=== PATIENT | male | born 1950 | race Caucasian/White ===

== ENCOUNTER → 2016-09-20 | Outpatient (CLI) | payer BC ==
[2016-09-20 12:10] LABS: ALT 30 U/L (21-72); AST 30 U/L (17-59); Alkaline Phosphatase 41 U/L (38-126); Anion Gap 12 mmol/L; Blood Urea Nitrogen 26 mg/dL (9-20); Calcium 9.6 mg/dL (8.4-10.2); Carbon Dioxide 29 mmol/L (22-30); Chloride 103 mmol/L (98-107); Glucose 124 mg/dL (74-99); Non-African American GFR(MDRD) >60 (>60 ml/min/1.73 sqM); Potassium 4.4 mmol/L (3.5-5.1); Sodium 144 mmol/L (137-145); Total Protein 7.1 g/dL (6.3-8.2)
[2016-09-20 12:59] LABS: Vitamin B12 367 pg/mL (239-931)
== END | disposition home or self-care (01) ==
LOC: LABWHC1 11:30
PROVIDERS: ATTEND Internal Medicine Endocrinology, Diabetes & Metabolism
DX: E11.65 Type 2 diabetes mellitus with hyperglycemia (principal)
CPT/HCPCS: 36415; 80053; 82533; 82607; 84403; 84439; 84443

== ENCOUNTER → 2016-10-11 | Outpatient (CLI) | payer BC ==
[2016-10-11 12:56] LABS: CH 31.5; HCT 37.1 % (39.0-53.0); HDW 2.91; HGB 12.6 gm/dL (13.0-17.5); MCH 30.6 pg (25.0-35.0); MCHC 33.9 g/dL (31.0-37.0); MCV 90.3 fL (80.0-100.0); Mean Platelet Volume 6.7; RBC 4.11 m/uL (4.30-5.90); RDW 13.2 % (11.5-15.5); WBC 6.9 k/uL (3.8-10.6)
[2016-10-11 13:46] LABS: Prostate Specific Antigen 0.99 ng/mL (0.00-4.00)
== END | disposition home or self-care (01) ==
LOC: LABWHC1 12:19
PROVIDERS: ATTEND Internal Medicine Endocrinology, Diabetes & Metabolism
DX: E29.1 Testicular hypofunction (principal)
CPT/HCPCS: 36415; 83001; 83002; 84153; 84403; 85027

== ENCOUNTER → 2016-11-03 | Outpatient (CLI) | payer BC, OTHER | END | disposition home or self-care (01) | LOC: LABWHC1 11:33 | PROVIDERS: ATTEND Internal Medicine Endocrinology, Diabetes & Metabolism | DX: E29.1 Testicular hypofunction (principal) | CPT/HCPCS: 36415; 84403 ==

== ENCOUNTER → 2016-11-08 | Outpatient (CLI) | payer BC, OTHER ==
--- NOTE | 2016-11-08 20:26 | US ---
EXAMINATION TYPE: US kidneys/renal and bladder DATE OF EXAM: 11/08/2016 4:57 PM COMPARISON: 07/29/2015 CLINICAL HISTORY: RT flank pain R10.9. Renal stones removed from bilateral kidney in July 2016; d iabetic EXAM MEASUREMENTS: Right Kidney: 10.0 x 6.4 x 5.1 cm Left Kidney: 11.1 x 5.3 x 5.1 cm Post Void Residual Volume: patient was unable to void TECHNOLOGIST IMPRESSION: wnl Right Kidney: No hydronephrosis or masses seen Left Kidney: mid medial cortical cyst = 2.2 x 3.2 x 2.0cm; mid pole hyperechoic focus with posterior shadowing = 0.3 x 0.3 x 0.3; hyperechoic wedge shaped junctional defect mid cortex; sonographic"sweat sign" is noted adjacent to left kidney which suggests renal failure. Bladder: Limited by incomplete distention. Bilateral Jets seen: not seen after 3 minute observation IMPRESSION: 1. Simple appearing left renal cyst is stable. 2. Nonobstructing 3 mm left renal calculus.
== END | disposition home or self-care (01) ==
LOC: RADUSWWP 16:26
PROVIDERS: ATTEND Internal Medicine
DX: N28.1 Cyst of kidney, acquired (principal); N20.0 Calculus of kidney
CPT/HCPCS: 76770

== ENCOUNTER → 2016-11-16 | Outpatient (CLI) | payer BC, OTHER ==
--- NOTE | 2016-11-17 09:10 | MR ---
EXAMINATION TYPE: MR shoulder RT wo con DATE OF EXAM: 11/16/2016 8:31 PM COMPARISON: NONE HISTORY: Rt shoulder, arm and side pain TECHNIQUE: Multiplanar, multisequence imaging of the right shoulder is performed without contrast. FINDINGS: Rotator Cuff: There is a partial full-thickness tear at the anterior insertion of the rotator cuff, t he rotator cuff shows increased signal compatible with tendinosis near its insertion more posteriorly , the posterior insertion also shows suggestion of partial full-thickness tear at its margin. Fluid s ignal in the subacromial subdeltoid bursa. Acromioclavicular Joint: Hypertrophic change causes mass effect on the musculotendinous junction of s upraspinatus Glenohumeral Joint: Intact Labrum: Superior labrum shows some abnormal signal and possible irregularity, truncation, there may b e some degenerative internal signal, there may be a small tear posteriorly at the superior aspect. Biceps Tendon: Shows normal position in the bicipital groove. Some fluid signal is present along the biceps tendon, some thickening suggesting some tendinosis proximally Bone marrow signal: Maintained Other: Distal acromion shows possible small spur, correlate for possible impingement. IMPRESSION: Partial full-thickness tear as described of the rotator cuff. Correlate for impingement. Additional f indings above.
== END | disposition home or self-care (01) ==
LOC: RADMRIMAIN 19:43
PROVIDERS: ATTEND Orthopaedic Surgery
DX: M75.111 Incomplete rotator cuff tear or rupture of right shoulder, not specified as traumatic (principal)

== ENCOUNTER → 2017-04-20 | Outpatient (CLI) | payer OTHER, MEDICARE ==
--- NOTE | 2017-04-20 10:05 | MR ---
EXAMINATION TYPE: MR cervical spine wo con DATE OF EXAM: 04/20/2017 COMPARISON: NONE HISTORY: Neck pain TECHNIQUE: Multiplanar, multisequence images of the cervical spine were acquired. C2-C3: No evidence for degenerative disc disease. No disc bulge/herniation or protrusion. No Canal stenosis. Foramina are patent bilaterally. C3-C4: Small central protrusion is present with minimal anterior thecal sac compression. No spinal ca nal stenosis or neural foraminal stenosis is present. C4-C5: There is left paracentral focal bulging with mild anterior thecal sac compression. This is in close approximation with spinal cord. No spinal canal stenosis stenosis is present. There is moderate left foraminal narrowing. C5-C6: There is loss of disc height through this level. No spinal canal stenosis or neural foraminal stenosis is present. C6-C7: There is a large central broad-based disc herniation with extension beyond the endplates. This has moderate anterior thecal sac compression. This comes in close approximation with spinal cord. Co rd deformity is not identified. No spinal canal narrowing is present at the inferior C6 level with an AP diameter is 0.9 cm. Disc space narrowing is present. Bilateral moderate foraminal narrowing is pr esent. C7-T1: Minimal disc bulge has anterior thecal sac flattening. No AP spinal canal stenosis or neural f oraminal stenosis present. Cervical segments are intact. There is normal alignment. Cervical spinal cord is of normal signal. Craniovertebral junction relationships are within normal limits. IMPRESSION: 1. Large disc herniation C6-7 contributes to mild canal narrowing. 2. Loss of disc height C5-6. 3. Foraminal narrowing C6-7 bilaterally and on the right C4-5.
== END | disposition home or self-care (01) ==
LOC: RADMRIMAIN 07:05
PROVIDERS: ATTEND Orthopaedic Surgery
DX: Z47.89 Encounter for other orthopedic aftercare (principal); M48.02 Spinal stenosis, cervical region; M99.71 Connective tissue and disc stenosis of intervertebral foramina of cervical region; M50.121 Cervical disc disorder at C4-C5 level with radiculopathy; E11.9 Type 2 diabetes mellitus without complications; Z98.890 Other specified postprocedural states
CPT/HCPCS: 72141

== ENCOUNTER → 2017-09-28 | Outpatient (CLI) | payer MEDICARE ==
--- NOTE | 2017-09-28 10:24 | BD ---
EXAMINATION TYPE: MG DEXA axial skeleton. DATE OF EXAM: 09/28/2017 COMPARISON: NONE CLINICAL HISTORY: Calcification and ossification of muscle. Screening for osteoporosis. Height: Weight: FRAX RISK QUESTIONS: Alcohol (3 or more units per day): no Family History (Parent hip fracture): yes /mother Glucocorticoids (More than 3mos): no (Ex: prednisone, prednisolone, methylprednisolone, dexamethasone, and hydrocortisone). History of Fracture in Adulthood: no Secondary Osteoporosis: 1. Type 1 Diabetes: no 2. Hyperthyroidism: no 3. Menopause before 45: na 4. Malnutrition: no 5. Chronic liver disease: no Rheumatoid Arthritis: no Current Tobacco Use: no RISK FACTORS HISTORY OF: Surgery to Spine/Hip(right/left)/Wrist (right/left): no Family History of Osteoporosis: no Active: yes Diet low in dairy products/other sources of calcium: yes Lost more than 2 inches in height since high school: yes Frequent falls: no Poor Health: no Hyperparathyroidism: no Adrenal Insufficiency: no MEDICATIONS: metformin, Januvia, lexapro, lopressor, lovastatin, vit c Additional History: EXAM MEASUREMENTS: Bone mineral densitometry was performed using the [employer] System. Bone mineral density as measured about the Lumbar spine is: ----- L1-L4(G/cm2): 1.192 T Score Values are as follows: ----- L2: 0.3 ----- L3: 0.4 ----- L4: 0.6 ----- L1-L4: 0.1 Bone mineral density has: baseline Bone mineral density about the R hip (g/cm2): 0.926 Bone mineral density about the L hip (g/cm2): 0.980 T Score values are as follows: -----R Neck: -0.8 -----L Neck: -0.4 -----R Total: 0.1 -----L Total: 0.3 Bone mineral density has: baseline IMPRESSION: Normal (Values between +1 and -1 indicate normal bone mass). Consider repeating this study in 5 year s or sooner if there is some new clinical indication. NOTE: T-SCORE=SD OF THE YOUNG ADULT MEAN.
== END | disposition home or self-care (01) ==
LOC: RADBDWWP 09:21
PROVIDERS: ATTEND Internal Medicine
DX: M61.9 Calcification and ossification of muscle, unspecified (principal)
CPT/HCPCS: 77080

== ENCOUNTER 2018-05-26 09:45 | Emergency (ER) | payer MEDICARE, OTHER ==
[2018-05-26 09:51] VITALS: RESP 18
[2018-05-26] MEDS ORDERED: ACETAMINOPHEN TAB 500 MG TAB PO STA (10:06)
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
--- NOTE | 2018-05-26 12:11 | XR ---
EXAMINATION TYPE: XR pelvis AP view , ONE VIEW DATE OF EXAM ORDERED: 05/26/2018 HISTORY: Pain. COMPARISON: Previous study dated 10/29/2009. FINDINGS: Osseous structures about the pelvis are normal. No fracture, dislocation or other acute os seous lesion is seen. IMPRESSION: NO ACUTE OSSEOUS LESION.
--- NOTE | 2018-05-26 12:12 | XR ---
EXAMINATION TYPE: XR chest 2V DATE OF EXAM: 05/26/2018 HISTORY: Pain. REFERENCE: Previous study dated 07/29/2015. FINDINGS: The lungs are clear. Pleural spaces are clear. The heart is not enlarged. IMPRESSION: NO ACUTE INTRATHORACIC ABNORMALITY.
--- NOTE | 2018-05-26 12:13 | XR ---
EXAMINATION TYPE: XR shoulder complete LT , 3 VIEWS DATE OF EXAM ORDERED: 05/26/2018 HISTORY: Pain. COMPARISON: None. FINDINGS: No fracture, dislocation or other acute osseous lesion is seen. There are hypertrophic mariya nges present in the left AC joint. IMPRESSION: NO ACUTE OSSEOUS LESION.
[2018-05-26 13:15] VITALS: BP 150/72; PULSE 60; TEMP 98.2
== END 2018-05-26 12:45 | disposition home or self-care (01) ==
LOC: EC 09:45
DX: S00.01XA Abrasion of scalp, initial encounter (principal); M62.830 Muscle spasm of back; R07.89 Other chest pain; M25.512 Pain in left shoulder; E78.5 Hyperlipidemia, unspecified; I10 Essential (primary) hypertension; E11.9 Type 2 diabetes mellitus without complications; F32.9 Major depressive disorder, single episode, unspecified; Z79.84 Long term (current) use of oral hypoglycemic drugs; Z79.899 Other long term (current) drug therapy; Z95.9 Presence of cardiac and vascular implant and graft, unspecified; V49.9XXA Car occupant (driver) (passenger) injured in unspecified traffic accident, initial encounter; Y92.410 Unspecified street and highway as the place of occurrence of the external cause
CPT/HCPCS: 70450; 71046; 72125; 72170; 99285

== ENCOUNTER 2018-09-19 06:14 | Emergency (ER) | payer MEDICARE ==
[2018-09-19 06:22] VITALS: RESP 18
--- NOTE | 2018-09-19 07:32 | ED ---
General Adult HPI - General Chief complaint: Extremity Injury, Lower Stated complaint: Rt Foot Pain Time Seen by Provider: 09/19/18 07:00 Source: patient, RN notes reviewed Mode of arrival: ambulatory Limitations: no limitations - History of Present Illness Initial comments: This is a 68-year-old male presents emergency Department with a rapid heart tender first MTP joint on the right foot. Patient states she's had gout in the past. Patient states this feels exactly like the gout. Patient denies any fever patient denies any redness or streaking up the leg. Patient denies any other problems at this time. Patient states she woke up this morning was so tender he could not barely touch it or walk on it. Patient is coming in for pain relief. - Related Data Home Medications Medication Instructions Recorded Confirmed metFORMIN HCL [Glucophage] 1,000 mg PO BID 04/24/15 09/19/18 sitaGLIPtin [Januvia] 100 mg PO DAILY 04/24/15 09/19/18 Ascorbic Acid [Vitamin C] 500 mg PO DAILY 07/29/15 09/19/18 Cholecalciferol [Vitamin D3] 2,000 unit PO DAILY 07/29/15 09/19/18 Lisinopril [Zestril] 10 mg PO DAILY 08/12/16 09/19/18 Metoprolol Tartrate [Lopressor] 25 mg PO QAM 08/12/16 09/19/18 Escitalopram Oxalate [Lexapro] 10 mg PO HS 09/19/18 09/19/18 Escitalopram Oxalate [Lexapro] 20 mg PO DAILY 09/19/18 09/19/18 Ibuprofen [Motrin Ib] 600 mg PO Q6H PRN 09/19/18 09/19/18 Multivitamins, Thera [Multivitamin 2 tab PO DAILY 09/19/18 09/19/18 (formulary)] Previous Rx's Medication Instructions Recorded Hydrocodone/Acetaminophen [[place] 1 each PO Q4HR PRN #14 tab 09/19/18 5-325] Indomethacin [Indocin] 50 mg PO Q8H #15 capsule 09/19/18 Allergies Allergy/AdvReac Type Severity Reaction Status Date / Time No Known Allergies Allergy Verified 09/19/18 06:50 Review of Systems ROS Statement: Those systems with pertinent positive or pertinent negative responses have been documented in the HPI. ROS Other: All systems not noted in ROS Statement are negative. Past Medical History Past Medical History: Asthma, Diabetes Mellitus, Hyperlipidemia, Hypertension, Skin Disorder Additional Past Medical History / Comment(s): hx heart murmer, kidney stones, umbilical hernia, History of Any Multi-Drug Resistant Organisms: None Reported Past Surgical History: Heart Catheterization, Orthopedic Surgery, Tonsillectomy Additional Past Surgical History / Comment(s): rt knee surgery, mole removed from rt upper chest, Past Anesthesia/Blood Transfusion Reactions: No Reported Reaction Past Psychological History: Depression Smoking Status: Never smoker Past Alcohol Use History: None Reported Past Drug Use History: None Reported - Past Family History Sister(s) Family Medical History: Deep Vein Thrombosis (DVT) General Exam - General Exam Comments Initial Comments: GENERAL Patient is well-developed and well-nourished. Patient is in mild distress. EYES Patient's pupils are equal and round. Extraocular motion is intact SKIN Unremarkable NEURO The patient is alert and oriented 3 PYSCH Patient has normal interpersonal interactions. MUSCULOSKELETAL Right toe is red at the first MTP joint. There is no streaking there is no redness of the foot. The area that is red and is extremely tender to touch. Limitations: no limitations Course Vital Signs 09/19/18 06:18 Temperature 97.8 F Pulse Rate 83 Respiratory 18 Rate Blood Pressure 151/85 O2 Sat by Pulse 98 Oximetry Disposition Clinical Impression: Gout Disposition: HOME SELF-CARE Condition: Good Instructions (If sedation given, give patient instructions): Gout (ED) Prescriptions: Hydrocodone/Acetaminophen [[place] 5-325] 1 each PO Q4HR PRN #14 tab PRN Reason: Pain Indomethacin [Indocin] 50 mg PO Q8H #15 capsule Is patient prescribed a controlled substance at d/c from ED?: Yes When asked, does pt state using other controlled substances?: No If prescribed controlled substance>3 days was MAPS reviewed?: Prescribed <3 Days If opioid is for acute pain is fill amount 7 days or less?: Yes If Rx opioid, was Start Talking consent form obtained?: Yes Referrals: Johnathon Monteiro MD [Primary Care Provider] - 1-2 days Time of Disposition: 07:28
[2018-09-19 07:57] VITALS: BP 117/76; PULSE 70; TEMP 98.3
== END 2018-09-19 07:53 | disposition home or self-care (01) ==
LOC: EC 06:14
DX: M10.9 Gout, unspecified (principal); E11.9 Type 2 diabetes mellitus without complications; I10 Essential (primary) hypertension; F32.9 Major depressive disorder, single episode, unspecified; Z95.818 Presence of other cardiac implants and grafts; Z79.84 Long term (current) use of oral hypoglycemic drugs; Z79.899 Other long term (current) drug therapy
CPT/HCPCS: 99283

== ENCOUNTER → 2018-10-11 | Outpatient (CLI) | payer MEDICARE ==
--- NOTE | 2018-10-11 15:33 | XR ---
Abdomen HISTORY: Calculus of kidney Frontal view of the abdomen on 2 images correlated prior exam 08/24/2016 There is calcification over the lower pole the left kidney measuring approximately 6 to 7 mm in great est dimension. Lung bases are clear. There is no evident pneumoperitoneum or bowel obstruction. Calci fications in the pelvis felt likely to be vascular. IMPRESSION: Nephrolithiasis left kidney.
== END ==
LOC: RADXRMAIN 15:02
PROVIDERS: ATTEND Urology
DX: N20.0 Calculus of kidney (principal)
CPT/HCPCS: 74018

== ENCOUNTER → 2018-10-19 | Outpatient (CLI) | payer MEDICARE ==
--- NOTE | 2018-10-19 10:15 | XR ---
EXAMINATION TYPE: XR KUB DATE OF EXAM: 10/19/2018 COMPARISON: 10/11/2018 HISTORY: Renal calculus TECHNIQUE: One view abdominal series FINDINGS: The osseous structures are intact. The bowel gas pattern is nonspecific. Right kidney: No definite calculi Left kidney: There are 2 definite calcifications. Mid pole 3 mm calcification and Stable 7 mm lower p ole left renal calculus. Tiny 1 to 2 mm additional lower pole calculus suspected. Pelvis: Within the pelvis there are stable appearing calcifications likely vascular. Hypertrophic mariya nge of the hips noted. Hypertrophic and degenerative change of the spine. IMPRESSION: 1. Stable left-sided nephrolithiasis.
== END ==
LOC: RADXRMAIN 09:39
PROVIDERS: ATTEND Urology
DX: N20.0 Calculus of kidney (principal)
CPT/HCPCS: 74018

== ENCOUNTER → 2019-05-06 | Outpatient (CLI) | payer MEDICARE ==
--- NOTE | 2019-05-06 13:07 | XR ---
EXAMINATION TYPE: XR KUB DATE OF EXAM: 05/06/2019 COMPARISON: NONE HISTORY: Pain TECHNIQUE: One view abdominal series FINDINGS: The osseous structures are intact. The bowel gas pattern is nonspecific. Calcifications are seen ove rlying the left kidney the largest measuring 7 mm. Additional calcifications in the pelvis are stable . Hypertrophic change of the vertebral column and hips noted. IMPRESSION: 1. There are approximately 3 calcifications overlying the mid and lower pole the left kidney largest measuring 7 mm. 2. Pelvic calcifications are stable from the prior exam and therefore likely vascular
== END | disposition home or self-care (01) ==
LOC: RADXRMAIN 12:18
PROVIDERS: ATTEND Urology
DX: N28.89 Other specified disorders of kidney and ureter (principal)
CPT/HCPCS: 74018

== ENCOUNTER 2019-05-30 06:15 | Day surgery (SDC) | payer MEDICARE ==
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
[2019-05-29 09:39] VITALS: BMI 27.9
[~2019-05-30 06:15] MED LIST: GENTAMICIN 140 MG in SODIUM CHLORIDE 0.9% 100 ML IVPB ONE; HYDROmorphone 0.5 MG/0.5 ML SYRINGE IVP PRN; LACTATED RINGERS 1,000 ML IV SCH; LIDOCAINE 1% 20 ML VIAL (10MG/ML) FOR IV START INTRADERMA PRN; ONDANSETRON 4 MG/2 ML VIAL IVP ONE
[2019-05-30] MEDS ORDERED: LACTATED RINGERS 1,000 ML IV ONE ×2 (06:44→08:21)
[2019-05-30 06:54] LABS: Glucose,Whole Blood 151 mg/dL (75-99)
[2019-05-30] MEDS ORDERED: ONDANSETRON 4 MG/2 ML VIAL IVP ONE (06:58)
[2019-05-30] MEDS ORDERED: MIDAZOLAM 2 MG/2 ML VIAL ONE (07:25)
[2019-05-30] MEDS ORDERED: fentaNYL (PF) 50 MCG/ML 2 ML AMP ONE (07:25)
[2019-05-30] MEDS ORDERED: ePHEDrine SULFATE/0.9% NACL/PF 50 MG/5 ML SYRINGE IV ONE (07:25)
[2019-05-30] MEDS ORDERED: PROPOFOL 10 MG/ML 20 ML VIAL IV ONE (07:25)
[2019-05-30] MEDS ORDERED: PHENYLEPHRINE-0.9% NACL SYG 1 MG/10 ML SYRINGE ONE (07:25)
[2019-05-30] MEDS ORDERED: SUCCINYLCHOLINE CHLORIDE 100 MG/5 ML SYR IV ONE (07:25)
[2019-05-30] MEDS ORDERED: LIDOCAINE 1% INJ 10MG/ML (20 ML MDV) ONE (07:25)
[2019-05-30] MEDS ORDERED: IOPAMIDOL-370 50ML BTL MISCELLANE ONE ×2 (09:06)
--- NOTE | 2019-05-30 09:47 | XR ---
EXAMINATION TYPE: XR abdomen 1V DATE OF EXAM: 05/30/2019 COMPARISON: 05/16/2019 HISTORY: Preop TECHNIQUE: One view abdominal series FINDINGS: Left kidney: There are approximately 6 calcifications overlying the left renal outline the largest me asuring 7 mm. Right kidney: No definite calcifications. Right-sided double-J ureteral stent noted. Pelvis: Nonspecific bilateral pelvic calculi are stable from the prior exam. Mild hypertrophic changes of vertebral column. Arthropathy of the hip joints. Bowel gas pattern nonsp ecific. IMPRESSION: 1. Stable left-sided nephrolithiasis. 2. Right-sided double-J ureteral stent.
[2019-05-30 09:53] VITALS: RESP 16; TEMP 97.4
[2019-05-30 10:55] VITALS: BP 143/65; PULSE 80
--- NOTE | 2019-05-30 11:31 | FL ---
EXAMINATION TYPE: FL urography retrograde DATE OF EXAM: 05/30/2019 COMPARISON: NONE HISTORY: Fluoroscopy TECHNIQUE: Fluoroscopy. FINDINGS: 1.03 minutes of fluoroscopy provided. IMPRESSION: As Above.
[2019-05-30 11:38] LABS: Glucose,Whole Blood 187 mg/dL (75-99)
--- NOTE | 2019-05-30 18:54 | P.OP ---
Date of Procedure: 05/30/19 Preoperative Diagnosis: ureteral calculus Postoperative Diagnosis: same Procedure(s) Performed: cystoscopy right sided ureteroscopy holmium laser lithotripsy stone basketing and stent exchange, left retrograde pyelogram Implants: 4.8-Greek by 26 cm stent Indications for Procedure: 69-year-old male that presented with a right-sided ureteral calculi status post stent placement he presents today for right-sided ureteroscopy. I have explained the operation/procedure to the patient, including the risks, benefits, side effects, alternative therapies (including not receiving the proposed treatment or service), the likelihood of the patient achieving his/her goals, and potential recuperation problems for the procedure/sedation/analgesia, as well as any blood products, if indicated. I also explained to the patient the risks, benefits and side effects of the alternatives, as well as the risks related to not receiving the proposed procedure, care, treatment, or services Operative Findings: multipe calculus in the right distal ureter Description of Procedure: the patient was brought to the operating room and general anesthesia was in duced. He was prepped and draped in sterile fashion and placed in dorsal lithotomy position. Cystoscope fitted with a 22 sheath was inserted per urethra and advanced into the bladder the stent was grasped with a stent grasper and removed intact. Next the cystoscope was reinserted per urethra into the bladder on the right ureteral orifice was visualized. We attempted to place a wire into the ureteral orifice but the stone was impacted at the UVJ. At this time a rigid ureteroscope was inserted and advanced into the bladder stone was fragmented using holmium laser lithotripsy. And stone basketing was performed. Of note there were multiple calculi more than 5 calculus in total along the distal ureter all the stones were broken up using the holmium laser and basketing using the zero tip stone basket. After the stones were cleared the ureteroscope was advanced into the proximal ureter no additional stones were visualized the ureteroscope was withdrawn and a Glidewire was advanced through the ureteroscope and into the renal pelvis. Next a 12-14 Greek access sheath was advanced over the Glidewire into the renal pelvis. Flexible ureteroscopy was inserted per sheath and renoscopy was performed which showed no calculus in the kidney. RPG was also performed which showed no filling defects. Pullback ureteroscopy confirmed no injury to the ureter and no residual stones. Next a cystoscope fitted with a 22 sheath was inserted per urethra the right ureteral orifice was visualized and a 0.035 Glidewire was advanced to the renal pelvis. A 4.8-Greek by 26 cm stent was advanced over the wire into the renal pelvis, curl was confirmed fluoroscopically proximally and using the cystoscope distally attention was then carried to the left side, the left ureteral orifice was intubated with a 5-Greek open-ended catheter and retrograde pyelogram was performed which showed no hydronephrosis or any evidence of stone along the ureter. There were 2 radiopaque stones in the left kidney. The bladder was emptied at the end of the case and the cystoscope withdrawn withdrawn the patient was awakened from anesthesia and taken to PACU in stable condition
== END 2019-05-30 11:41 | disposition home or self-care (01) ==
LOC: OR 06:15
PROVIDERS: ATTEND Urology
DX: N20.1 Calculus of ureter (principal); I10 Essential (primary) hypertension; E78.5 Hyperlipidemia, unspecified; E11.9 Type 2 diabetes mellitus without complications; J45.909 Unspecified asthma, uncomplicated; F32.9 Major depressive disorder, single episode, unspecified; Z87.442 Personal history of urinary calculi; Z84.89 Family history of other specified conditions; Z79.84 Long term (current) use of oral hypoglycemic drugs; Z79.899 Other long term (current) drug therapy
CPT/HCPCS: 52320; 52332; 82365; 74420; 74018; C2625; C1769; C1894; C1758; J2250; J0690; J2405; J2001; J3010; J1580; J2370; J0330; J2704; Q9967

== ENCOUNTER → 2019-07-08 | Outpatient (CLI) | payer MEDICARE ==
--- NOTE | 2019-07-08 12:22 | XR ---
KUB HISTORY: Renal calculus Frontal KUB submitted on 2 images And correlation to prior exam 05/06/2019 05/30/2019 There are probable vascular calcifications noted within the pelvis. The calcifications seen over the left kidney are not seen with certainty on today's exam, there is overlying bowel gas. Mid pole calcu fifi may be present, there is possible fragmentation of the lower pole the left kidney calculus. IMPRESSION: Suspect interval lithotripsy. Probable left-sided nephrolithiasis. Limitations as describ ed.
== END | disposition home or self-care (01) ==
LOC: RADXRMAIN 10:39
PROVIDERS: ATTEND Urology
DX: N20.0 Calculus of kidney (principal)
CPT/HCPCS: 74018

== ENCOUNTER 2020-04-06 13:10 | Emergency (ER) | payer MEDICARE ==
[2020-04-06 13:17] VITALS: TEMP 98.1
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
[2020-04-06] MEDS ORDERED: TETANUS-DIPHTHERIA TOX (PF) 0.5 ML VIAL IM ONE (14:03)
[2020-04-06] MEDS ORDERED: DIPH,PERTUS(ACELL)TETVAC-LF 0.5 ML VIAL IM ONE (14:45)
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
[2020-04-06] MEDS ORDERED: fentaNYL (PF) 50 MCG/ML 2 ML AMP IVP STA (15:08)
[2020-04-06] MEDS ORDERED: fentaNYL (PF) 50 MCG/ML 2 ML AMP IM STA (15:16)
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
[2020-04-06] MEDS ORDERED: BACITRACIN OINT 1 EACH PACKET TOPICAL ONE (16:15)
[2020-04-06 16:30] VITALS: BP 107/66; PULSE 70; RESP 18
== END 2020-04-06 16:25 | disposition home or self-care (01) ==
LOC: EC 13:10
DX: S50.812A Abrasion of left forearm, initial encounter (principal); S00.31XA Abrasion of nose, initial encounter; S50.811A Abrasion of right forearm, initial encounter; S80.212A Abrasion, left knee, initial encounter; S80.211A Abrasion, right knee, initial encounter; S60.418A Abrasion of other finger, initial encounter; R11.0 Nausea; E11.9 Type 2 diabetes mellitus without complications; I10 Essential (primary) hypertension; F32.9 Major depressive disorder, single episode, unspecified; Z23 Encounter for immunization; Z79.899 Other long term (current) drug therapy; Z79.84 Long term (current) use of oral hypoglycemic drugs; Y93.55 Activity, bike riding; V27.4XXA Motorcycle driver injured in collision with fixed or stationary object in traffic accident, initial encounter; Y92.488 Other paved roadways as the place of occurrence of the external cause
CPT/HCPCS: 90471; 96372; 99284; 73562; 73090; 72170; 73030; 73060; 72125; 70486; 70450; 71250; 90715; J3010

== ENCOUNTER → 2020-05-26 | Outpatient (CLI) | payer MEDICARE ==
--- NOTE | 2020-05-26 12:51 | XR ---
KUB history: N 20.0 Frontal KUB submitted and correlated prior KUB 07/08/2019, ultrasound 05/21/2020 There is no evident bowel obstruction or pneumoperitoneum. Vague calcification present over the lower pole left kidney measures only 2 to 3 mm. Overlying bowel gas may obscure underlying detail. Vascula r calcifications are present within the pelvis. Difficult to exclude distal ureteral calculus. IMPRESSION: Indeterminate pelvic calcifications, there may be distal ureteral calculus on the right, left-sided nephrolithiasis
== END | disposition home or self-care (01) ==
LOC: RADXRMAIN 11:42
PROVIDERS: ATTEND Urology
DX: N20.0 Calculus of kidney (principal)
CPT/HCPCS: 74018

== ENCOUNTER → 2020-06-09 | Outpatient (CLI) | payer MEDICARE ==
[2020-06-09 11:56] LABS: Calcium 9.4 mg/dL (8.4-10.2); Potassium 4.7 mmol/L (3.5-5.1)
[2020-06-09 12:04] LABS: Appearance,Urine Clear (Clear); Bilirubin,Urine Negative (Negative); Blood,Urine Negative (Negative); Color,Urine Yellow; Glucose,Urine (UA) Negative (Negative); Ketones,Urine Negative (Negative); Leukocyte Esterase,Urine Negative (Negative); Nitrite,Urine Negative (Negative); Protein,Urine Trace (Negative); Specific Gravity,Urine 1.022 (1.001-1.035); Urobilinogen,Urine <2.0 mg/dL (<2.0)
[2020-06-09 12:33] LABS: Basophils # (A) 0.1 k/uL (0-0.2); Basophils % (A) 1 %; Eosinophils # (A) 0.4 k/uL (0-0.7); Eosinophils % (A) 5 %; HGB 12.6 gm/dL (13.0-17.5); Lymphocytes # (A) 1.8 k/uL (1.0-4.8); Lymphocytes % (A) 24 %; MCH 32.1 pg (25.0-35.0); MCV 94.3 fL (80.0-100.0); Mean Platelet Volume 6.8; Monocytes # (A) 0.4 k/uL (0-1.0); Monocytes % (A) 6 %; Neutrophils # (A) 4.7 k/uL (1.3-7.7); Neutrophils % (A) 63 %; Platelet Count 189 k/uL (150-450); RBC 3.92 m/uL (4.30-5.90); RDW 12.9 % (11.5-15.5); WBC 7.5 k/uL (3.8-10.6)
== END | disposition home or self-care (01) ==
LOC: LABPAT 10:21
PROVIDERS: ATTEND Urology
DX: Z01.818 Encounter for other preprocedural examination (principal); E11.9 Type 2 diabetes mellitus without complications; N20.1 Calculus of ureter; R31.29 Other microscopic hematuria
CPT/HCPCS: 36415; 80048; 81003; 85025; 87086

== ENCOUNTER 2020-06-15 09:48 | Day surgery (SDC) | payer MEDICARE ==
[2020-06-12 11:10] VITALS: BMI 27.0
[~2020-06-15 09:48] MED LIST changes: +DEXAMETHASONE SOD PHOSPHATE 10 MG/ML 1 ML VIAL IV ONE; -GENTAMICIN 140 MG in SODIUM CHLORIDE 0.9% 100 ML IVPB ONE; -LIDOCAINE 1% 20 ML VIAL (10MG/ML) FOR IV START INTRADERMA PRN
--- NOTE | 2020-06-15 09:59 | P.HPIHPCON ---
History of Present Illness H&P Date: 06/15/20 Chief Complaint: right flank pain Mr Powell is a 70 yo male with hx of recurrent Uric acid stones. He is been having recurrent flank pain, he is been passing small stone fragments. He underwent RBUS that showed a 9 mm right sided renal stone. I discussed the option of doing right sided ureteroscopy with holmium laser lithotripsy with him. Discussed risk of bleeding and infection and injury to the ureter. He understood all the risks and agreed to proceed. Consent for Procedure: I have explained the operation/procedure to the patient, including the risks, benefits, side effects, alternative therapies (including not receiving the proposed treatment or service), the likelihood of the patient achieving his/her goals, and potential recuperation problems for the procedure/sedation/analgesia, as well as any blood products, if indicated. I also explained to the patient the risks, benefits and side effects of the alternatives, as well as the risks related to not receiving the proposed procedure, care, treatment, or services. Past Medical History Past Medical History: Asthma, Diabetes Mellitus, Hyperlipidemia, Hypertension Additional Past Medical History / Comment(s): hx heart murmer, kidney stones, umbilical hernia, states does not use inhaler for asthma History of Any Multi-Drug Resistant Organisms: None Reported Past Surgical History: Orthopedic Surgery Additional Past Surgical History / Comment(s): rt knee surgery, mole removed from rt upper chest, rt shoulder-rotator cuff, lithotripsy, cystoscopy Past Anesthesia/Blood Transfusion Reactions: No Reported Reaction Smoking Status: Never smoker - Past Family History Sister(s) Family Medical History: Deep Vein Thrombosis (DVT) Medications and Allergies Home Medications Medication Instructions Recorded Confirmed Type metFORMIN HCL [Glucophage] 1,000 mg PO BID 04/24/15 06/12/20 History lisinopriL [Zestril] 10 mg PO QAM 08/12/16 06/12/20 History Escitalopram Oxalate [Lexapro] 10 mg PO HS 09/19/18 06/12/20 History Escitalopram Oxalate [Lexapro] 20 mg PO QAM 09/19/18 06/12/20 History Multivitamins, Thera [Multivitamin 2 tab PO DAILY 09/19/18 06/12/20 History (formulary)] glipiZIDE [Glucotrol] 5 mg PO BID 05/29/19 06/12/20 History glipiZIDE [Glucotrol] 5 mg PO BID 05/29/19 06/12/20 History Gabapentin [Neurontin] 400 mg PO TID PRN 06/12/20 06/12/20 History Lovastatin [Mevacor] 40 mg PO HS 06/12/20 06/12/20 History Semaglutide [Ozempic] 0.5 mg INJ FR 06/12/20 06/12/20 History glipiZIDE [Glucotrol] 5 mg PO BID 06/12/20 06/12/20 History Allergies Allergy/AdvReac Type Severity Reaction Status Date / Time No Known Allergies Allergy Verified 06/12/20 11:02 Surgical - Exam - General well developed, well nourished - Eyes PERRL, normal ocular movement - Respiratory normal expansion, normal respiratory effort - Abdomen Abdomen: soft, non tender Assessment and Plan Assessment: 70 yo hx of right flank pain and 9 mm right sided renal stone -OR for right sided ureteroscopy with holmium laser lithotripsy
--- NOTE | 2020-06-15 10:17 | XR ---
KUB HISTORY: Kidney stone Frontal KUB submitted on 2 images and correlated to prior exam 05/26/2020 Multiple calcifications are seen within the pelvis similar to prior exam. Punctate calcifications see n overlying the left kidney. Exam is stable. IMPRESSION: Stable exam.
[2020-06-15] MEDS ORDERED: LIDOCAINE 1% (10MG/ML) FOR IV START INTRADERMA ONE (11:18)
[2020-06-15 11:22] LABS: Glucose,Whole Blood 128 mg/dL (75-99)
[2020-06-15] MEDS ORDERED: MIDAZOLAM 2 MG/2 ML VIAL IV ONE (12:58)
[2020-06-15] MEDS ORDERED: LIDOCAINE 1% INJ 10MG/ML (20 ML MDV) ONE (13:48)
[2020-06-15] MEDS ORDERED: PROPOFOL 10 MG/ML 20 ML VIAL IV ONE (13:48)
[2020-06-15] MEDS ORDERED: SUCCINYLCHOLINE CHLORIDE 100 MG/5 ML SYR IV ONE (13:48)
[2020-06-15] MEDS ORDERED: fentaNYL (PF) 50 MCG/ML 2 ML AMP ONE (13:48)
[2020-06-15] MEDS ORDERED: IOPAMIDOL-370 50ML BTL MISCELLANE ONE ×2 (14:15)
[2020-06-15] MEDS ORDERED: LACTATED RINGERS 1,000 ML IV ONE (14:15)
--- NOTE | 2020-06-15 14:52 | P.OP ---
Date of Procedure: 06/15/20 Preoperative Diagnosis: Right renal calculi Postoperative Diagnosis: Same Procedure(s) Performed: Cystoscopy, right ureteroscopy, holmium laser lithotripsy, retrograde pyelogram Implants: None Anesthesia: RONALDOA Surgeon: Vincent Arevalo Estimated Blood Loss (ml): 1 Pathology: none sent Condition: stable Disposition: PACU Indications for Procedure: Mr Powell is a 70 yo male with hx of recurrent Uric acid stones. He is been having recurrent flank pain, he is been passing small stone fragments. He underwent RBUS that showed a 9 mm right sided renal stone. I discussed the option of doing right sided ureteroscopy with holmium laser lithotripsy with him. Discussed risk of bleeding and infection and injury to the ureter. He understood all the risks and agreed to proceed. Operative Findings: multiple 1-2 mm calcification throughout the kidney, that were dusted using the holmium laser. No obstructive stones, mild hydronephrosis on Reterograde pyelogram, ureter is patent no signs of obstruction. Hydronephrosis most likely from recently passed stone, rather than obstruction Description of Procedure: Patient was brought to the operating room, general anesthesia was induced. He was prepped and draped so fashion a placement dorsal lithotomy position. Cystoscopy fitted with 21 sheath was inserted per urethra, cystoscopy was performed showed no abnormality within the bladder. At this time the right ureteral orifice was intubated with a 5-Urdu open-ended catheter, retrograde Polygram was performed showed no filling defect along the course a ureter mild swelling of the collecting system was noticed. At this time a sensor wire was advanced through the catheter, and the catheter was removed the wire in place. Next the flexible ureteroscope was advanced over the wire and renoscopy was p erformed which showed no free stones but multiple parenchymal stones. All measured between 1-2 mm in size. Using the holmium laser the stones were dusted, repeat renoscopy showed no sizable fragments or any free stones, retrograde pyelogram was performed to ensure that all calyces were evaluated. Pullback ureteroscopy was performed showed no injury to the ureter and no ureteral stone, of note the ureter was patent and there was no evidence of stricture. At this time the cystoscope was reinserted and the bladder was emptied. The patient was awakened from anesthesia and taken recovery in stable condition
[2020-06-15 15:16] VITALS: TEMP 97.5
[2020-06-15 15:23] VITALS: RESP 16
--- NOTE | 2020-06-15 15:28 | FL ---
Fluoroscopy HISTORY: Stent placement 43 seconds fluoroscopy time supplied to the referring clinician. 3 intraoperative C-arm images docum ent the procedure. See dictated report from urology.
[2020-06-15 15:30] LABS: Glucose,Whole Blood 172 mg/dL (75-99)
[2020-06-15 16:00] VITALS: BP 127/73; PULSE 78
== END 2020-06-15 16:20 | disposition home or self-care (01) ==
LOC: OR 09:48
PROVIDERS: ATTEND Urology
DX: N13.2 Hydronephrosis with renal and ureteral calculous obstruction (principal); E11.9 Type 2 diabetes mellitus without complications; J45.909 Unspecified asthma, uncomplicated; E78.5 Hyperlipidemia, unspecified; I10 Essential (primary) hypertension; K42.9 Umbilical hernia without obstruction or gangrene; F32.9 Major depressive disorder, single episode, unspecified; Z87.442 Personal history of urinary calculi; Z98.890 Other specified postprocedural states; Z87.2 Personal history of diseases of the skin and subcutaneous tissue; Z87.39 Personal history of other diseases of the musculoskeletal system and connective tissue; Z79.84 Long term (current) use of oral hypoglycemic drugs; Z79.899 Other long term (current) drug therapy; Z82.49 Family history of ischemic heart disease and other diseases of the circulatory system
CPT/HCPCS: 52353; 74420; 74018; C1758; C1769 ×2; J2250; J1100; J0690; J2405; J2001; J3010; J0330; J2704; Q9967

== ENCOUNTER 2021-06-01 12:09 | Emergency (ER) | payer MEDICARE ==
[2021-06-01 12:37] VITALS: PULSE 72; RESP 18
[2021-06-01] MEDS ORDERED: SODIUM CHLORIDE 0.9% 1,000 ML IV STA (13:58)
[2021-06-01] MEDS ORDERED: KETOROLAC 15 MG/ML 1 ML VIAL IVP STA (13:58)
--- NOTE | 2021-06-01 14:52 | ED ---
General Adult HPI - General Chief complaint: Urogenital Stated complaint: nausea, vomiting, abd pain Time Seen by Provider: 06/01/21 13:43 Source: patient, RN notes reviewed, old records reviewed Mode of arrival: ambulatory Limitations: no limitations - History of Present Illness Initial comments: Patient is a 71-year-old male presenting to emergency Department with complaints of left-sided flank pain that started suddenly today. He does have a long history of kidney stones, currently sees Dr. Arevalo for them. He actually had an appointment with him today at 4 PM however called her office stating that he had to come into the ER because of how bad his pain was. He states his pain currently did come down slightly, is currently a 6/10. Earlier was a 10/10. He describes the pain as left flank with radiation into the left side of his abdomen. He has been passing a lot of little stones over the past year, he is familiar with the pain but this was a lot more intense than usual. He does have some mild nausea. He denies any chest pain or shortness of breath, no fevers or chills. He did notice some mild hematuria today. Patient has no further complaints. His vitals are stable upon arrival. - Related Data Home Medications Medication Instructions Recorded Confirmed lisinopriL [Zestril] 10 mg PO QAM 08/12/16 06/15/20 Escitalopram Oxalate [Lexapro] 20 mg PO QAM 09/19/18 06/12/20 Multivitamins, Thera [Multivitamin 2 tab PO DAILY 09/19/18 06/12/20 (formulary)] Gabapentin [Neurontin] 400 mg PO TID PRN 06/12/20 06/12/20 Lovastatin [Mevacor] 40 mg PO HS 06/12/20 06/12/20 Previous Rx's Medication Instructions Recorded Ketorolac [Toradol] 10 mg PO Q8HR #15 tab 06/01/21 Ondansetron Odt [Zofran Odt] 4 mg PO Q8HR PRN #10 tab 06/01/21 Tamsulosin [Flomax] 0.4 mg PO DAILY #7 cap 06/01/21 Allergies Allergy/AdvReac Type Severity Reaction Status Date / Time No Known Allergies Allergy Verified 06/01/21 17:06 Review of Systems ROS Statement: Those systems with pertinent positive or pertinent negative responses have been documented in the HPI. ROS Other: All systems not noted in ROS Statement are negative. Past Medical History Past Medical History: Asthma, Diabetes Mellitus, Hyperlipidemia, Hypertension, Skin Disorder Additional Past Medical History / Comment(s): hx heart murmer, kidney stones, umbilical hernia, History of Any Multi-Drug Resistant Organisms: None Reported Past Surgical History: Orthopedic Surgery Additional Past Surgical History / Comment(s): rt knee surgery, mole removed from rt upper chest, rt shoulder-rotator cuff Past Anesthesia/Blood Transfusion Reactions: No Reported Reaction Past Psychological History: Depression Smoking Status: Never smoker Past Alcohol Use History: None Reported - Past Family History Sister(s) Family Medical History: Deep Vein Thrombosis (DVT) General Exam - General Exam Comments Initial Comments: GENERAL: Patient is well-developed and well-nourished. Patient is nontoxic and in no acu te distress. HEAD: Atraumatic, normocephalic. EYES: Pupils equal round and reactive to light, extraocular movements intact, sclera anicteric, conjunctiva are normal. Eyelids were unremarkable. ENT: TMs normal, nares patent, oropharynx clear without exudates. Moist mucous mem branes. NECK: Normal range of motion, supple without lymphadenopathy or JVD. LUNGS: Unlabored respirations. Breath sounds clear to auscultation bilaterally and equal. No wheezes rales or rhonchi. HEART: Regular rate and rhythm without murmurs, rubs or gallops. ABDOMEN: Soft, nontender, normoactive bowel sounds. No guarding, no rebound. No masses appreciated. Patient has some mild left flank pain. : Deferred MUSCULOSKELETAL: Normal extremities with adequate strength and normal range of motion, no pitting or edema. No clubbing or cyanosis. NEUROLOGICAL: Patient is alert and oriented x 3. Normal speech, normal gait. PSYCH: Normal mood, normal affect. SKIN: Warm, Dry, normal turgor, no rashes or lesions noted. Limitations: no limitations Course Vital Signs 06/01/21 12:33 Temperature 98.3 F Pulse Rate 72 Respiratory 18 Rate Blood Pressure 151/78 O2 Sat by Pulse 97 Oximetry Medical Decision Making - Medical Decision Making Patient is a 71-year-old male here with left flank pain started suddenly today. He has long history of kidney stones, sees Dr. Arevalo. Had an appt. today at 4p m, but came here. Secondary to severe pain. He denies some mild hematuria today. His vitals are stable, afebrile. Labs showing a very slight white count 11.6, creatinine is 2.04, BUN is 34, this is not far off from his baseline. Urinalysis shows a large amount of blood, rare bacteria. CT shows an obstructing 0.6 cm distal left UVJ junction stone, there are some adjacent stones as well. Moderate left hydronephrosis, moderate left hydroureter, perinephric stranding. Discussed case with Dr. Larkin who is okay with patient going home and f/u with Irina. She was given fluids, Toradol he's been resting currently. Currently he is pain-free. He is agreeable to this plan of care and patient stable for discharge. Return parameters were discussed with him and he verbalized understanding. Case discussed with Dr. Pisano. - Lab Data Result diagrams: 06/01/21 14:41 06/01/21 14:41 Lab Results 06/01/21 06/01/21 06/01/21 Range/Units 14:41 14:41 14:41 WBC 11.6 H (3.8-10.6) k/uL RBC 3.84 L (4.30-5.90) m/uL Hgb 12.2 L (13.0-17.5) gm/dL Hct 36.1 L (39.0-53.0) % MCV 94.1 (80.0-100.0) fL MCH 31.8 (25.0-35.0) pg MCHC 33.8 (31.0-37.0) g/dL RDW 12.7 (11.5-15.5) % Plt Count 208 (150-450) k/uL MPV 7.3 Neutrophils % 81 % Lymphocytes % 11 % Monocytes % 5 % Eosinophils % 1 % Basophils % 0 % Neutrophils # 9.4 H (1.3-7.7) k/uL Lymphocytes # 1.3 (1.0-4.8) k/uL Monocytes # 0.6 (0-1.0) k/uL Eosinophils # 0.2 (0-0.7) k/uL Basophils # 0.0 (0-0.2) k/uL Sodium 139 (137-145) mmol/L Potassium 4.4 (3.5-5.1) mmol/L Chloride 105 (98-107) mmol/L Carbon Dioxide 24 (22-30) mmol/L Anion Gap 10 mmol/L BUN 34 H (9-20) mg/dL Creatinine 2.04 H (0.66-1.25) mg/dL Est GFR (CKD-EPI)AfAm 37 (>60 ml/min/1.73 sqM) Est GFR (CKD-EPI)NonAf 32 (>60 ml/min/1.73 sqM) Glucose 160 H (74-99) mg/dL Calcium 10.0 (8.4-10.2) mg/dL Total Bilirubin 0.8 (0.2-1.3) mg/dL AST 30 (17-59) U/L ALT 17 (4-49) U/L Alkaline Phosphatase 42 (38-126) U/L Total Protein 7.0 (6.3-8.2) g/dL Albumin 4.6 (3.5-5.0) g/dL Urine Color Yellow Urine Appearance Turbid (Clear) Urine pH 5.0 (5.0-8.0) Ur Specific [place] 1.021 (1.001-1.035) Urine Protein 1+ H (Negative) Urine Glucose (UA) Trace H (Negative) Urine Ketones Negative (Negative) Urine Blood Large H (Negative) Urine Nitrite Negative (Negative) Urine Bilirubin Negative (Negative) Urine Urobilinogen <2.0 (<2.0) mg/dL Ur Leukocyte Esterase Negative (Negative) Urine RBC >182 H (0-5) /hpf Urine WBC 13 H (0-5) /hpf Urine Bacteria Rare H (None) /hpf Urine Mucus Rare H (None) /hpf Urine Yeast (Budding) Few H (None) /hpf Disposition Clinical Impression: Kidney stone on left side Disposition: HOME SELF-CARE Condition: Stable Instructions (If sedation given, give patient instructions): Kidney Stones (ED) Additional Instructions: Please return to the Emergency Department if symptoms worsen or any other concerns. Use medications as needed for pain and nausea. Please follow-up with urology. Prescriptions: Tamsulosin [Flomax] 0.4 mg PO DAILY #7 cap Ketorolac [Toradol] 10 mg PO Q8HR #15 tab Ondansetron Odt [Zofran Odt] 4 mg PO Q8HR PRN #10 tab PRN Reason: Nausea Is patient prescribed a controlled substance at d/c from ED?: No Referrals: Kasia Rico MD [Primary Care Provider] - 1-2 days Vincent Arevalo MD [Family Provider] - 1-2 days Time of Disposition: 16:57
[2021-06-01 15:17] LABS: Basophils % (A) 0 %; Eosinophils # (A) 0.2 k/uL (0-0.7); Eosinophils % (A) 1 %; HCT 36.1 % (39.0-53.0); HGB 12.2 gm/dL (13.0-17.5); Lymphocytes # (A) 1.3 k/uL (1.0-4.8); Lymphocytes % (A) 11 %; MCH 31.8 pg (25.0-35.0); MCHC 33.8 g/dL (31.0-37.0); MCV 94.1 fL (80.0-100.0); Mean Platelet Volume 7.3; Monocytes # (A) 0.6 k/uL (0-1.0); Monocytes % (A) 5 %; Neutrophils # (A) 9.4 k/uL (1.3-7.7); Neutrophils % (A) 81 %; Platelet Count 208 k/uL (150-450); RBC 3.84 m/uL (4.30-5.90); RDW 12.7 % (11.5-15.5); WBC 11.6 k/uL (3.8-10.6)
[2021-06-01 15:19] LABS: Albumin 4.6 g/dL (3.5-5.0); Potassium 4.4 mmol/L (3.5-5.1); Total Bilirubin 0.8 mg/dL (0.2-1.3)
--- NOTE | 2021-06-01 15:24 | CT ---
EXAMINATION TYPE: CT abdomen pelvis wo con DATE OF EXAM: 06/01/2021 COMPARISON: 04/24/2015 INDICATION: Lt flank pain DLP: 727.7 mGycm, Automated exposure control for dose reduction was used. CONTRAST: 0 mL of Isovue 300. Study performed without Oral Contrast TECHNIQUE: Axial images were obtained from above the diaphragm to the pubic rami in the axial plane a t 5 mm thick sections. Reconstructed images are reviewed on the computer in the coronal plane. FINDINGS: Limited CT sections are obtained the lung bases. The lung bases are clear. CT ABDOMEN: Liver: Normal Spleen: Normal Pancreas: Normal Adrenal glands: The adrenal glands are normal. Gallbladder: Normal Kidneys: No masses are evident. There is a 0.6 cm calcification in the left ureterovesical junction. Just superior to this there appear to be 2 additional punctate calcifications may be additional tiny stones present. Moderate left hydroureter is present. Some mild periureteral inflammatory changes ar e present. Perinephric stranding is present. There are multiple calcifications within the left kidney . Within the anterior lateral left kidney there is a 0.4 cm mid renal stone. A 0.3 similar calcificat ions in the posterior left mid kidney. Punctate calcifications are in the superior pole. Moderate lef t hydronephrosis is present. Perinephric stranding is present. There is a 3.3 cm cyst measuring 12 [place] units anterior mid left kidney. Nonobstructing punctate renal stones are present within the right kidney the largest renal stone is at the mid to inferior pole measuring 0.5 cm without obstruct ion. No hydroureter is present on the right. Aorta: Vascular calcification is within the aorta. Inferior vena cava: Normal. CT PELVIS: Loops of bowel within the abdomen and pelvis are normal. There are scattered diverticuli within the s igmoid colon. There are loops of bowel which are incompletely distended or lack oral contrast limi ting their evaluation. Appendix: Normal as visualized. Urinary bladder: Normal. Genitourinary structures: Prostate is slightly prominent Osseous structures: No suspicious lytic or sclerotic lesions. IMPRESSIONS: 1. Obstructing 0.6 cm distal left ureterovesical junction stone there may be 2 [address] melissa. 2. Moderate left hydronephrosis and moderate left hydroureter. Perinephric stranding is noted. 3. Multiple bilateral nonobstructing renal stones. 4. Diverticulosis without diverticulitis.
[2021-06-01 16:35] LABS: Appearance,Urine Turbid (Clear); Bacteria,Urine Rare /hpf; Bilirubin,Urine Negative (Negative); Blood,Urine Large (Negative); Budding Yeast,Urine Few /hpf; Color,Urine Yellow; Glucose,Urine (UA) Trace (Negative); Ketones,Urine Negative (Negative); Leukocyte Esterase,Urine Negative (Negative); Mucus,Urine Rare /hpf; Nitrite,Urine Negative (Negative); Protein,Urine 1+ (Negative); RBC,Urine >182 /hpf (0-5); Specific Gravity,Urine 1.021 (1.001-1.035); Urobilinogen,Urine <2.0 mg/dL (<2.0); WBC,Urine 13 /hpf (0-5)
[2021-06-01 17:42] VITALS: BP 130/73; TEMP 97.9
== END 2021-06-01 17:17 | disposition home or self-care (01) ==
LOC: EC 12:09
DX: N20.0 Calculus of kidney (principal); I10 Essential (primary) hypertension; E11.9 Type 2 diabetes mellitus without complications; J45.909 Unspecified asthma, uncomplicated; E78.5 Hyperlipidemia, unspecified; F32.9 Major depressive disorder, single episode, unspecified; Z79.899 Other long term (current) drug therapy
CPT/HCPCS: 99284; 96374; 96361; 36415; 80053; 85025; 81001; 87086; 74176; J1885

== ENCOUNTER 2021-06-08 06:52 | Inpatient (IN) | payer MEDICARE ==
[2021-06-08] MEDS ORDERED: SODIUM CHLORIDE 0.9% 1,000 ML IV STA (07:27)
[2021-06-08] MEDS ORDERED: ONDANSETRON 4 MG/2 ML VIAL IVP STA ×2 (07:27→09:21)
[2021-06-08 07:43] LABS: Glucose,Whole Blood 121 mg/dL (75-99)
--- NOTE | 2021-06-08 08:21 | ED ---
General Adult HPI - General Chief complaint: Nausea/Vomiting/Diarrhea Stated complaint: Vomiting, kidney stone Time Seen by Provider: 06/08/21 07:05 Source: patient, RN notes reviewed, old records reviewed Mode of arrival: ambulatory Limitations: no limitations - History of Present Illness Initial comments: 71-year-old male presenting with generalized weakness fatigue, nausea vomiting. The majority of his symptoms have been present for several months. He has not been doing well since a diagnosis of coronavirus in the spring. He has been dealing with kidney stones following with urology. He states he's had increased nausea vomiting and has not urinated in the past 24 hours. - Related Data Home Medications Medication Instructions Recorded Confirmed lisinopriL [Zestril] 10 mg PO QAM 08/12/16 06/08/21 Escitalopram Oxalate [Lexapro] 30 mg PO DAILY 09/19/18 06/08/21 Multivitamins, Thera [Multivitamin 1 tab PO DAILY 09/19/18 06/08/21 (formulary)] Gabapentin [Neurontin] 400 mg PO TID 06/12/20 06/08/21 Lovastatin [Mevacor] 40 mg PO DAILY 06/12/20 06/08/21 metFORMIN HCL ER [Glucophage XR] 1,000 mg PO BID 06/01/21 06/08/21 Semaglutide [Ozempic] 0.5 mg SQ Q7D 06/08/21 06/08/21 Previous Rx's Medication Instructions Recorded Ketorolac [Toradol] 10 mg PO Q8HR #15 tab 06/01/21 Ondansetron Odt [Zofran Odt] 4 mg PO Q8HR PRN #10 tab 06/01/21 Tamsulosin [Flomax] 0.4 mg PO DAILY #7 cap 06/01/21 Allergies Allergy/AdvReac Type Severity Reaction Status Date / Time No Known Allergies Allergy Verified 06/08/21 08:29 Review of Systems ROS Statement: Those systems with pertinent positive or pertinent negative responses have been documented in the HPI. ROS Other: All systems not noted in ROS Statement are negative. Past Medical History Past Medical History: Asthma, Diabetes Mellitus, Hyperlipidemia, Hypertension, Skin Disorder Additional Past Medical History / Comment(s): hx heart murmer, kidney stones, umbilical hernia, History of Any Multi-Drug Resistant Organisms: None Reported Past Surgical History: Orthopedic Surgery Additional Past Surgical History / Comment(s): rt knee surgery, mole removed from rt upper chest, rt shoulder-rotator cuff Past Anesthesia/Blood Transfusion Reactions: No Reported Reaction Past Psychological History: Depression Smoking Status: Never smoker Past Alcohol Use History: None Reported Past Drug Use History: None Reported - Past Family History Sister(s) Family Medical History: Deep Vein Thrombosis (DVT) General Exam Limitations: no limitations General appearance: alert, in no apparent distress Head exam: Present: atraumatic, normocephalic Eye exam: Present: normal appearance, PERRL ENT exam: Present: mucous membranes dry Respiratory exam: Present: respiratory distress (Patient is tachypneic). Absent: wheezes, rales, rhonchi Cardiovascular Exam: Present: regular rate, normal rhythm GI/Abdominal exam: Present: soft. Absent: distended, tenderness, guarding Extremities exam: Present: normal inspection, normal capillary refill. Absent: pedal edema, calf tenderness Neurological exam: Present: alert, oriented X3, CN II-XII intact Psychiatric exam: Present: normal affect, normal mood Skin exam: Present: warm, dry, intact. Absent: cyanosis, diaphoretic Course Vital Signs 06/08/21 06/08/21 06/08/21 06:58 09:43 10:32 Temperature 97 F L Pulse Rate 79 92 87 Respiratory 20 18 22 Rate Blood Pressure 114/54 147/68 O2 Sat by Pulse 99 98 Oximetry - Reevaluation(s) Reevaluation #1: 06/08/21 10:[address] Nice, Dr. Arevalo, and Dr. Mayberry Patient will be kept nothing by mouth for possible renal stents. I discussed case with nephrology recommends a total of 4 Amps of sodium bicarb IV push followed by 150 mL an hour of 150 mEq of sodium bicarb infusion. EKG Findings - EKG Comments: EKG Findings:: EKG: Normal sinus rhythm with sinus arrhythmia, prolonged QT, rate of 95, WI interval 160, QRS duration 84, QTC 482, no ST segment elevation Medical Decision Making - Medical Decision Making 71-year-old male presenting with nausea vomiting, decreased urine output. Profound dehydration. IV hydration is initiated, laboratory testing reveals significant abnormalities. Patient found to be in acute renal failure, lactic acid is extremely high. He has a potassium of 6.7. Profound lab abnormalities. I discussed case with the admitting physician, the building components designer, the intensive care physician and the urologist. Patient will be kept nothing by mouth for possible renal stents. Danielle catheter will be inserted. He will receive continuous IV hydration with sodium bicarb infusion for his acidosis. Repeat electrolytes and lactic acid are pending. - Lab Data Result diagrams: 06/08/21 08:34 06/08/21 08:34 Lab Results 06/08/21 06/08/21 06/08/21 Range/Units 07:40 08:34 08:34 WBC 15.8 H (3.8-10.6) k/uL RBC 3.56 L (4.30-5.90) m/uL Hgb 11.5 L (13.0-17.5) gm/dL Hct 37.2 L (39.0-53.0) % MCV 104.4 H D (80.0-100.0) fL MCH 32.4 (25.0-35.0) pg MCHC 31.0 (31.0-37.0) g/dL RDW 12.1 (11.5-15.5) % Plt Count 219 (150-450) k/uL MPV 8.4 Neutrophils % 89 % Lymphocytes % 7 % Monocytes % 4 % Eosinophils % 0 % Basophils % 0 % Neutrophils # 14.1 H (1.3-7.7) k/uL Lymphocytes # 1.0 (1.0-4.8) k/uL Monocytes # 0.6 (0-1.0) k/uL Eosinophils # 0.0 (0-0.7) k/uL Basophils # 0.1 (0-0.2) k/uL Hypochromasia Slight Macrocytosis Slight PT 10.5 (9.0-12.0) sec INR 1.0 (<1.2) APTT 23.2 (22.0-30.0) sec Sodium (137-145) mmol/L Potassium (3.5-5.1) mmol/L Chloride (98-107) mmol/L Carbon Dioxide (22-30) mmol/L Anion Gap mmol/L BUN (9-20) mg/dL Creatinine (0.66-1.25) mg/dL Est GFR (CKD-EPI)AfAm (>60 ml/min/1.73 sqM) Est GFR (CKD-EPI)NonAf (>60 ml/min/1.73 sqM) Glucose (74-99) mg/dL POC Glucose (mg/dL) 121 H (75-99) mg/dL POC Glu [employer] Supervisor ID [place] Plasma Lactic Acid [place] (0.7-2.0) mmol/L Calcium (8.4-10.2) mg/dL Total Bilirubin (0.2-1.3) mg/dL AST (17-59) U/L ALT (4-49) U/L Alkaline Phosphatase (38-126) U/L Troponin I (0.000-0.034) ng/mL Total Protein (6.3-8.2) g/dL Albumin (3.5-5.0) g/dL Amylase (30-110) U/L Lipase (23-300) U/L 06/08/21 06/08/21 06/08/21 Range/Units 08:34 08:34 08:34 WBC (3.8-10.6) k/uL RBC (4.30-5.90) m/uL Hgb (13.0-17.5) gm/dL Hct (39.0-53.0) % MCV (80.0-100.0) fL MCH (25.0-35.0) pg MCHC (31.0-37.0) g/dL RDW (11.5-15.5) % Plt Count (150-450) k/uL MPV Neutrophils % % Lymphocytes % % Monocytes % % Eosinophils % % Basophils % % Neutrophils # (1.3-7.7) k/uL Lymphocytes # (1.0-4.8) k/uL Monocytes # (0-1.0) k/uL Eosinophils # (0-0.7) k/uL Basophils # (0-0.2) k/uL Hypochromasia Macrocytosis PT (9.0-12.0) sec INR (<1.2) APTT (22.0-30.0) sec Sodium 144 (137-145) mmol/L Potassium 6.7 H* (3.5-5.1) mmol/L Chloride 100 (98-107) mmol/L Carbon Dioxide 6 L* (22-30) mmol/L Anion Gap 38 mmol/L BUN 73 H (9-20) mg/dL Creatinine 11.61 H* (0.66-1.25) mg/dL Est GFR (CKD-EPI)AfAm 5 (>60 ml/min/1.73 sqM) Est GFR (CKD-EPI)NonAf 4 (>60 ml/min/1.73 sqM) Glucose 103 H (74-99) mg/dL POC Glucose (mg/dL) (75-99) mg/dL POC Glu [employer] Supervisor ID Plasma Lactic Acid [place] 14.6 H* (0.7-2.0) mmol/L Calcium 9.4 (8.4-10.2) mg/dL Total Bilirubin 0.5 (0.2-1.3) mg/dL AST 39 (17-59) U/L ALT 25 (4-49) U/L Alkaline Phosphatase 35 L (38-126) U/L Troponin I 0.013 (0.000-0.034) ng/mL Total Protein 6.6 (6.3-8.2) g/dL Albumin 4.4 (3.5-5.0) g/dL Amylase 142 H (30-110) U/L Lipase 281 (23-300) U/L Critical Care Time Critical Care Time: Yes Total Critical Care Time: 35 Disposition Clinical Impression: Dehydration, Lactic acidosis, Acute renal failure Disposition: ADMITTED IP TO THIS [facility] Condition: Serious Is patient prescribed a controlled substance at d/c from ED?: No Referrals: Kasia Rico MD [Primary Care Provider] - 1-2 days Decision to Admit Reason: Admit from EC Decision Date: 06/08/21 Decision Time: 10:54
[2021-06-08 09:15] LABS: Albumin 4.4 g/dL (3.5-5.0); Calcium 9.4 mg/dL (8.4-10.2); Total Bilirubin 0.5 mg/dL (0.2-1.3); Total Protein 6.6 g/dL (6.3-8.2)
[2021-06-08] MEDS ORDERED: HYDROmorphone 0.5 MG/0.5 ML SYRINGE IVP STA (09:20)
--- NOTE | 2021-06-08 09:23 | CT ---
EXAMINATION TYPE: CT abdomen pelvis wo con DATE OF EXAM: 06/08/2021 HISTORY: Kidney stones/anuric CT DLP: 776.6 mGycm. Automated Exposure Control for Dose Reduction was Utilized. TECHNIQUE: CT scan of the abdomen and pelvis is performed without oral or IV contrast. COMPARISON: CT abdomen and pelvis one week ago FINDINGS: Within the limitations of a non-contrast study, the following observations are made. LUNG BASES: Calcification at level of aortic valve redemonstrated. LIVER/GB: Visualized liver heterogeneous hypodense relative to spleen consistent with mild diffuse fa tty infiltration. PANCREAS: No significant abnormality is seen. SPLEEN: No significant abnormality is seen. ADRENALS: No significant abnormality is seen. KIDNEYS: Stable 2 mm nonobstructing calculus right kidney upper pole level coronal image 59. Interval passage of lower pole right renal calculi into the bladder with mild right-sided hydronephrosis. New mild fat stranding surrounding the right kidney Approximately 5-6 small scattered calculi throughout the left kidney redemonstrated. There are now 2- 3 adjacent calculi in distal left ureter causing persistent moderate left-sided hydronephrosis measur ing up to 6 mm in size. There is new dependent 5 mm calculus in urinary bladder axial image 146. BOWEL: Scattered colonic diverticula. No suspicious small or large bowel dilatation. Suboptimal evalu ation without enteric contrast. GENITAL ORGANS: No gross abnormality seen. LYMPH NODES: No greater than 1cm abdominal or pelvic lymph nodes are appreciated. OSSEOUS STRUCTURES: Transitional-type vertebra at lumbosacral junction redemonstrated. OTHER: No significant additional abnormality is seen. IMPRESSION: New mild right-sided hydronephrosis and right perinephric fat stranding with interval pas shemar of small lower pole right renal calculi into the bladder. Persistent moderate left-sided hydrone phrosis due to obstructing distal ureter calculi.
[2021-06-08 09:24] LABS: Basophils # (A) 0.1 k/uL (0-0.2); Basophils % (A) 0 %; Eosinophils % (A) 0 %; HCT 37.2 % (39.0-53.0); HGB 11.5 gm/dL (13.0-17.5); Hypochromasia Slight; Lymphocytes % (A) 7 %; MCH 32.4 pg (25.0-35.0); Macrocytosis Slight; Mean Platelet Volume 8.4; Monocytes # (A) 0.6 k/uL (0-1.0); Monocytes % (A) 4 %; Neutrophils # (A) 14.1 k/uL (1.3-7.7); Neutrophils % (A) 89 %; Platelet Count 219 k/uL (150-450); RBC 3.56 m/uL (4.30-5.90); RDW 12.1 % (11.5-15.5); WBC 15.8 k/uL (3.8-10.6)
[2021-06-08] MEDS ORDERED: SODIUM CHLORIDE 0.9% 1,000 ML IV ONE ×2 (09:28→13:30)
[2021-06-08 09:29] LABS: Partial Thromboplastin Time 23.2 sec (22.0-30.0); Potassium 6.7 mmol/L (3.5-5.1); Prothrombin Time 10.5 sec (9.0-12.0)
[2021-06-08 09:41] LABS: MCV 104.4 fL (80.0-100.0)
[2021-06-08] MEDS ORDERED: SODIUM CHLORIDE 0.9% 1,000 ML IV SCH (09:45)
[2021-06-08] MEDS ORDERED: DEXTROSE 50% SYRINGE 50 ML IVP ONE (10:03)
[2021-06-08] MEDS ORDERED: INSULIN REGULAR 100 UNIT/ML VIAL (IV) IV ONE ×2 (10:03→21:45)
[2021-06-08] MEDS ORDERED: SODIUM BICARB 8.4% 50 ML SYR (1 MEQ/ML) IV ONE (10:03)
[2021-06-08] MEDS ORDERED: ALBUTEROL NEB (CONC) 2.5 MG/0.5 ML INHALATION ONE (10:03)
[2021-06-08] MEDS ORDERED: CALCIUM GLUCONATE 1 GM in SODIUM CHLORIDE 0.9% 100 ML IVPB ONE (10:30)
[2021-06-08] MEDS ORDERED: HYDROmorphone 1 MG/ML 1 ML SYRINGE IVP PRN (10:34)
[2021-06-08] MEDS ORDERED: HYDROmorphone 0.5 MG/0.5 ML SYRINGE IVP PRN (10:45)
[2021-06-08] MEDS ORDERED: NALOXONE 0.4 MG/ML 1 ML VIAL IV PRN (10:45)
[2021-06-08] MEDS ORDERED: cefTRIAXone IN SWFI 1,000 MG/10 ML SYRINGE IVP STA (10:45)
[2021-06-08] MEDS ORDERED: ACETAMINOPHEN TAB 325 MG TAB PO PRN (10:45)
[2021-06-08] MEDS ORDERED: SODIUM BICARB 8.4% 50 ML SYR (1 MEQ/ML) IV STA ×2 (10:51→19:47)
[2021-06-08 12:11] LABS: Blood Urea Nitrogen 72 mg/dL (9-20); Calcium 8.9 mg/dL (8.4-10.2); Potassium 5.1 mmol/L (3.5-5.1); Sodium 150 mmol/L (137-145)
[2021-06-08 12:17] LABS: African American GFR (CKD) 5 (>60 ml/min/1.73 sqM); Chloride 101 mmol/L (98-107); Glucose 197 mg/dL (74-99); Non-African American GFR(CKD) 4 (>60 ml/min/1.73 sqM)
--- NOTE | 2021-06-08 12:38 | P.GSCN ---
History of Present Illness Consult date: 06/08/21 Reason for Consult: Bilateral hydronephrosis History of present illness: This is a 71-year-old male with history of recurrent kidney stones. He's admitted to the hospital with renal failure, for the past 2-3 days been having worsening fatigue, nausea and vomiting, and bilateral flank pain. On presentation he underwent a CT abdomen and pelvis that showed evidence of bilateral hydronephrosis, with evidence of a left-sided distal ureteral calculi, but no stones were seen along the right side of the ureter. On presentation his creatinine was 11.6. His lactate is 14.6. He's been afebrile, denies any dysuria or gross hematuria. He's been anuric, and has not been able to provide him urine sample Review of Systems - Constitutional Reports fatigue, Reports weakness, Denies chills, Denies fever - EENT Ears, nose, mouth and throat: Denies dysphagia - Cardiovascular Denies chest pain, Denies shortness of breath - Respiratory Reports dyspnea - Gastrointestinal Reports nausea, Reports vomiting - Genitourinary Reports flank pain - Integumentary Denies rash, Denies unusual bruising - Neurological Denies headaches, Denies syncope Past Medical History Past Medical History: Asthma, Diabetes Mellitus, Hyperlipidemia, Hypertension, Skin Disorder Additional Past Medical History / Comment(s): hx heart murmer, kidney stones, u mbilical hernia, History of Any Multi-Drug Resistant Organisms: None Reported Past Surgical History: Orthopedic Surgery Additional Past Surgical History / Comment(s): rt knee surgery, mole removed from rt upper chest, rt shoulder-rotator cuff Past Anesthesia/Blood Transfusion Reactions: No Reported Reaction Past Psychological History: Depression Smoking Status: Never smoker Past Alcohol Use History: None Reported Past Drug Use History: None Reported - Past Family History Sister(s) Family Medical History: Deep Vein Thrombosis (DVT) Medications and Allergies Home Medications Medication Instructions Recorded Confirmed Type lisinopriL [Zestril] 10 mg PO QAM 08/12/16 06/08/21 History Escitalopram Oxalate [Lexapro] 30 mg PO DAILY 09/19/18 06/08/21 History Multivitamins, Thera [Multivitamin 1 tab PO DAILY 09/19/18 06/08/21 History (formulary)] Gabapentin [Neurontin] 400 mg PO TID 06/12/20 06/08/21 History Lovastatin [Mevacor] 40 mg PO DAILY 06/12/20 06/08/21 History Ketorolac [Toradol] 10 mg PO Q8HR #15 tab 06/01/21 06/08/21 Rx Ondansetron Odt [Zofran Odt] 4 mg PO Q8HR PRN #10 tab 06/01/21 06/08/21 Rx Tamsulosin [Flomax] 0.4 mg PO DAILY #7 cap 06/01/21 06/08/21 Rx metFORMIN HCL ER [Glucophage XR] 1,000 mg PO BID 06/01/21 06/08/21 History Semaglutide [Ozempic] 0.5 mg SQ Q7D 06/08/21 06/08/21 History Allergies Allergy/AdvReac Type Severity Reaction Status Date / Time No Known Allergies Allergy Verified 06/08/21 08:29 Surgical - Exam Vital Signs Temp Pulse Resp BP Pulse Ox 97 F L 79 20 114/54 99 06/08/21 06:58 06/08/21 06:58 06/08/21 06:58 06/08/21 06:58 06/08/21 06:58 - General severe distress, moderate pain - Eyes PERRL, normal ocular movement - ENT normal nares, normal mucosa - Respiratory Labored breathing - Abdomen Abdomen: soft, non tender - Psychiatric oriented to time, oriented to person, oriented to place Results - Labs 06/08/21 08:34 06/08/21 11:45 Abnormal Lab Results - Last 24 Hours (Table) 06/08/21 06/08/21 06/08/21 Range/Units 07:40 08:34 08:34 WBC 15.8 H (3.8-10.6) k/uL RBC 3.56 L (4.30-5.90) m/uL Hgb 11.5 L (13.0-17.5) gm/dL Hct 37.2 L (39.0-53.0) % MCV 104.4 H D (80.0-100.0) fL Neutrophils # 14.1 H (1.3-7.7) k/uL Sodium (137-145) mmol/L Potassium 6.7 H* (3.5-5.1) mmol/L Carbon Dioxide 6 L* (22-30) mmol/L BUN 73 H (9-20) mg/dL Creatinine 11.61 H* (0.66-1.25) mg/dL Glucose 103 H (74-99) mg/dL POC Glucose (mg/dL) 121 H (75-99) mg/dL Plasma Lactic Acid Collin (0.7-2.0) mmol/L Alkaline Phosphatase 35 L (38-126) U/L Amylase 142 H (30-110) U/L 06/08/21 06/08/21 Range/Units 08:34 11:45 WBC (3.8-10.6) k/uL RBC (4.30-5.90) m/uL Hgb (13.0-17.5) gm/dL Hct (39.0-53.0) % MCV (80.0-100.0) fL Neutrophils # (1.3-7.7) k/uL Sodium 150 H (137-145) mmol/L Potassium (3.5-5.1) mmol/L Carbon Dioxide (22-30) mmol/L BUN 72 H (9-20) mg/dL Creatinine (0.66-1.25) mg/dL Glucose (74-99) mg/dL POC Glucose (mg/dL) (75-99) mg/dL Plasma Lactic Acid Collin 14.6 H* (0.7-2.0) mmol/L Alkaline Phosphatase (38-126) U/L Amylase (30-110) U/L Diabetes panel 06/08/21 06/08/21 Range/Units 08:34 11:45 Sodium 144 150 H (137-145) mmol/L Potassium 6.7 H* 5.1 (3.5-5.1) mmol/L Chloride 100 (98-107) mmol/L Carbon Dioxide 6 L* (22-30) mmol/L BUN 73 H 72 H (9-20) mg/dL Creatinine 11.61 H* (0.66-1.25) mg/dL Glucose 103 H (74-99) mg/dL Calcium 9.4 8.9 (8.4-10.2) mg/dL AST 39 (17-59) U/L ALT 25 (4-49) U/L Alkaline Phosphatase 35 L (38-126) U/L Total Protein 6.6 (6.3-8.2) g/dL Albumin 4.4 (3.5-5.0) g/dL Calcium panel 06/08/21 06/08/21 Range/Units 08:34 11:45 Calcium 9.4 8.9 (8.4-10.2) mg/dL Albumin 4.4 (3.5-5.0) g/dL Pituitary panel 06/08/21 06/08/21 Range/Units 08:34 11:45 Sodium 144 150 H (137-145) mmol/L Potassium 6.7 H* 5.1 (3.5-5.1) mmol/L Chloride 100 (98-107) mmol/L Carbon Dioxide 6 L* (22-30) mmol/L BUN 73 H 72 H (9-20) mg/dL Creatinine 11.61 H* (0.66-1.25) mg/dL Glucose 103 H (74-99) mg/dL Calcium 9.4 8.9 (8.4-10.2) mg/dL Adrenal panel 06/08/21 06/08/21 Range/Units 08:34 11:45 Sodium 144 150 H (137-145) mmol/L Potassium 6.7 H* 5.1 (3.5-5.1) mmol/L Chloride 100 (98-107) mmol/L Carbon Dioxide 6 L* (22-30) mmol/L BUN 73 H 72 H (9-20) mg/dL Creatinine 11.61 H* (0.66-1.25) mg/dL Glucose 103 H (74-99) mg/dL Calcium 9.4 8.9 (8.4-10.2) mg/dL Total Bilirubin 0.5 (0.2-1.3) mg/dL AST 39 (17-59) U/L ALT 25 (4-49) U/L Alkaline Phosphatase 35 L (38-126) U/L Total Protein 6.6 (6.3-8.2) g/dL Albumin 4.4 (3.5-5.0) g/dL - Imaging CT scan - abdomen: image reviewed (6 mm left-sided ureteral stone, an additional stone within the bladder. Right-sided hydronephrosis, no ureteral stones appreciated) Assessment and Plan Assessment: 71-year-old male admitted to the hospital with renal failure, creatinine on presentation is 11.6. He is hemodynamically stable, his lactate is 14.6 Discussed given his renal failure , the presence of bilateral hydronephrosis and obstructive left-sided ureteral stone a recommend proceeding with bilateral ureteral stent placement. Discussed this will relieve his renal obstruction from his kidney stone, discussed the right-sided hydronephrosis is consistent with a recently passed stone, but given his renal failure recommend proceeding with stent placement on that side. Discussed the risk and benefit of surgery with him and his in detail -OR for bilateral stent placement
[2021-06-08 12:39] LABS: Carbon Dioxide <5 mmol/L (22-30)
--- NOTE | 2021-06-08 13:19 | XR ---
EXAMINATION TYPE: XR chest 2V DATE OF EXAM: 06/08/2021 COMPARISON: NONE TECHNIQUE: PA and lateral views submitted. HISTORY: Weakness FINDINGS: The lungs are clear and there is no pneumothorax, pleural effusion, or focal pneumonia. Heart size is normal. There is interstitial pattern with atherosclerotic change aorta. Diffuse osteopenia and ar thropathy of the shoulders. No pleural effusion or pneumothorax. Hypertrophic and degenerative change of the spine. IMPRESSION: 1. Correlate for interstitial pneumonitis or mild venous congestion..
[2021-06-08] MEDS ORDERED: ePHEDrine SULFATE/0.9% NACL/PF 50 MG/5 ML SYRINGE IV ONE (13:21)
[2021-06-08] MEDS ORDERED: KETAMINE 10 MG/ML 20 ML VIAL ONE (13:21)
[2021-06-08] MEDS ORDERED: SUCCINYLCHOLINE CHLORIDE 100 MG/5 ML SYR IV ONE (13:21)
[2021-06-08] MEDS ORDERED: LIDOCAINE 1% INJ 10MG/ML (20 ML MDV) ONE (13:21)
[2021-06-08] MEDS ORDERED: PHENYLEPHRINE-0.9% NACL SYG 1,000 MCG/10 ML SYRINGE ONE (13:21)
[2021-06-08] MEDS ORDERED: ETOMIDATE 2 MG/ML 10 ML VIAL ONE (13:21)
[2021-06-08] MEDS ORDERED: ceFAZolin 1,000 MG VIAL IVPB ONE (13:45)
--- NOTE | 2021-06-08 14:05 | P.OP ---
Date of Procedure: 06/08/21 Preoperative Diagnosis: bilateral hydronephrosis Postoperative Diagnosis: Same Procedure(s) Performed: Cystoscopy and bilateral ureteral stent placement Implants: 4.8-Romansh by 26 cm stent bilaterally Anesthesia: DIANA Surgeon: Vincent Arevalo Urine output (ml): 1 Pathology: none sent Condition: stable Disposition: PACU Indications for Procedure: 11-year-old male admitted to the hospital with renal failure, creatinine on presentation is 11.6. He is hemodynamically stable, his lactate is 14.6 Discussed given his renal failure , the presence of bilateral hydronephrosis and obstructive left-sided ureteral stone a recommend proceeding with bilateral ur eteral stent placement. Discussed this will relieve his renal obstruction from his kidney stone, discussed the right-sided hydronephrosis is consistent with a recently passed stone, but given his renal failure recommend proceeding with stent placement on that side. Discussed the risk and benefit of surgery with him and his in detail Description of Procedure: Patient was brought to the operating room, general anesthesia was induced. He was prepped and draped so fashion a placement dorsal lithotomy position. Cystoscopy fitted 21-Romansh sheath was inserted per urethra, attention was then carried to the right ureteral orifice which was intubated sensor wire. Next a ureteral stent was passed over the wire, the proximal curl was visualized on fluoroscopy and the distal curl was visualized and cystoscope. Attention was then carried to the left ureteral orifice, the stone was partially seen in the UVJ. Excellent was able to pass a wire past the stone. Ureter catheter was passed over the wire, cloudy urine was obtained and sent for culture. Next the catheter was removed the wire in place. Next a ureteral stent was passed over the wire, the proximal curl was visualized on fluoroscopy and the distal curl was visualized using the cystoscope. The bladder was emptied and the case. A 16-Romansh Danielle was placed with return of clear urine. Patient was taken to recovery in stable condition
--- NOTE | 2021-06-08 14:13 | P.HPIM ---
History of Present Illness H&P Date: 06/08/21 Chief Complaint: bilateral back/flank pain 71-year-old man with medical history of diabetes, hypertension, hyperlipidemia, multiple recurrent kidney stones present for several days flank pain/back pain. Patient says a few weeks ago he started to experience colicky flank/back pain. The pain got more more severe. He did present to the emergency room for further evaluation of this and was sent home with pain medication after receiving some IV fluids. However, he did not improve at home and was barely able to sit still due to pain, which prompted his return to the emergency room. Until that he has not had any significant by mouth intake since the initiation of the pain, due to also having associated nausea, vomiting with any by mouth intake. Patient goes on to report generalized weakness, pain, shortness of breath. He denies: Fevers, chills, chest pain, palpitations, syncope, presyncope, abdominal pain, diarrhea, constipation, dyschezia, numbness/weakness. In the emergency room patient was afebrile, 114/54, heart rate 79, 99% on room air. Lab work demonstrated leukocytosis to 15.8, hemoglobin of 11.5, platelets of 219. Chemistries are concerning for acute renal failure with hyperkalemia, potassium of 6.7, bicarb of 6, creatinine of 11.6. CT of the abdomen/pelvis and showed bilateral hydronephrosis with likely passed stone on the right side with obstructing stone on the left side. Review of Systems All Systems reviewed and pertinent positives and negatives noted in HPI, all other symptoms are negative Past Medical History Past Medical History: Asthma, Diabetes Mellitus, Hyperlipidemia, Hypertension, Skin Disorder Additional Past Medical History / Comment(s): hx heart murmer, kidney stones, umbilical hernia, History of Any Multi-Drug Resistant Organisms: None Reported Past Surgical History: Orthopedic Surgery Additional Past Surgical History / Comment(s): rt knee surgery, mole removed from rt upper chest, rt shoulder-rotator cuff Past Anesthesia/Blood Transfusion Reactions: No Reported Reaction Past Psychological History: Depression Smoking Status: Never smoker Past Alcohol Use History: None Reported Past Drug Use History: None Reported - Past Family History Sister(s) Family Medical History: Deep Vein Thrombosis (DVT) Medications and Allergies Home Medications Medication Instructions Recorded Confirmed Type lisinopriL [Zestril] 10 mg PO QAM 08/12/16 06/08/21 History Escitalopram Oxalate [Lexapro] 30 mg PO DAILY 09/19/18 06/08/21 History Multivitamins, Thera [Multivitamin 1 tab PO DAILY 09/19/18 06/08/21 History (formulary)] Gabapentin [Neurontin] 400 mg PO TID 06/12/20 06/08/21 History Lovastatin [Mevacor] 40 mg PO DAILY 06/12/20 06/08/21 History Ketorolac [Toradol] 10 mg PO Q8HR #15 tab 06/01/21 06/08/21 Rx Ondansetron Odt [Zofran Odt] 4 mg PO Q8HR PRN #10 tab 06/01/21 06/08/21 Rx Tamsulosin [Flomax] 0.4 mg PO DAILY #7 cap 06/01/21 06/08/21 Rx metFORMIN HCL ER [Glucophage XR] 1,000 mg PO BID 06/01/21 06/08/21 History Semaglutide [Ozempic] 0.5 mg SQ Q7D 06/08/21 06/08/21 History Allergies Allergy/AdvReac Type Severity Reaction Status Date / Time No Known Allergies Allergy Verified 06/08/21 08:29 Physical Exam Osteopathic Statement: *. No significant issues noted on an osteopathic structural exam other than those noted in the History and Physical/Consult. Vitals: Vital Signs Temp Pulse Resp BP Pulse Ox 06/08/21 12:57 74 18 94/40 06/08/21 11:30 91 24 93/34 97 06/08/21 10:44 84 22 06/08/21 10:32 87 22 06/08/21 09:43 92 18 147/68 98 06/08/21 06:58 97 F L 79 20 114/54 99 Intake and Output 06/07/21 06/08/21 06/08/21 22:59 06:59 14:59 Intake Total 300 Output Total 3 Balance 297 Intake: IV 300 Output: Estimated Blood Loss 3 Other: Weight 92.986 kg Gen: awake, alert HEENT: normocephalic, atraumatic, good hearing acuity, moist mucous membranes Resp: good air exchange, breathing comfortably with no accessory muscle use CVS: good distal perfusion x 4, GI: soft, NTTP, ND : no SPT, bilateral CVAT, carey catheter is present MSK: no pitting edema, no clubbing Neuro: non-focal, moving all extremities Psych: cooperative, euthymic mood Results CBC & Chem 7: 06/08/21 08:34 06/08/21 11:45 Labs: Abnormal Lab Results - Last 24 Hours (Table) 06/08/21 06/08/21 06/08/21 Range/Units 07:40 08:34 08:34 WBC 15.8 H (3.8-10.6) k/uL RBC 3.56 L (4.30-5.90) m/uL Hgb 11.5 L (13.0-17.5) gm/dL Hct 37.2 L (39.0-53.0) % MCV 104.4 H D (80.0-100.0) fL Neutrophils # 14.1 H (1.3-7.7) k/uL Sodium (137-145) mmol/L Potassium 6.7 H* (3.5-5.1) mmol/L Carbon Dioxide 6 L* (22-30) mmol/L BUN 73 H (9-20) mg/dL Creatinine 11.61 H* (0.66-1.25) mg/dL Glucose 103 H (74-99) mg/dL POC Glucose (mg/dL) 121 H (75-99) mg/dL Plasma Lactic Acid Collin (0.7-2.0) mmol/L Alkaline Phosphatase 35 L (38-126) U/L Amylase 142 H (30-110) U/L 06/08/21 06/08/21 06/08/21 Range/Units 08:34 11:45 11:45 WBC (3.8-10.6) k/uL RBC (4.30-5.90) m/uL Hgb (13.0-17.5) gm/dL Hct (39.0-53.0) % MCV (80.0-100.0) fL Neutrophils # (1.3-7.7) k/uL Sodium 150 H (137-145) mmol/L Potassium (3.5-5.1) mmol/L Carbon Dioxide <5 L* (22-30) mmol/L BUN 72 H (9-20) mg/dL Creatinine 11.21 H* (0.66-1.25) mg/dL Glucose 197 H (74-99) mg/dL POC Glucose (mg/dL) (75-99) mg/dL Plasma Lactic Acid Collin 14.6 H* >24.0 H* (0.7-2.0) mmol/L Alkaline Phosphatase (38-126) U/L Amylase (30-110) U/L Thrombosis Risk Factor Assmnt - Choose All That Apply Each Factor Represents 1 point: Age 41-60 years Each Risk Factor Represents 2 Points: Age 61-74 years Thrombosis Risk Factor Assessment Total Risk Factor Score: 3 Thrombosis Risk Factor Assessment Level: Moderate Risk Assessment and Plan Assessment: Bilateral hydronephrosis Obstructive nephrolithiasis Post renal Acute kidney injury -Admit inpatient, ICU with Pulm consult -Nephrology consult -Urology consult stat for nephroureteral stent -Pain control: Dilaudid when necessary with MANAGER OF MEDICAL -Stool softener -Nausea control -IV fluids Diabetes Hypertension Hyperlipidemia -Home medications reviewed and reconciled Patient is full code DVT prophylaxis with heparin 3 times a day
--- NOTE | 2021-06-08 14:28 | FL ---
EXAMINATION TYPE: FL guidance operating room DATE OF EXAM: 06/08/2021 HISTORY: Fluoroscopy time Less than 60 seconds of fluoroscopy provided. IMPRESSION: 1. Fluoroscopy time.
[2021-06-08] MEDS ORDERED: propofoL 100 ML IV ONE (14:39)
[2021-06-08 14:42] LABS: Glucose,Whole Blood 209 mg/dL (75-99)
[2021-06-08 15:22] LABS: Appearance,Urine Cloudy (Clear); Bacteria,Urine Rare /hpf; Bilirubin,Urine Negative (Negative); Blood,Urine Moderate (Negative); Budding Yeast,Urine Few /hpf; Color,Urine Yellow; Glucose,Urine (UA) Trace (Negative); Ketones,Urine 1+ (Negative); Leukocyte Esterase,Urine Large (Negative); Mucus,Urine Rare /hpf; Nitrite,Urine Negative (Negative); PH, Urine 5.5 (5.0-8.0); Protein,Urine 2+ (Negative); RBC,Urine >182 /hpf (0-5); Specific Gravity,Urine 1.012 (1.001-1.035); Squamous Epithelial Cell,Urine <1 /hpf (0-4); Urobilinogen,Urine <2.0 mg/dL (<2.0); WBC,Urine 95 /hpf (0-5)
[2021-06-08] MEDS: DEXTROSE 5% IN WATER 1,000 ML with SODIUM BICARB (1 MEQ/ML) 150 ML IV SCH ×2 (15:30→21:39)
[2021-06-08] MEDS ORDERED: SODIUM CHLORIDE 0.9% 3,000 ML IV ONE (16:16)
[2021-06-08] MEDS: NOREPINEPHRINE 4 MG in SODIUM CHLORIDE 0.9% 250 ML IV SCH ×2 (16:45→21:30)
[2021-06-08 18:51] LABS: Glucose,Whole Blood 261 mg/dL (75-99)
[2021-06-08] MEDS ORDERED: NOREPINEPHRIN 4 MG-0.9% NS PMX 4 MG/250 ML ML IV ONE (19:03)
[2021-06-08 19:11] LABS: African American GFR (CKD) 5 (>60 ml/min/1.73 sqM); Blood Urea Nitrogen 72 mg/dL (9-20); Calcium 7.9 mg/dL (8.4-10.2); Chloride 102 mmol/L (98-107); Glucose 249 mg/dL (74-99); Magnesium 2.1 mg/dL (1.6-2.3); Non-African American GFR(CKD) 4 (>60 ml/min/1.73 sqM); Potassium 5.9 mmol/L (3.5-5.1); Sodium 146 mmol/L (137-145)
[2021-06-08 19:21] LABS: Carbon Dioxide <5 mmol/L (22-30); Phosphorus 13.2 mg/dL (2.5-4.5)
[2021-06-08] MEDS ORDERED: INSULIN REGULAR 100 UNIT/ML VIAL (IM/SQ) SQ ONE (19:45)
[2021-06-08] MEDS ORDERED: DEXTROSE 50% SYRINGE 50 ML IVP STA (19:45)
[2021-06-08] MEDS: INSULIN ASPART (NovoLOG) 100 UNIT/ML VIAL SQ SCH (23:01)
[2021-06-08 23:10] LABS: Glucose,Whole Blood 374 mg/dL (75-99)
[2021-06-09 01:12] LABS: Albumin 3.7 g/dL (3.5-5.0); Calcium 7.6 mg/dL (8.4-10.2); Magnesium 1.8 mg/dL (1.6-2.3); Total Bilirubin 0.5 mg/dL (0.2-1.3); Total Protein 5.4 g/dL (6.3-8.2)
[2021-06-09 01:29] LABS: HCT 36.9 % (39.0-53.0); Hypochromasia Marked; MCH 32.7 pg (25.0-35.0); MCHC 29.8 g/dL (31.0-37.0); Macrocytosis Marked; Mean Platelet Volume 9.1; Platelet Count 283 k/uL (150-450); RBC 3.36 m/uL (4.30-5.90); RDW 12.9 % (11.5-15.5); WBC 30.5 k/uL (3.8-10.6)
[2021-06-09 01:40] LABS: MCV 109.7 fL (80.0-100.0)
[2021-06-09] MEDS: NOREPINEPHRINE 4 MG in SODIUM CHLORIDE 0.9% 250 ML IV SCH ×2 (02:13→02:55)
[2021-06-09 02:20] LABS: Phosphorus 11.8 mg/dL (2.5-4.5); Potassium 6.2 mmol/L (3.5-5.1)
[2021-06-09 02:37] LABS: Band Neutrophils % 21 %; Eosinophils # (M) 0.31 k/uL (0-0.7); Lymphocytes # (M) 3.66 k/uL (1.0-4.8); Metamyelocytes # (M) 0.61 k/uL (0); Metamyelocytes % 2 %; Monocytes # (M) 0.92 k/uL (0-1.0); Neutrophils % (M) 62 %; Nucleated Red Blood Cells 0 /100 WBC (0-0); Total Cells Counted 200
[2021-06-09 02:39] LABS: Anisocytosis (M) Present; Poikilocytosis (M) Present
[2021-06-09] MEDS ORDERED: SODIUM BICARB 8.4% 50 ML SYR (1 MEQ/ML) IV ONE ×2 (02:40→06:34)
[2021-06-09] MEDS ORDERED: INSULIN REGULAR 100 UNIT/ML VIAL (IV) IV ONE (02:40)
[2021-06-09] MEDS ORDERED: DEXTROSE 50% SYRINGE 50 ML IVP ONE (02:40)
[2021-06-09] MEDS: DEXTROSE 5% IN WATER 1,000 ML with SODIUM BICARB (1 MEQ/ML) 150 ML IV SCH ×3 (03:06→21:15)
[2021-06-09 04:54] LABS: Basophils # (A) 0.1 k/uL (0-0.2); Basophils % (A) 0 %; Eosinophils % (A) 0 %; HCT 30.4 % (39.0-53.0); HGB 9.7 gm/dL (13.0-17.5); Hypochromasia Slight; Lymphocytes # (A) 1.2 k/uL (1.0-4.8); Lymphocytes % (A) 6 %; MCH 32.9 pg (25.0-35.0); MCHC 31.9 g/dL (31.0-37.0); Macrocytosis Slight; Mean Platelet Volume 8.2; Monocytes # (A) 1.4 k/uL (0-1.0); Monocytes % (A) 7 %; Neutrophils # (A) 16.7 k/uL (1.3-7.7); Neutrophils % (A) 85 %; Platelet Count 215 k/uL (150-450); RBC 2.94 m/uL (4.30-5.90); RDW 12.4 % (11.5-15.5); WBC 19.6 k/uL (3.8-10.6)
[2021-06-09 05:11] LABS: Calcium 7.1 mg/dL (8.4-10.2); Magnesium 1.6 mg/dL (1.6-2.3); Phosphorus 8.4 mg/dL (2.5-4.5); Potassium 5.4 mmol/L (3.5-5.1)
[2021-06-09 06:11] LABS: MCV 103.4 fL (80.0-100.0)
[2021-06-09 06:34] LABS: Glucose,Whole Blood 382 mg/dL (75-99)
[2021-06-09] MEDS: INSULIN ASPART (NovoLOG) 100 UNIT/ML VIAL SQ SCH ×3 (06:37→17:20)
[2021-06-09] MEDS: MAGNESIUM SULFATE-D5W PMX 1 GM in DEXTROSE/WATER 1 100ML.BAG IVPB SCH ×2 (06:43→10:40)
[2021-06-09] MEDS: NOREPINEPHRINE 8 MG in SODIUM CHLORIDE 0.9% 250 ML IV SCH ×2 (07:01→20:41)
--- NOTE | 2021-06-09 09:39 | P.NPCON ---
History of Present Illness - Reason for Consult acute renal failure, hyperkalemia - History of Present Illness Reason for consultation: Acute kidney injury and hyperkalemia History of present illness: Patient is a 71-year-old male seen in consultation for acute kidney injury and hyperkalemia. Patient presented to the hospital with generalized weakness as well as nausea and vomiting. Patient is currently resting in bed and is somewhat lethargic. He was extubated yesterday. Patient was noted to have bilateral hydronephrosis due to kidney stones and has been following with urology prior to this admission. He underwent bilateral ureteral stent placements on 06/08/2021. He is also received 6 L of normal saline bolus and is now maintained on bicarbonate running at 1 50 mL an hour. Patient was noted to be severely acidotic which is now starting to improve. Potassium was also high at 6.7 and has been medically treated multiple times. It was 5.4 this morning. Urine output is starting to improve and was 60 mL and 75 mL in the last 2 hours. Blood pressure was also low in the systolic 80s to 90s and is better now. He is on low-dose Levophed. He was also on lisinopril outpatient which is currently held. Additionally I also see Toradol and his home medication list. Patient does have history of diabetes and was on metformin as part of his treatment. Vital signs are stable. General: The patient appeared well nourished and normally developed. HEENT: Head exam is unremarkable. LUNGS: Breath sounds decreased. HEART: Rate and Rhythm are regular. ABDOMEN: Soft, no distention. EXTREMITITES: No edema. Past Medical History Past Medical History: Asthma, Diabetes Mellitus, Hyperlipidemia, Hypertension, Skin Disorder Additional Past Medical History / Comment(s): hx heart murmer, kidney stones, umbilical hernia, History of Any Multi-Drug Resistant Organisms: None Reported Past Surgical History: Orthopedic Surgery Additional Past Surgical History / Comment(s): rt knee surgery, mole removed from rt upper chest, rt shoulder-rotator cuff, kidney stones blasted multiple times Past Anesthesia/Blood Transfusion Reactions: No Reported Reaction Past Psychological History: Depression Smoking Status: Never smoker Past Alcohol Use History: None Reported Past Drug Use History: None Reported - Past Family History Sister(s) Family Medical History: Deep Vein Thrombosis (DVT) Medications and Allergies Home Medications Medication Instructions Recorded Confirmed Type lisinopriL [Zestril] 10 mg PO QAM 08/12/16 06/08/21 History Escitalopram Oxalate [Lexapro] 30 mg PO DAILY 09/19/18 06/08/21 History Multivitamins, Thera [Multivitamin 1 tab PO DAILY 09/19/18 06/08/21 History (formulary)] Gabapentin [Neurontin] 400 mg PO TID 06/12/20 06/08/21 History Lovastatin [Mevacor] 40 mg PO DAILY 06/12/20 06/08/21 History Ketorolac [Toradol] 10 mg PO Q8HR #15 tab 06/01/21 06/08/21 Rx Ondansetron Odt [Zofran Odt] 4 mg PO Q8HR PRN #10 tab 06/01/21 06/08/21 Rx Tamsulosin [Flomax] 0.4 mg PO DAILY #7 cap 06/01/21 06/08/21 Rx metFORMIN HCL ER [Glucophage XR] 1,000 mg PO BID 06/01/21 06/08/21 History Semaglutide [Ozempic] 0.5 mg SQ Q7D 06/08/21 06/08/21 History Allergies Allergy/AdvReac Type Severity Reaction Status Date / Time No Known Allergies Allergy Verified 06/08/21 08:29 Physical Exam Vitals: Vital Signs Temp Pulse Resp BP Pulse Ox 06/09/21 07:00 96 16 132/64 92 L 06/09/21 06:45 98 17 125/53 94 L 06/09/21 06:30 99 20 130/56 94 L 06/09/21 06:15 101 H 19 97/54 95 06/09/21 06:00 99 38 H 134/57 94 L 06/09/21 05:45 99 22 126/62 94 L 06/09/21 05:30 99 17 110/95 95 06/09/21 05:15 99 21 117/52 95 06/09/21 05:00 98 34 H 109/56 94 L 06/09/21 04:45 98 19 117/55 95 06/09/21 04:30 98 18 90/46 94 L 06/09/21 04:15 96 26 H 114/57 95 06/09/21 04:00 97.9 F 99 28 H 128/58 96 06/09/21 03:45 101 H 20 128/60 95 06/09/21 03:30 101 H 18 118/54 95 06/09/21 03:15 106 H 23 92/56 96 06/09/21 03:00 96 19 112/45 95 06/09/21 02:45 96 18 109/42 96 06/09/21 02:30 96 18 91/38 96 06/09/21 02:15 98 22 107/45 94 L 06/09/21 02:00 98 24 99/39 95 06/09/21 01:45 100 24 114/47 96 06/09/21 01:30 98 19 85/35 95 06/09/21 01:15 101 H 20 93/45 95 06/09/21 01:00 99 20 107/44 96 06/09/21 00:45 97 19 105/47 97 06/09/21 00:30 98 18 106/44 95 06/09/21 00:15 99 19 104/44 95 06/09/21 00:00 97.8 F 99 18 104/44 94 L 06/08/21 23:45 102 H 31 H 94 L 06/08/21 23:30 100 20 107/55 94 L 06/08/21 23:15 101 H 23 95 06/08/21 23:00 99 20 115/62 95 06/08/21 22:45 98 21 110/49 94 L 06/08/21 22:30 17 94 L 06/08/21 22:15 97 19 93 L 06/08/21 22:00 96 20 113/54 93 L 06/08/21 21:45 96 20 99/43 94 L 06/08/21 21:30 92 20 118/43 94 L 06/08/21 21:15 98 19 115/50 94 L 06/08/21 21:00 97.7 F 98 21 112/46 93 L 06/08/21 20:45 98 17 115/51 92 L 06/08/21 20:30 96 18 119/52 92 L 06/08/21 20:15 104 H 19 136/57 94 L 06/08/21 20:00 90 20 138/58 94 L 06/08/21 19:45 90 18 131/56 93 L 06/08/21 19:30 87 18 67/35 94 L 06/08/21 19:15 72 18 76/34 94 L 06/08/21 19:00 73 19 112/38 95 06/08/21 18:45 80 20 92/43 95 06/08/21 18:30 93.8 F L 77 21 86/41 94 L 06/08/21 18:15 72 22 79/41 95 06/08/21 18:00 72 22 69/33 95 06/08/21 17:45 65 22 73/35 94 L 06/08/21 17:30 68 20 63/35 95 06/08/21 17:15 65 20 72/38 96 06/08/21 17:00 66 21 75/37 96 06/08/21 16:45 67 21 82/35 99 06/08/21 16:30 69 23 84/37 99 06/08/21 16:15 69 22 89/42 99 06/08/21 16:00 71 20 86/41 98 06/08/21 15:45 68 20 86/44 98 06/08/21 15:30 91.2 F L 68 21 96/34 99 06/08/21 15:15 67 38 H 92/42 99 06/08/21 15:00 66 31 H 85/47 99 06/08/21 12:57 74 18 94/40 06/08/21 11:30 91 24 93/34 97 06/08/21 10:44 84 22 06/08/21 10:32 87 22 06/08/21 09:43 92 18 147/68 98 Intake and Output 06/08/21 06/09/21 06/09/21 22:59 06:59 14:59 Intake Total 4364.000 1832.825 176.597 Output Total 30 130 75 Balance 4334.000 1702.825 101.597 Intake: IV 4110 1360 170 0.9 @20mls/hr 60 160 20 Dextrose 5% in Water 1, 1050 1200 150 000 ml @ 150 mls/hr IV . Q7H40M ANTONIO with Sodium Bicarb (1 Meq/ml) 150 ml Rx#:[id number] Sodium Chloride 0.9% 3, 3000 000 ml @ 999 mls/hr IV . Q3H1M [facility] Rx#:[id number] Intake, IV Titration 254.000 472.825 6.597 Amount Norepinephrine 4 mg In 254.000 472.825 Sodium Chloride 0.9% 250 ml @ 0.05 MCG/KG/MIN 17. 714 mls/hr IV .[id number] [facility] Rx#:[id number] Norepinephrine 8 mg In 6.597 Sodium Chloride 0.9% 250 ml @ 0.05 MCG/KG/MIN 8. 996 mls/hr IV .Q24H [facility] Rx#:[id number] Output: Urine 30 130 75 Other: Voiding Method Indwelling Catheter Indwelling Catheter Weight 97.7 kg 98.2 kg Results - Lab Results Most recent lab results Calcium 7.1 mg/dL (8.4-10.2) L 06/09/21 04:21 Phosphorus 8.4 mg/dL (2.5-4.5) H 06/09/21 04:21 Magnesium 1.6 mg/dL (1.6-2.3) 06/09/21 04:21 06/09/21 04:21 06/09/21 04:21 Assessment and Plan Plan: Assessment: 1. Acute kidney injury secondary to ATN secondary to obstructive uropathy and hypotension. Creatinine was 11.6 on admission and is 10.25 this morning. Mariangel hendricks's creatinine the last 2 years has been in the range of 1.6-2. 2. Bilateral hydronephrosis with nephrolithiasis status post ureteral stent placement on June 08. 3. Hyperkalemia secondary to acute kidney injury, metabolic acidosis and lisinopril. 4. Metabolic acidosis secondary to acute kidney injury and lactic acidosis. He was also on metformin outpatient. 5. Diabetes mellitus. 6. Hypernatremia from lack of oral water intake. Plan: Maintain bicarb drip at 150 mL an hour. Encourage oral intake, including free water. Continue to monitor renal function and urine output. Wean Levophed. Repeat BMP at noon. Continue to assess daily for need for renal replacement therapy. Blood sugar control. Thank you for the consultation. I will continue to follow the patient with you during his hospital stay.
--- NOTE | 2021-06-09 10:31 | P.PN ---
Subjective Progress Note Date: 06/09/21 Principal diagnosis: Urinary tract infection, kidney stones. Pulmonary/critical care consultation dated 06/08/2021. 71-year-old male, who presents to the emergency department at 0652 in the morning on June 08. He was brought in by his . This patient for the last week to 10 days has not been feeling well. He's had significant weakness, fatigue, nausea, and vomiting. According to his , the patient became very weak, and really could not balance himself or walk properly. For that reason, she brought in to be evaluated. In addition, the patient has not urinated in the last 24 hours. He had some mental status changes and obviously was very concerned. We were asked to see the patient for possible admission to the intensive care unit. The patient was hypotensive. In addition, the patient had developed acute kidney injury/acute renal failure, and was found on CAT scan to have kidney stones. He may need a stent placement according to the ER physician. His medical history includes asthma, diabetes, hyperlipidemia, hypertension, kidney stones, umbilical hernia, and recent coronavirus infection. The patient is a lifelong nonsmoker. There is a family history of deep venous thrombosis. White count was 15.8, hemoglobin 11.5, hematocrit 37.2, platelet count 219,000. Sodium 150, potassium 5.1, chlorides 101, CO2 less than 5, anion gap was 38, BUN 72, and creatinine 11.21. Lactic acid was 14.6. CT of the abdomen and pelvis showed new mild right-sided hydronephrosis and right perinephritic fat stranding with interval passage of a small lower pole right renal calculi into the bladder. There is persistent moderate left-sided hydronephrosis due to obstructing distal ureter calculi. It should also be noted that the patient was here about a week ago, hydrated in the emergency department, and discharged home. The patient is to go to the operating room for bilateral stent placement. Progress note dated 06/09/2021. 71-year-old white male seen yesterday in the emergency department. The patient went to the operating room yesterday, had bilateral ureteral stents. He was successfully extubated on June 08. Today's postop day #1. Currently, he's on 3 L nasal cannula, IV Rocephin, and an IV of D5W with 3 ampules of sodium bicarbonate at 1 50 mL an hour. The patient is getting saline at 20 mL now which I told the nurse to discontinue. In addition, the patient is on norepinephrine at 9 mcg/m. Clinically he appears to be a bit sleepy but does arouse and is appropriate. White count is 19.6, hemoglobin 9.7, hematocrit 30.4, and platelet count 215,000 sodium is 148, potassium 5.4, chlorides 97, CO2 11, anion gap is 4, BUN is 81, creatinine is 10.25. Plasma lactic acid is 13.8. Magnesium 1.6. Objective - Vital Signs Vital signs: Vital Signs Temp 97.9 F 06/09/21 04:00 Pulse 96 06/09/21 07:00 Resp 16 06/09/21 07:00 BP 132/64 06/09/21 07:00 Pulse Ox 92 L 06/09/21 07:00 Intake & Output 06/08/21 06/09/21 06/09/21 18:59 06:59 18:59 Intake Total 3853.626 2643.199 176.597 Output Total 8 155 75 Balance 3845.626 2488.199 101.597 Weight 97.7 kg 98.2 kg Intake: IV 3750 2020 170 0.9 @20mls/hr 220 20 Dextrose 5% in Water 1, 450 1800 150 000 ml @ 150 mls/hr IV . Q7H40M ANTONIO with Sodium Bicarb (1 Meq/ml) 150 ml Rx#:[id number] Sodium Chloride 0.9% 3, 3000 000 ml @ 999 mls/hr IV . Q3H1M ONE Rx#:[id number] Intake, IV Titration 103.626 623.199 6.597 Amount Norepinephrine 4 mg In 103.626 623.199 Sodium Chloride 0.9% 250 ml @ 0.05 MCG/KG/MIN 17. 714 mls/hr IV .[id number] ANTONIO Rx#:[id number] Norepinephrine 8 mg In 6.597 Sodium Chloride 0.9% 250 ml @ 0.05 MCG/KG/MIN 8. 996 mls/hr IV .Q24H ANTONIO Rx#:[id number] Output: Urine 5 155 75 Estimated Blood Loss 3 Other: Voiding Method Indwelling Catheter Indwelling Catheter - Exam No acute distress, sleepy, possibly from pain medication. No respiratory distress, audible wheezing, use of accessory muscles, or conversational dyspnea. Currently on 3 L nasal cannula. HEENT examination is grossly unremarkable. Neck supple. Full range of motion. No adenopathy thyromegaly or neck vein distention. Cardiovascular examination reveals regular rhythm rate. S1-S2 normal. No S3 or S4. No discernible murmur noted. Heart rate 96 bpm. Lungs reveal mostly clear breath sounds. No wheezes or crackles. Scattered mild rhonchi. Breath sounds equal bilaterally. Abdomen soft bowel sounds are heard. No masses or tenderness. Extremities are intact. No cyanosis clubbing or edema. Skin is without rash or lesion. Neurologic examination is brief but nonfocal. - Labs CBC & Chem 7: 06/09/21 04:21 06/09/21 04:21 Labs: Abnormal Lab Results - Last 24 Hours (Table) 06/08/21 06/08/21 06/08/21 Range/Units 10:35 11:45 11:45 WBC (3.8-10.6) k/uL RBC (4.30-5.90) m/uL Hgb (13.0-17.5) gm/dL Hct (39.0-53.0) % MCV (80.0-100.0) fL MCHC (31.0-37.0) g/dL Neutrophils # (1.3-7.7) k/uL Neutrophils # (Manual) (1.3-7.7) k/uL Monocytes # (0-1.0) k/uL Metamyelocytes # (Man) (0) k/uL Macrocytosis Sodium 150 H (137-145) mmol/L Potassium (3.5-5.1) mmol/L Chloride (98-107) mmol/L Carbon Dioxide <5 L* (22-30) mmol/L BUN 72 H (9-20) mg/dL Creatinine 11.21 H* (0.66-1.25) mg/dL Glucose 197 H (74-99) mg/dL POC Glucose (mg/dL) (75-99) mg/dL Plasma Lactic Acid Collin >24.0 H* (0.7-2.0) mmol/L Calcium (8.4-10.2) mg/dL Phosphorus (2.5-4.5) mg/dL AST (17-59) U/L Alkaline Phosphatase (38-126) U/L Total Protein (6.3-8.2) g/dL Procalcitonin (0.02-0.09) ng/mL Urine Protein 2+ H (Negative) Urine Glucose (UA) Trace H (Negative) Urine Ketones 1+ H (Negative) Urine Blood Moderate H (Negative) Ur Leukocyte Esterase Large H (Negative) Urine RBC >182 H (0-5) /hpf Urine WBC 95 H (0-5) /hpf Urine Bacteria Rare H (None) /hpf Urine Mucus Rare H (None) /hpf Urine Yeast (Budding) Few H (None) /hpf 06/08/21 06/08/21 06/08/21 Range/Units 14:40 15:41 18:40 WBC (3.8-10.6) k/uL RBC (4.30-5.90) m/uL Hgb (13.0-17.5) gm/dL Hct (39.0-53.0) % MCV (80.0-100.0) fL MCHC (31.0-37.0) g/dL Neutrophils # (1.3-7.7) k/uL Neutrophils # (Manual) (1.3-7.7) k/uL Monocytes # (0-1.0) k/uL Metamyelocytes # (Man) (0) k/uL Macrocytosis Sodium 146 H (137-145) mmol/L Potassium 5.9 H (3.5-5.1) mmol/L Chloride (98-107) mmol/L Carbon Dioxide <5 L* (22-30) mmol/L BUN 72 H (9-20) mg/dL Creatinine 10.84 H* (0.66-1.25) mg/dL Glucose 249 H (74-99) mg/dL POC Glucose (mg/dL) 209 H (75-99) mg/dL Plasma Lactic Acid Collin >24.0 H* (0.7-2.0) mmol/L Calcium 7.9 L (8.4-10.2) mg/dL Phosphorus 13.2 H* (2.5-4.5) mg/dL AST (17-59) U/L Alkaline Phosphatase (38-126) U/L Total Protein (6.3-8.2) g/dL Procalcitonin (0.02-0.09) ng/mL Urine Protein (Negative) Urine Glucose (UA) (Negative) Urine Ketones (Negative) Urine Blood (Negative) Ur Leukocyte Esterase (Negative) Urine RBC (0-5) /hpf Urine WBC (0-5) /hpf Urine Bacteria (None) /hpf Urine Mucus (None) /hpf Urine Yeast (Budding) (None) /hpf 06/08/21 06/08/21 06/08/21 Range/Units 18:40 18:40 18:44 WBC (3.8-10.6) k/uL RBC (4.30-5.90) m/uL Hgb (13.0-17.5) gm/dL Hct (39.0-53.0) % MCV (80.0-100.0) fL MCHC (31.0-37.0) g/dL Neutrophils # (1.3-7.7) k/uL Neutrophils # (Manual) (1.3-7.7) k/uL Monocytes # (0-1.0) k/uL Metamyelocytes # (Man) (0) k/uL Macrocytosis Sodium (137-145) mmol/L Potassium (3.5-5.1) mmol/L Chloride (98-107) mmol/L Carbon Dioxide (22-30) mmol/L BUN (9-20) mg/dL Creatinine (0.66-1.25) mg/dL Glucose (74-99) mg/dL POC Glucose (mg/dL) 261 H (75-99) mg/dL Plasma Lactic Acid Collin 22.7 H* (0.7-2.0) mmol/L Calcium (8.4-10.2) mg/dL Phosphorus (2.5-4.5) mg/dL AST (17-59) U/L Alkaline Phosphatase (38-126) U/L Total Protein (6.3-8.2) g/dL Procalcitonin 1.57 H (0.02-0.09) ng/mL Urine Protein (Negative) Urine Glucose (UA) (Negative) Urine Ketones (Negative) Urine Blood (Negative) Ur Leukocyte Esterase (Negative) Urine RBC (0-5) /hpf Urine WBC (0-5) /hpf Urine Bacteria (None) /hpf Urine Mucus (None) /hpf Urine Yeast (Budding) (None) /hpf 06/08/21 06/08/21 06/09/21 Range/Units 21:55 22:51 00:39 WBC 30.5 H (3.8-10.6) k/uL RBC 3.36 L (4.30-5.90) m/uL Hgb 11.0 L (13.0-17.5) gm/dL Hct 36.9 L (39.0-53.0) % MCV 109.7 H D (80.0-100.0) fL MCHC 29.8 L (31.0-37.0) g/dL Neutrophils # (1.3-7.7) k/uL Neutrophils # (Manual) 25.30 H (1.3-7.7) k/uL Monocytes # (0-1.0) k/uL Metamyelocytes # (Man) 0.61 H (0) k/uL Macrocytosis Marked A Sodium (137-145) mmol/L Potassium (3.5-5.1) mmol/L Chloride (98-107) mmol/L Carbon Dioxide (22-30) mmol/L BUN (9-20) mg/dL Creatinine (0.66-1.25) mg/dL Glucose (74-99) mg/dL POC Glucose (mg/dL) 374 H (75-99) mg/dL Plasma Lactic Acid Collin 23.5 H* (0.7-2.0) mmol/L Calcium (8.4-10.2) mg/dL Phosphorus (2.5-4.5) mg/dL AST (17-59) U/L Alkaline Phosphatase (38-126) U/L Total Protein (6.3-8.2) g/dL Procalcitonin (0.02-0.09) ng/mL Urine Protein (Negative) Urine Glucose (UA) (Negative) Urine Ketones (Negative) Urine Blood (Negative) Ur Leukocyte Esterase (Negative) Urine RBC (0-5) /hpf Urine WBC (0-5) /hpf Urine Bacteria (None) /hpf Urine Mucus (None) /hpf Urine Yeast (Budding) (None) /hpf 06/09/21 06/09/21 06/09/21 Range/Units 00:39 00:39 04:21 WBC 19.6 H (3.8-10.6) k/uL RBC 2.94 L (4.30-5.90) m/uL Hgb 9.7 L (13.0-17.5) gm/dL Hct 30.4 L (39.0-53.0) % MCV 103.4 H D (80.0-100.0) fL MCHC (31.0-37.0) g/dL Neutrophils # 16.7 H (1.3-7.7) k/uL Neutrophils # (Manual) (1.3-7.7) k/uL Monocytes # 1.4 H (0-1.0) k/uL Metamyelocytes # (Man) (0) k/uL Macrocytosis Sodium (137-145) mmol/L Potassium 6.2 H* (3.5-5.1) mmol/L Chloride (98-107) mmol/L Carbon Dioxide 6 L* (22-30) mmol/L BUN 75 H (9-20) mg/dL Creatinine 10.74 H* (0.66-1.25) mg/dL Glucose 348 H (74-99) mg/dL POC Glucose (mg/dL) (75-99) mg/dL Plasma Lactic Acid Collin 19.7 H* (0.7-2.0) mmol/L Calcium 7.6 L (8.4-10.2) mg/dL Phosphorus 11.8 H* (2.5-4.5) mg/dL AST 79 H (17-59) U/L Alkaline Phosphatase 32 L (38-126) U/L Total Protein 5.4 L (6.3-8.2) g/dL Procalcitonin (0.02-0.09) ng/mL Urine Protein (Negative) Urine Glucose (UA) (Negative) Urine Ketones (Negative) Urine Blood (Negative) Ur Leukocyte Esterase (Negative) Urine RBC (0-5) /hpf Urine WBC (0-5) /hpf Urine Bacteria (None) /hpf Urine Mucus (None) /hpf Urine Yeast (Budding) (None) /hpf 06/09/21 06/09/21 06/09/21 Range/Units 04:21 04:21 06:32 WBC (3.8-10.6) k/uL RBC (4.30-5.90) m/uL Hgb (13.0-17.5) gm/dL Hct (39.0-53.0) % MCV (80.0-100.0) fL MCHC (31.0-37.0) g/dL Neutrophils # (1.3-7.7) k/uL Neutrophils # (Manual) (1.3-7.7) k/uL Monocytes # (0-1.0) k/uL Metamyelocytes # (Man) (0) k/uL Macrocytosis Sodium 148 H (137-145) mmol/L Potassium 5.4 H (3.5-5.1) mmol/L Chloride 97 L (98-107) mmol/L Carbon Dioxide 11 L (22-30) mmol/L BUN 81 H (9-20) mg/dL Creatinine 10.25 H* (0.66-1.25) mg/dL Glucose 375 H (74-99) mg/dL POC Glucose (mg/dL) 382 H (75-99) mg/dL Plasma Lactic Acid Collin 17.3 H* (0.7-2.0) mmol/L Calcium 7.1 L (8.4-10.2) mg/dL Phosphorus 8.4 H (2.5-4.5) mg/dL AST (17-59) U/L Alkaline Phosphatase (38-126) U/L Total Protein (6.3-8.2) g/dL Procalcitonin (0.02-0.09) ng/mL Urine Protein (Negative) Urine Glucose (UA) (Negative) Urine Ketones (Negative) Urine Blood (Negative) Ur Leukocyte Esterase (Negative) Urine RBC (0-5) /hpf Urine WBC (0-5) /hpf Urine Bacteria (None) /hpf Urine Mucus (None) /hpf Urine Yeast (Budding) (None) /hpf 06/09/21 Range/Units 08:24 WBC (3.8-10.6) k/uL RBC (4.30-5.90) m/uL Hgb (13.0-17.5) gm/dL Hct (39.0-53.0) % MCV (80.0-100.0) fL MCHC (31.0-37.0) g/dL Neutrophils # (1.3-7.7) k/uL Neutrophils # (Manual) (1.3-7.7) k/uL Monocytes # (0-1.0) k/uL Metamyelocytes # (Man) (0) k/uL Macrocytosis Sodium (137-145) mmol/L Potassium (3.5-5.1) mmol/L Chloride (98-107) mmol/L Carbon Dioxide (22-30) mmol/L BUN (9-20) mg/dL Creatinine (0.66-1.25) mg/dL Glucose (74-99) mg/dL POC Glucose (mg/dL) (75-99) mg/dL Plasma Lactic Acid Collin 13.8 H* (0.7-2.0) mmol/L Calcium (8.4-10.2) mg/dL Phosphorus (2.5-4.5) mg/dL AST (17-59) U/L Alkaline Phosphatase (38-126) U/L Total Protein (6.3-8.2) g/dL Procalcitonin (0.02-0.09) ng/mL Urine Protein (Negative) Urine Glucose (UA) (Negative) Urine Ketones (Negative) Urine Blood (Negative) Ur Leukocyte Esterase (Negative) Urine RBC (0-5) /hpf Urine WBC (0-5) /hpf Urine Bacteria (None) /hpf Urine Mucus (None) /hpf Urine Yeast (Budding) (None) /hpf Microbiology - Last 24 Hours (Table) 06/08/21 13:57 Gram Stain - Preliminary Aspirate Body Fluid Culture - Preliminary 06/08/21 13:57 Anaerobic Culture - Preliminary Aspirate 06/08/21 10:35 Urine Culture - Preliminary Urine,Clean Catch Assessment and Plan Assessment: Acute kidney injury, secondary to bilateral renal calculi, and bilateral hydronephrosis. Routine postoperative ventilator management, with extubation successfully on 06/08/2021. Postop day #1, status post bilateral ureteral stents. Severe anion gap metabolic acidosis, secondary to acute kidney injury/acute renal failure. Acute lactic acidosis. Acute hyperkalemia. Rule out sepsis. Anuria/oliguria. History of diabetes mellitus. History of hyperlipidemia. History of hypertension. Prior history of kidney stones. History of asthma. Plan: Plan dated 06/08/2021. The patient will be transferred to the intensive care unit for further monitoring and management. The patient is to go to the operating room for bilateral stent placement, given his bilateral renal calculi and bilateral hydronephrosis. Blood cultures and urine sampling should be done. Additional recommendations and suggestions are forthcoming. If not already done, nephrology should be consulted. We will continue to follow along and make recommendations where appropriate. I did talk to the patient's and the patient today. Additional recommendations and suggestions are forthcoming. Plan dated 06/09/2021. The patient was successfully extubated yesterday, June 08 in the intensive care unit. He's postop day #1, status post bilateral ureteral stents. The patient is on IV Rocephin. He is getting O2 at 3 L. For her severe metabolic acidosis, he is on D5W IV, with 3 ampules of sodium bicarbonate, at 150 mL an hour. Clinically, he is doing well. He is awake and alert. The patient remains on norepinephrine at 9 mcg/m. I did ask the nurse to check a TSH, and a random cortisol level. Prognosis is guarded. We will continue to follow the patient and make recommendations where appropriate. Time with Patient: Greater than 30
--- NOTE | 2021-06-09 12:03 | P.PN ---
Subjective Progress Note Date: 06/09/21 Patient is doing better, extubated in the ICU following bilateral nephroureteral stent placement. Creatinine is modestly improved, lactic acid is coming down, urine output is increasing. Potassium is still elevated, nephrology is following for consideration of renal replacement therapy if indicated, but will continue to follow at this time as urine output is improving. Patient is a little bit groggy from sedation, pain medication. 93% on 2 L nasal cannula. White blood cell count is improving. Patient is still requiring levo fed, 0.15 mics Objective - Vital Signs Vital signs: Vital Signs Temp 97.9 F 06/09/21 04:00 Pulse 96 06/09/21 07:00 Resp 16 06/09/21 07:00 BP 132/64 06/09/21 07:00 Pulse Ox 92 L 06/09/21 07:00 Intake & Output 06/08/21 06/09/21 06/09/21 18:59 06:59 18:59 Intake Total 3853.626 2643.199 176.597 Output Total 8 155 75 Balance 3845.626 2488.199 101.597 Weight 97.7 kg 98.2 kg Intake: IV 3750 2020 170 0.9 @20mls/hr 220 20 Dextrose 5% in Water 1, 450 1800 150 000 ml @ 150 mls/hr IV . Q7H40M ANTONIO with Sodium Bicarb (1 Meq/ml) 150 ml Rx#:[id number] Sodium Chloride 0.9% 3, 3000 000 ml @ 999 mls/hr IV . Q3H1M ONE Rx#:[id number] Intake, IV Titration 103.626 623.199 6.597 Amount Norepinephrine 4 mg In 103.626 623.199 Sodium Chloride 0.9% 250 ml @ 0.05 MCG/KG/MIN 17. 714 mls/hr IV .[id number] ANTONIO Rx#:[id number] Norepinephrine 8 mg In 6.597 Sodium Chloride 0.9% 250 ml @ 0.05 MCG/KG/MIN 8. 996 mls/hr IV .Q24H ANTONIO Rx#:[id number] Output: Urine 5 155 75 Estimated Blood Loss 3 Other: Voiding Method Indwelling Catheter Indwelling Catheter - Exam Gen: awake, alert and oriented 2 HEENT: normocephalic, atraumatic, good hearing acuity, moist mucous membranes Resp: good air exchange, breathing comfortably with no accessory muscle use CVS: good distal perfusion x 4, GI: soft, NTTP, ND : no SPT, bilateral CVAT, carey catheter is present, grossly hemorrhagic MSK: no pitting edema, no clubbing Neuro: non-focal, moving all extremities Psych: cooperative, euthymic mood - Labs CBC & Chem 7: 06/09/21 04:21 06/09/21 04:21 Labs: Abnormal Lab Results - Last 24 Hours (Table) 06/08/21 06/08/21 06/08/21 Range/Units 10:35 11:45 11:45 WBC (3.8-10.6) k/uL RBC (4.30-5.90) m/uL Hgb (13.0-17.5) gm/dL Hct (39.0-53.0) % MCV (80.0-100.0) fL MCHC (31.0-37.0) g/dL Neutrophils # (1.3-7.7) k/uL Neutrophils # (Manual) (1.3-7.7) k/uL Monocytes # (0-1.0) k/uL Metamyelocytes # (Man) (0) k/uL Macrocytosis Sodium 150 H (137-145) mmol/L Potassium (3.5-5.1) mmol/L Chloride (98-107) mmol/L Carbon Dioxide <5 L* (22-30) mmol/L BUN 72 H (9-20) mg/dL Creatinine 11.21 H* (0.66-1.25) mg/dL Glucose 197 H (74-99) mg/dL POC Glucose (mg/dL) (75-99) mg/dL Plasma Lactic Acid Collin >24.0 H* (0.7-2.0) mmol/L Calcium (8.4-10.2) mg/dL Phosphorus (2.5-4.5) mg/dL AST (17-59) U/L Alkaline Phosphatase (38-126) U/L Total Protein (6.3-8.2) g/dL Procalcitonin (0.02-0.09) ng/mL Urine Protein 2+ H (Negative) Urine Glucose (UA) Trace H (Negative) Urine Ketones 1+ H (Negative) Urine Blood Moderate H (Negative) Ur Leukocyte Esterase Large H (Negative) Urine RBC >182 H (0-5) /hpf Urine WBC 95 H (0-5) /hpf Urine Bacteria Rare H (None) /hpf Urine Mucus Rare H (None) /hpf Urine Yeast (Budding) Few H (None) /hpf 06/08/21 06/08/21 06/08/21 Range/Units 14:40 15:41 18:40 WBC (3.8-10.6) k/uL RBC (4.30-5.90) m/uL Hgb (13.0-17.5) gm/dL Hct (39.0-53.0) % MCV (80.0-100.0) fL MCHC (31.0-37.0) g/dL Neutrophils # (1.3-7.7) k/uL Neutrophils # (Manual) (1.3-7.7) k/uL Monocytes # (0-1.0) k/uL Metamyelocytes # (Man) (0) k/uL Macrocytosis Sodium 146 H (137-145) mmol/L Potassium 5.9 H (3.5-5.1) mmol/L Chloride (98-107) mmol/L Carbon Dioxide <5 L* (22-30) mmol/L BUN 72 H (9-20) mg/dL Creatinine 10.84 H* (0.66-1.25) mg/dL Glucose 249 H (74-99) mg/dL POC Glucose (mg/dL) 209 H (75-99) mg/dL Plasma Lactic Acid Collin >24.0 H* (0.7-2.0) mmol/L Calcium 7.9 L (8.4-10.2) mg/dL Phosphorus 13.2 H* (2.5-4.5) mg/dL AST (17-59) U/L Alkaline Phosphatase (38-126) U/L Total Protein (6.3-8.2) g/dL Procalcitonin (0.02-0.09) ng/mL Urine Protein (Negative) Urine Glucose (UA) (Negative) Urine Ketones (Negative) Urine Blood (Negative) Ur Leukocyte Esterase (Negative) Urine RBC (0-5) /hpf Urine WBC (0-5) /hpf Urine Bacteria (None) /hpf Urine Mucus (None) /hpf Urine Yeast (Budding) (None) /hpf 06/08/21 06/08/21 06/08/21 Range/Units 18:40 18:40 18:44 WBC (3.8-10.6) k/uL RBC (4.30-5.90) m/uL Hgb (13.0-17.5) gm/dL Hct (39.0-53.0) % MCV (80.0-100.0) fL MCHC (31.0-37.0) g/dL Neutrophils # (1.3-7.7) k/uL Neutrophils # (Manual) (1.3-7.7) k/uL Monocytes # (0-1.0) k/uL Metamyelocytes # (Man) (0) k/uL Macrocytosis Sodium (137-145) mmol/L Potassium (3.5-5.1) mmol/L Chloride (98-107) mmol/L Carbon Dioxide (22-30) mmol/L BUN (9-20) mg/dL Creatinine (0.66-1.25) mg/dL Glucose (74-99) mg/dL POC Glucose (mg/dL) 261 H (75-99) mg/dL Plasma Lactic Acid Collin 22.7 H* (0.7-2.0) mmol/L Calcium (8.4-10.2) mg/dL Phosphorus (2.5-4.5) mg/dL AST (17-59) U/L Alkaline Phosphatase (38-126) U/L Total Protein (6.3-8.2) g/dL Procalcitonin 1.57 H (0.02-0.09) ng/mL Urine Protein (Negative) Urine Glucose (UA) (Negative) Urine Ketones (Negative) Urine Blood (Negative) Ur Leukocyte Esterase (Negative) Urine RBC (0-5) /hpf Urine WBC (0-5) /hpf Urine Bacteria (None) /hpf Urine Mucus (None) /hpf Urine Yeast (Budding) (None) /hpf 06/08/21 06/08/21 06/09/21 Range/Units 21:55 22:51 00:39 WBC 30.5 H (3.8-10.6) k/uL RBC 3.36 L (4.30-5.90) m/uL Hgb 11.0 L (13.0-17.5) gm/dL Hct 36.9 L (39.0-53.0) % MCV 109.7 H D (80.0-100.0) fL MCHC 29.8 L (31.0-37.0) g/dL Neutrophils # (1.3-7.7) k/uL Neutrophils # (Manual) 25.30 H (1.3-7.7) k/uL Monocytes # (0-1.0) k/uL Metamyelocytes # (Man) 0.61 H (0) k/uL Macrocytosis Marked A Sodium (137-145) mmol/L Potassium (3.5-5.1) mmol/L Chloride (98-107) mmol/L Carbon Dioxide (22-30) mmol/L BUN (9-20) mg/dL Creatinine (0.66-1.25) mg/dL Glucose (74-99) mg/dL POC Glucose (mg/dL) 374 H (75-99) mg/dL Plasma Lactic Acid Collin 23.5 H* (0.7-2.0) mmol/L Calcium (8.4-10.2) mg/dL Phosphorus (2.5-4.5) mg/dL AST (17-59) U/L Alkaline Phosphatase (38-126) U/L Total Protein (6.3-8.2) g/dL Procalcitonin (0.02-0.09) ng/mL Urine Protein (Negative) Urine Glucose (UA) (Negative) Urine Ketones (Negative) Urine Blood (Negative) Ur Leukocyte Esterase (Negative) Urine RBC (0-5) /hpf Urine WBC (0-5) /hpf Urine Bacteria (None) /hpf Urine Mucus (None) /hpf Urine Yeast (Budding) (None) /hpf 06/09/21 06/09/21 06/09/21 Range/Units 00:39 00:39 04:21 WBC 19.6 H (3.8-10.6) k/uL RBC 2.94 L (4.30-5.90) m/uL Hgb 9.7 L (13.0-17.5) gm/dL Hct 30.4 L (39.0-53.0) % MCV 103.4 H D (80.0-100.0) fL MCHC (31.0-37.0) g/dL Neutrophils # 16.7 H (1.3-7.7) k/uL Neutrophils # (Manual) (1.3-7.7) k/uL Monocytes # 1.4 H (0-1.0) k/uL Metamyelocytes # (Man) (0) k/uL Macrocytosis Sodium (137-145) mmol/L Potassium 6.2 H* (3.5-5.1) mmol/L Chloride (98-107) mmol/L Carbon Dioxide 6 L* (22-30) mmol/L BUN 75 H (9-20) mg/dL Creatinine 10.74 H* (0.66-1.25) mg/dL Glucose 348 H (74-99) mg/dL POC Glucose (mg/dL) (75-99) mg/dL Plasma Lactic Acid Collin 19.7 H* (0.7-2.0) mmol/L Calcium 7.6 L (8.4-10.2) mg/dL Phosphorus 11.8 H* (2.5-4.5) mg/dL AST 79 H (17-59) U/L Alkaline Phosphatase 32 L (38-126) U/L Total Protein 5.4 L (6.3-8.2) g/dL Procalcitonin (0.02-0.09) ng/mL Urine Protein (Negative) Urine Glucose (UA) (Negative) Urine Ketones (Negative) Urine Blood (Negative) Ur Leukocyte Esterase (Negative) Urine RBC (0-5) /hpf Urine WBC (0-5) /hpf Urine Bacteria (None) /hpf Urine Mucus (None) /hpf Urine Yeast (Budding) (None) /hpf 06/09/21 06/09/21 06/09/21 Range/Units 04:21 04:21 06:32 WBC (3.8-10.6) k/uL RBC (4.30-5.90) m/uL Hgb (13.0-17.5) gm/dL Hct (39.0-53.0) % MCV (80.0-100.0) fL MCHC (31.0-37.0) g/dL Neutrophils # (1.3-7.7) k/uL Neutrophils # (Manual) (1.3-7.7) k/uL Monocytes # (0-1.0) k/uL Metamyelocytes # (Man) (0) k/uL Macrocytosis Sodium 148 H (137-145) mmol/L Potassium 5.4 H (3.5-5.1) mmol/L Chloride 97 L (98-107) mmol/L Carbon Dioxide 11 L (22-30) mmol/L BUN 81 H (9-20) mg/dL Creatinine 10.25 H* (0.66-1.25) mg/dL Glucose 375 H (74-99) mg/dL POC Glucose (mg/dL) 382 H (75-99) mg/dL Plasma Lactic Acid Collin 17.3 H* (0.7-2.0) mmol/L Calcium 7.1 L (8.4-10.2) mg/dL Phosphorus 8.4 H (2.5-4.5) mg/dL AST (17-59) U/L Alkaline Phosphatase (38-126) U/L Total Protein (6.3-8.2) g/dL Procalcitonin (0.02-0.09) ng/mL Urine Protein (Negative) Urine Glucose (UA) (Negative) Urine Ketones (Negative) Urine Blood (Negative) Ur Leukocyte Esterase (Negative) Urine RBC (0-5) /hpf Urine WBC (0-5) /hpf Urine Bacteria (None) /hpf Urine Mucus (None) /hpf Urine Yeast (Budding) (None) /hpf 06/09/21 Range/Units 08:24 WBC (3.8-10.6) k/uL RBC (4.30-5.90) m/uL Hgb (13.0-17.5) gm/dL Hct (39.0-53.0) % MCV (80.0-100.0) fL MCHC (31.0-37.0) g/dL Neutrophils # (1.3-7.7) k/uL Neutrophils # (Manual) (1.3-7.7) k/uL Monocytes # (0-1.0) k/uL Metamyelocytes # (Man) (0) k/uL Macrocytosis Sodium (137-145) mmol/L Potassium (3.5-5.1) mmol/L Chloride (98-107) mmol/L Carbon Dioxide (22-30) mmol/L BUN (9-20) mg/dL Creatinine (0.66-1.25) mg/dL Glucose (74-99) mg/dL POC Glucose (mg/dL) (75-99) mg/dL Plasma Lactic Acid Collin 13.8 H* (0.7-2.0) mmol/L Calcium (8.4-10.2) mg/dL Phosphorus (2.5-4.5) mg/dL AST (17-59) U/L Alkaline Phosphatase (38-126) U/L Total Protein (6.3-8.2) g/dL Procalcitonin (0.02-0.09) ng/mL Urine Protein (Negative) Urine Glucose (UA) (Negative) Urine Ketones (Negative) Urine Blood (Negative) Ur Leukocyte Esterase (Negative) Urine RBC (0-5) /hpf Urine WBC (0-5) /hpf Urine Bacteria (None) /hpf Urine Mucus (None) /hpf Urine Yeast (Budding) (None) /hpf Microbiology - Last 24 Hours (Table) 06/08/21 13:57 Gram Stain - Preliminary Aspirate Body Fluid Culture - Preliminary 06/08/21 13:57 Anaerobic Culture - Preliminary Aspirate 06/08/21 10:35 Urine Culture - Preliminary Urine,Clean Catch Assessment and Plan Assessment: Bilateral hydronephrosis Obstructive nephrolithiasis Post renal Acute kidney injury -Admit inpatient, ICU with Pulm consult -Nephrology consult -Urology consult stat for nephroureteral stent completed on 06/08 -Pain control: Dilaudid when necessary with [employer] -Stool softener -Nausea control -IV fluids, hourly urine output -Bicarb drip Diabetes Hypertension Hyperlipidemia -Home medications reviewed and reconciled Patient is full code DVT prophylaxis with heparin 3 times a day
[2021-06-09 12:08] LABS: Glucose,Whole Blood 323 mg/dL (75-99)
[2021-06-09] MEDS: INSULIN DETEMIR (LEVEMIR) 100 UNIT/ML SYR SQ SCH ×2 (12:08→20:41)
[2021-06-09 12:55] LABS: Calcium 6.9 mg/dL (8.4-10.2); Potassium 4.7 mmol/L (3.5-5.1)
[2021-06-09 17:00] LABS: Glucose,Whole Blood 208 mg/dL (75-99)
--- NOTE | 2021-06-09 18:04 | P.PN ---
Subjective Progress Note Date: 06/09/21 Underwent bilateral ureteral stent placement yesterday, for bilateral hydronephrosis. Having low urine output last night, urine output improving this morning. Denies any flank pain Objective - Vital Signs Vital signs: Vital Signs Temp 97.9 F 06/09/21 04:00 Pulse 96 06/09/21 07:00 Resp 16 06/09/21 07:00 BP 132/64 06/09/21 07:00 Pulse Ox 92 L 06/09/21 07:00 Intake & Output 06/08/21 06/09/21 06/09/21 18:59 06:59 18:59 Intake Total 3853.626 2643.199 176.597 Output Total 8 155 75 Balance 3845.626 2488.199 101.597 Weight 97.7 kg 98.2 kg Intake: IV 3750 2020 170 0.9 @20mls/hr 220 20 Dextrose 5% in Water 1, 450 1800 150 000 ml @ 150 mls/hr IV . Q7H40M ANTONIO with Sodium Bicarb (1 Meq/ml) 150 ml Rx#:[id number] Sodium Chloride 0.9% 3, 3000 000 ml @ 999 mls/hr IV . Q3H1M ONE Rx#:[id number] Intake, IV Titration 103.626 623.199 6.597 Amount Norepinephrine 4 mg In 103.626 623.199 Sodium Chloride 0.9% 250 ml @ 0.05 MCG/KG/MIN 17. 714 mls/hr IV .[id number] ANTONIO Rx#:[id number] Norepinephrine 8 mg In 6.597 Sodium Chloride 0.9% 250 ml @ 0.05 MCG/KG/MIN 8. 996 mls/hr IV .Q24H ANTONIO Rx#:[id number] Output: Urine 5 155 75 Estimated Blood Loss 3 Other: Voiding Method Indwelling Catheter Indwelling Catheter - Constitutional General appearance: Present: no acute distress - Gastrointestinal General gastrointestinal: Present: soft. Absent: distended - Psychiatric Psychiatric: Present: A&O x's 3 - Labs CBC & Chem 7: 06/09/21 04:21 06/09/21 12:06 Labs: Abnormal Lab Results - Last 24 Hours (Table) 06/08/21 06/08/21 06/08/21 Range/Units 18:40 18:40 18:40 WBC (3.8-10.6) k/uL RBC (4.30-5.90) m/uL Hgb (13.0-17.5) gm/dL Hct (39.0-53.0) % MCV (80.0-100.0) fL MCHC (31.0-37.0) g/dL Neutrophils # (1.3-7.7) k/uL Neutrophils # (Manual) (1.3-7.7) k/uL Monocytes # (0-1.0) k/uL Metamyelocytes # (Man) (0) k/uL Macrocytosis Sodium 146 H (137-145) mmol/L Potassium 5.9 H (3.5-5.1) mmol/L Chloride (98-107) mmol/L Carbon Dioxide <5 L* (22-30) mmol/L BUN 72 H (9-20) mg/dL Creatinine 10.84 H* (0.66-1.25) mg/dL Glucose 249 H (74-99) mg/dL POC Glucose (mg/dL) (75-99) mg/dL Plasma Lactic Acid Collin 22.7 H* (0.7-2.0) mmol/L Calcium 7.9 L (8.4-10.2) mg/dL Phosphorus 13.2 H* (2.5-4.5) mg/dL AST (17-59) U/L Alkaline Phosphatase (38-126) U/L Total Protein (6.3-8.2) g/dL Procalcitonin 1.57 H (0.02-0.09) ng/mL 06/08/21 06/08/21 06/08/21 Range/Units 18:44 21:55 22:51 WBC (3.8-10.6) k/uL RBC (4.30-5.90) m/uL Hgb (13.0-17.5) gm/dL Hct (39.0-53.0) % MCV (80.0-100.0) fL MCHC (31.0-37.0) g/dL Neutrophils # (1.3-7.7) k/uL Neutrophils # (Manual) (1.3-7.7) k/uL Monocytes # (0-1.0) k/uL Metamyelocytes # (Man) (0) k/uL Macrocytosis Sodium (137-145) mmol/L Potassium (3.5-5.1) mmol/L Chloride (98-107) mmol/L Carbon Dioxide (22-30) mmol/L BUN (9-20) mg/dL Creatinine (0.66-1.25) mg/dL Glucose (74-99) mg/dL POC Glucose (mg/dL) 261 H 374 H (75-99) mg/dL Plasma Lactic Acid Collin 23.5 H* (0.7-2.0) mmol/L Calcium (8.4-10.2) mg/dL Phosphorus (2.5-4.5) mg/dL AST (17-59) U/L Alkaline Phosphatase (38-126) U/L Total Protein (6.3-8.2) g/dL Procalcitonin (0.02-0.09) ng/mL 06/09/21 06/09/21 06/09/21 Range/Units 00:39 00:39 00:39 WBC 30.5 H (3.8-10.6) k/uL RBC 3.36 L (4.30-5.90) m/uL Hgb 11.0 L (13.0-17.5) gm/dL Hct 36.9 L (39.0-53.0) % MCV 109.7 H D (80.0-100.0) fL MCHC 29.8 L (31.0-37.0) g/dL Neutrophils # (1.3-7.7) k/uL Neutrophils # (Manual) 25.30 H (1.3-7.7) k/uL Monocytes # (0-1.0) k/uL Metamyelocytes # (Man) 0.61 H (0) k/uL Macrocytosis Marked A Sodium (137-145) mmol/L Potassium 6.2 H* (3.5-5.1) mmol/L Chloride (98-107) mmol/L Carbon Dioxide 6 L* (22-30) mmol/L BUN 75 H (9-20) mg/dL Creatinine 10.74 H* (0.66-1.25) mg/dL Glucose 348 H (74-99) mg/dL POC Glucose (mg/dL) (75-99) mg/dL Plasma Lactic Acid Collin 19.7 H* (0.7-2.0) mmol/L Calcium 7.6 L (8.4-10.2) mg/dL Phosphorus 11.8 H* (2.5-4.5) mg/dL AST 79 H (17-59) U/L Alkaline Phosphatase 32 L (38-126) U/L Total Protein 5.4 L (6.3-8.2) g/dL Procalcitonin (0.02-0.09) ng/mL 06/09/21 06/09/21 06/09/21 Range/Units 04:21 04:21 04:21 WBC 19.6 H (3.8-10.6) k/uL RBC 2.94 L (4.30-5.90) m/uL Hgb 9.7 L (13.0-17.5) gm/dL Hct 30.4 L (39.0-53.0) % MCV 103.4 H D (80.0-100.0) fL MCHC (31.0-37.0) g/dL Neutrophils # 16.7 H (1.3-7.7) k/uL Neutrophils # (Manual) (1.3-7.7) k/uL Monocytes # 1.4 H (0-1.0) k/uL Metamyelocytes # (Man) (0) k/uL Macrocytosis Sodium 148 H (137-145) mmol/L Potassium 5.4 H (3.5-5.1) mmol/L Chloride 97 L (98-107) mmol/L Carbon Dioxide 11 L (22-30) mmol/L BUN 81 H (9-20) mg/dL Creatinine 10.25 H* (0.66-1.25) mg/dL Glucose 375 H (74-99) mg/dL POC Glucose (mg/dL) (75-99) mg/dL Plasma Lactic Acid Collin 17.3 H* (0.7-2.0) mmol/L Calcium 7.1 L (8.4-10.2) mg/dL Phosphorus 8.4 H (2.5-4.5) mg/dL AST (17-59) U/L Alkaline Phosphatase (38-126) U/L Total Protein (6.3-8.2) g/dL Procalcitonin (0.02-0.09) ng/mL 06/09/21 06/09/21 06/09/21 Range/Units 06:32 08:24 11:42 WBC (3.8-10.6) k/uL RBC (4.30-5.90) m/uL Hgb (13.0-17.5) gm/dL Hct (39.0-53.0) % MCV (80.0-100.0) fL MCHC (31.0-37.0) g/dL Neutrophils # (1.3-7.7) k/uL Neutrophils # (Manual) (1.3-7.7) k/uL Monocytes # (0-1.0) k/uL Metamyelocytes # (Man) (0) k/uL Macrocytosis Sodium (137-145) mmol/L Potassium (3.5-5.1) mmol/L Chloride (98-107) mmol/L Carbon Dioxide (22-30) mmol/L BUN (9-20) mg/dL Creatinine (0.66-1.25) mg/dL Glucose (74-99) mg/dL POC Glucose (mg/dL) 382 H 323 H (75-99) mg/dL Plasma Lactic Acid Collin 13.8 H* (0.7-2.0) mmol/L Calcium (8.4-10.2) mg/dL Phosphorus (2.5-4.5) mg/dL AST (17-59) U/L Alkaline Phosphatase (38-126) U/L Total Protein (6.3-8.2) g/dL Procalcitonin (0.02-0.09) ng/mL 06/09/21 06/09/21 06/09/21 Range/Units 12:06 12:06 15:51 WBC (3.8-10.6) k/uL RBC (4.30-5.90) m/uL Hgb (13.0-17.5) gm/dL Hct (39.0-53.0) % MCV (80.0-100.0) fL MCHC (31.0-37.0) g/dL Neutrophils # (1.3-7.7) k/uL Neutrophils # (Manual) (1.3-7.7) k/uL Monocytes # (0-1.0) k/uL Metamyelocytes # (Man) (0) k/uL Macrocytosis Sodium 147 H (137-145) mmol/L Potassium (3.5-5.1) mmol/L Chloride 95 L (98-107) mmol/L Carbon Dioxide (22-30) mmol/L BUN 91 H (9-20) mg/dL Creatinine 9.72 H* (0.66-1.25) mg/dL Glucose 300 H (74-99) mg/dL POC Glucose (mg/dL) (75-99) mg/dL Plasma Lactic Acid Collin 10.7 H* 7.4 H* (0.7-2.0) mmol/L Calcium 6.9 L (8.4-10.2) mg/dL Phosphorus (2.5-4.5) mg/dL AST (17-59) U/L Alkaline Phosphatase (38-126) U/L Total Protein (6.3-8.2) g/dL Procalcitonin (0.02-0.09) ng/mL 06/09/21 Range/Units 16:58 WBC (3.8-10.6) k/uL RBC (4.30-5.90) m/uL Hgb (13.0-17.5) gm/dL Hct (39.0-53.0) % MCV (80.0-100.0) fL MCHC (31.0-37.0) g/dL Neutrophils # (1.3-7.7) k/uL Neutrophils # (Manual) (1.3-7.7) k/uL Monocytes # (0-1.0) k/uL Metamyelocytes # (Man) (0) k/uL Macrocytosis Sodium (137-145) mmol/L Potassium (3.5-5.1) mmol/L Chloride (98-107) mmol/L Carbon Dioxide (22-30) mmol/L BUN (9-20) mg/dL Creatinine (0.66-1.25) mg/dL Glucose (74-99) mg/dL POC Glucose (mg/dL) 208 H (75-99) mg/dL Plasma Lactic Acid Collin (0.7-2.0) mmol/L Calcium (8.4-10.2) mg/dL Phosphorus (2.5-4.5) mg/dL AST (17-59) U/L Alkaline Phosphatase (38-126) U/L Total Protein (6.3-8.2) g/dL Procalcitonin (0.02-0.09) ng/mL Microbiology - Last 24 Hours (Table) 06/08/21 13:57 Gram Stain - Preliminary Aspirate Body Fluid Culture - Preliminary 06/08/21 13:57 Anaerobic Culture - Preliminary Aspirate 06/08/21 10:35 Urine Culture - Preliminary Urine,Clean Catch Assessment and Plan Assessment: 71-year-old male admitted to the hospital with renal failure, underwent bilateral ureteral stent placement on June 08. Was having low urine output last night UO is improving this morning -Irrigate Danielle PRN if urine output drops or gross hematuria worsens. Urine was light red this morning consistent with recent some placement -We'll continue to trend creatinine -Follow up on urine culture, recommend continuing Cetrixone until cultures are finalized
[2021-06-09 20:36] LABS: Calcium 6.7 mg/dL (8.4-10.2); Potassium 4.2 mmol/L (3.5-5.1)
[2021-06-09] MEDS: SODIUM CHLORIDE 0.45% 1,000 ML IV SCH (21:34)
[2021-06-10] MEDS: SODIUM CHLORIDE 0.45% 1,000 ML IV SCH ×3 (05:19→21:31)
[2021-06-10 06:10] LABS: Basophils % (A) 0 %; Eosinophils # (A) 0.1 k/uL (0-0.7); Eosinophils % (A) 1 %; HCT 28.9 % (39.0-53.0); Lymphocytes # (A) 0.7 k/uL (1.0-4.8); Lymphocytes % (A) 7 %; MCH 32.6 pg (25.0-35.0); MCHC 34.4 g/dL (31.0-37.0); Mean Platelet Volume 7.3; Monocytes # (A) 0.8 k/uL (0-1.0); Monocytes % (A) 9 %; Neutrophils # (A) 7.5 k/uL (1.3-7.7); Neutrophils % (A) 81 %; Platelet Count 180 k/uL (150-450); RBC 3.05 m/uL (4.30-5.90); RDW 13.3 % (11.5-15.5); WBC 9.2 k/uL (3.8-10.6)
[2021-06-10 06:16] LABS: MCV 94.9 fL (80.0-100.0)
[2021-06-10] MEDS: INSULIN ASPART (NovoLOG) 100 UNIT/ML VIAL SQ SCH ×3 (06:55→17:25)
[2021-06-10 06:56] LABS: Glucose,Whole Blood 108 mg/dL (75-99)
[2021-06-10 08:06] LABS: Calcium 6.6 mg/dL (8.4-10.2); Magnesium 1.7 mg/dL (1.6-2.3); Phosphorus 7.3 mg/dL (2.5-4.5); Potassium 3.8 mmol/L (3.5-5.1)
[2021-06-10 08:32] LABS: Glucose,Whole Blood 115 mg/dL (75-99)
--- NOTE | 2021-06-10 09:33 | P.PN ---
Subjective Patient is seen in follow-up for acute kidney injury. Urine output about 100 mL an hour however creatinine 9.16 today. Patient is quite lethargic. Blood pressure stable. Not tolerating oral intake as of yet. Vital signs are stable. General: Lethargic. HEENT: Head exam is unremarkable. LUNGS: Breath sounds decreased. HEART: Rate and Rhythm are regular. ABDOMEN: Soft, no distention. EXTREMITITES: No edema. Objective - Vital Signs Vital signs: Vital Signs Temp 98.5 F 06/10/21 04:00 Pulse 84 06/10/21 07:00 Resp 16 06/10/21 07:00 BP 166/70 06/10/21 07:00 Pulse Ox 95 06/10/21 07:00 Intake & Output 06/09/21 06/10/21 06/10/21 18:59 06:59 18:59 Intake Total 2792.306 1947.521 145 Output Total 1320 1975 175 Balance 1472.306 -27.479 -30 Weight 105.8 kg Intake: IV 2040 690 20 0.9 @20mls/hr 80 D5 at 20 160 240 20 Dextrose 5% in Water 1, 1800 450 000 ml @ 150 mls/hr IV . Q7H40M ANTONIO with Sodium Bicarb (1 Meq/ml) 150 ml Rx#:[id number] Intake, IV Titration 304.221 7488.521 125 Amount Magnesium Sulfate-D5w Pmx 100 1 gm In Dextrose/Water 1 100ml.bag @ 100 mls/hr IVPB Q1H ANTONIO Rx#: [id number] Norepinephrine 8 mg In 112.306 132.521 Sodium Chloride 0.9% 250 ml @ 0.05 MCG/KG/MIN 8. 996 mls/hr IV .Q24H ANTONIO Rx#:[id number] Sodium Chloride 0.45% 1, 1125 125 000 ml @ 125 mls/hr IV . Q8H ANTONIO Rx#:[id number] cefTRIAXone 1 gm In 100 Sodium Chloride 0.9% 50 ml @ 100 mls/hr IVPB Q24HR ANTONIO Rx#:[id number] Oral 440 Output: Urine 1320 1975 175 Other: Voiding Method Indwelling Catheter Indwelling Catheter - Labs CBC & Chem 7: 06/10/21 04:33 06/10/21 04:33 Labs: Abnormal Lab Results - Last 24 Hours (Table) 06/09/21 06/09/21 06/09/21 Range/Units 08:24 11:42 12:06 RBC (4.30-5.90) m/uL Hgb (13.0-17.5) gm/dL Hct (39.0-53.0) % Lymphocytes # (1.0-4.8) k/uL Sodium 147 H (137-145) mmol/L Chloride 95 L (98-107) mmol/L Carbon Dioxide (22-30) mmol/L BUN 91 H (9-20) mg/dL Creatinine 9.72 H* (0.66-1.25) mg/dL Glucose 300 H (74-99) mg/dL POC Glucose (mg/dL) 323 H (75-99) mg/dL Plasma Lactic Acid Collin 13.8 H* (0.7-2.0) mmol/L Calcium 6.9 L (8.4-10.2) mg/dL Phosphorus (2.5-4.5) mg/dL 06/09/21 06/09/21 06/09/21 Range/Units 12:06 15:51 16:58 RBC (4.30-5.90) m/uL Hgb (13.0-17.5) gm/dL Hct (39.0-53.0) % Lymphocytes # (1.0-4.8) k/uL Sodium (137-145) mmol/L Chloride (98-107) mmol/L Carbon Dioxide (22-30) mmol/L BUN (9-20) mg/dL Creatinine (0.66-1.25) mg/dL Glucose (74-99) mg/dL POC Glucose (mg/dL) 208 H (75-99) mg/dL Plasma Lactic Acid Collin 10.7 H* 7.4 H* (0.7-2.0) mmol/L Calcium (8.4-10.2) mg/dL Phosphorus (2.5-4.5) mg/dL 06/09/21 06/10/21 06/10/21 Range/Units 19:40 04:33 04:33 RBC 3.05 L (4.30-5.90) m/uL Hgb 10.0 L (13.0-17.5) gm/dL Hct 28.9 L (39.0-53.0) % Lymphocytes # 0.7 L (1.0-4.8) k/uL Sodium 146 H 146 H (137-145) mmol/L Chloride 94 L 94 L (98-107) mmol/L Carbon Dioxide 34 H (22-30) mmol/L BUN 96 H 95 H (9-20) mg/dL Creatinine 9.34 H* 9.16 H* (0.66-1.25) mg/dL Glucose 174 H (74-99) mg/dL POC Glucose (mg/dL) (75-99) mg/dL Plasma Lactic Acid Collin (0.7-2.0) mmol/L Calcium 6.7 L 6.6 L (8.4-10.2) mg/dL Phosphorus 7.3 H (2.5-4.5) mg/dL 06/10/21 06/10/21 Range/Units 06:54 08:30 RBC (4.30-5.90) m/uL Hgb (13.0-17.5) gm/dL Hct (39.0-53.0) % Lymphocytes # (1.0-4.8) k/uL Sodium (137-145) mmol/L Chloride (98-107) mmol/L Carbon Dioxide (22-30) mmol/L BUN (9-20) mg/dL Creatinine (0.66-1.25) mg/dL Glucose (74-99) mg/dL POC Glucose (mg/dL) 108 H 115 H (75-99) mg/dL Plasma Lactic Acid Collin (0.7-2.0) mmol/L Calcium (8.4-10.2) mg/dL Phosphorus (2.5-4.5) mg/dL Microbiology - Last 24 Hours (Table) 06/08/21 13:57 Gram Stain - Preliminary Aspirate Body Fluid Culture - Preliminary 06/08/21 10:35 Urine Culture - Final Urine,Clean Catch 06/08/21 18:40 Blood Culture - Preliminary Blood No Growth after 24 hours Assessment and Plan Plan: Assessment: 1. Acute kidney injury secondary to ATN secondary to obstructive uropathy and hypotension. Creatinine was 11.6 on admission and is 9.16 this morning. Patient's creatinine the last 2 years has been in the range of 1.6-2. 2. Bilateral hydronephrosis with nephrolithiasis status post ureteral stent placement on June 08. 3. Hyperkalemia secondary to acute kidney injury, metabolic acidosis and lisinopril. Improved. 4. Metabolic acidosis secondary to acute kidney injury and lactic acidosis. He was also on metformin outpatient. Status post bicarb drip. Resolved. 5. Diabetes mellitus. 6. Hypernatremia from lack of oral water intake. Stable. Plan: Maintain half-normal saline at 1 25 mL an hour. Encourage oral intake, including free water. Continue to monitor renal function and urine output. Due to no significant improvement in renal function and concern for uremia, init iate renal replacement therapy. Plan for first treatment of hemodialysis today and another treatment tomorrow. Monitor for renal recovery.
--- NOTE | 2021-06-10 09:58 | P.PN ---
Subjective Progress Note Date: 06/10/21 Pulmonary/critical care consultation dated 06/08/2021. 71-year-old male, who presents to the emergency department at 0652 in the morning on June 08. He was brought in by his . This patient for the last week to 10 days has not been feeling well. He's had significant weakness, fatigue, nausea, and vomiting. According to his , the patient became very weak, and really could not balance himself or walk properly. For that reason, she brought in to be evaluated. In addition, the patient has not urinated in the last 24 hours. He had some mental status changes and obviously was very concerned. We were asked to see the patient for possible admission to the intensive care unit. The patient was hypotensive. In addition, the patient had developed acute kidney injury/acute renal failure, and was found on CAT scan to have kidney stones. He may need a stent placement according to the ER physician. His medical history includes asthma, diabetes, hyperlipidemia, hypertension, kidney stones, umbilical hernia, and recent coronavirus infection. The patient is a lifelong nonsmoker. There is a family history of deep venous thrombosis. White count was 15.8, hemoglobin 11.5, hematocrit 37.2, platelet count 219,000. Sodium 150, potassium 5.1, chlorides 101, CO2 less than 5, anion gap was 38, BUN 72, and creatinine 11.21. Lactic acid was 14.6. CT of the abdomen and pelvis showed new mild right-sided hydronephrosis and right perinephritic fat stranding with interval passage of a small lower pole right renal calculi into the bladder. There is persistent moderate left-sided hydro nephrosis due to obstructing distal ureter calculi. It should also be noted that the patient was here about a week ago, hydrated in the emergency department, and discharged home. The patient is to go to the operating room for bilateral stent placement. Progress note dated 06/09/2021. 71-year-old white male seen yesterday in the emergency department. The patient went to the operating room yesterday, had bilateral ureteral stents. He was successfully extubated on June 08. Today's postop day #1. Currently, he's on 3 L nasal cannula, IV Rocephin, and an IV of D5W with 3 ampules of sodium bicarbonate at 1 50 mL an hour. The patient is getting saline at 20 mL now which I told the nurse to discontinue. In addition, the patient is on norepinephrine at 9 mcg/m. Clinically he appears to be a bit sleepy but does arouse and is appropriate. White count is 19.6, hemoglobin 9.7, hematocrit 30.4, and platelet count 215,000 sodium is 148, potassium 5.4, chlorides 97, CO2 11, anion gap is 4, BUN is 81, creatinine is 10.25. Plasma lactic acid is 13.8. Magnesium 1.6. The patient is seen today 06/10/2021 in follow-up in the intensive care unit. He is currently sitting up in bed. Arouses to verbal stimuli but drowsy. Somewhat slow to respond. He is maintaining O2 saturations in the 90s on 2 L/m per nasal cannula. He has 0.45% normal saline running at 125 ML's per hour. He is still requiring norepinephrine at 8.4 mcg/m. He is on antibiotics in the form of ceftriaxone. Urine culture reveals no growth. Blood cultures reveal no growth to date. White count 9.2. Hemoglobin 10.0. Platelets 180. Sodium 146. Potassium 3.8. Bicarb 34. Creatinine 9.16. He is making urine at about 100 ML's per hour. The plan is for possible renal replacement therapy today. Objective - Vital Signs Vital signs: Vital Signs Temp 98.5 F 06/10/21 04:00 Pulse 84 06/10/21 07:00 Resp 16 06/10/21 07:00 BP 166/70 06/10/21 07:00 Pulse Ox 95 06/10/21 07:00 Intake & Output 06/09/21 06/10/21 06/10/21 18:59 06:59 18:59 Intake Total 2792.306 1947.521 145 Output Total 1320 1975 175 Balance 1472.306 -27.479 -30 Weight 105.8 kg Intake: IV 2040 690 20 0.9 @20mls/hr 80 D5 at 20 160 240 20 Dextrose 5% in Water 1, 1800 450 000 ml @ 150 mls/hr IV . Q7H40M [facility] with Sodium Bicarb (1 Meq/ml) 150 ml Rx#:[id number] Intake, IV Titration 395.351 4356.521 125 Amount Magnesium Sulfate-D5w Pmx 100 1 gm In Dextrose/Water 1 100ml.bag @ 100 mls/hr IVPB Q1H [facility] Rx#: [id number] Norepinephrine 8 mg In 112.306 132.521 Sodium Chloride 0.9% 250 ml @ 0.05 MCG/KG/MIN 8. 996 mls/hr IV .Q24H [facility] Rx#:[id number] Sodium Chloride 0.45% 1, 1125 125 000 ml @ 125 mls/hr IV . Q8H [facility] Rx#:[id number] cefTRIAXone 1 gm In 100 Sodium Chloride 0.9% 50 ml @ 100 mls/hr IVPB Q24HR [facility] Rx#:[id number] Oral 440 Output: Urine 1320 1975 175 Other: Voiding Method Indwelling Catheter Indwelling Catheter - Exam GENERAL EXAM: Arousable but drowsy 71-year-old male patient, lethargic, on 2 L nasal cannula, fairly comfortable in no apparent distress. HEAD: Normocephalic. EYES: Normal reaction of pupils, equal size. NOSE: Clear with pink turbinates. THROAT: No erythema or exudates. NECK: No masses, no JVD. CHEST: No chest wall deformity. LUNGS: Equal air entry with faint crackles in the posterior bases. CVS: S1 and S2 normal with no audible murmur, regular rhythm. ABDOMEN: No hepatosplenomegaly, normal bowel sounds, no guarding or rigidity. SPINE: No scoliosis or deformity SKIN: No rashes CENTRAL NERVOUS SYSTEM: No focal deficits, tone is normal in all 4 extremities. EXTREMITIES: There is no peripheral edema. No clubbing, no cyanosis. Peripheral pulses are intact. - Labs CBC & Chem 7: 06/10/21 04:33 06/10/21 04:33 Labs: Abnormal Lab Results - Last 24 Hours (Table) 06/09/21 06/09/21 06/09/21 Range/Units 08:24 11:42 12:06 RBC (4.30-5.90) m/uL Hgb (13.0-17.5) gm/dL Hct (39.0-53.0) % Lymphocytes # (1.0-4.8) k/uL Sodium 147 H (137-145) mmol/L Chloride 95 L (98-107) mmol/L Carbon Dioxide (22-30) mmol/L BUN 91 H (9-20) mg/dL Creatinine 9.72 H* (0.66-1.25) mg/dL Glucose 300 H (74-99) mg/dL POC Glucose (mg/dL) 323 H (75-99) mg/dL Plasma Lactic Acid Collin 13.8 H* (0.7-2.0) mmol/L Calcium 6.9 L (8.4-10.2) mg/dL Phosphorus (2.5-4.5) mg/dL 06/09/21 06/09/21 06/09/21 Range/Units 12:06 15:51 16:58 RBC (4.30-5.90) m/uL Hgb (13.0-17.5) gm/dL Hct (39.0-53.0) % Lymphocytes # (1.0-4.8) k/uL Sodium (137-145) mmol/L Chloride (98-107) mmol/L Carbon Dioxide (22-30) mmol/L BUN (9-20) mg/dL Creatinine (0.66-1.25) mg/dL Glucose (74-99) mg/dL POC Glucose (mg/dL) 208 H (75-99) mg/dL Plasma Lactic Acid Collin 10.7 H* 7.4 H* (0.7-2.0) mmol/L Calcium (8.4-10.2) mg/dL Phosphorus (2.5-4.5) mg/dL 06/09/21 06/10/21 06/10/21 Range/Units 19:40 04:33 04:33 RBC 3.05 L (4.30-5.90) m/uL Hgb 10.0 L (13.0-17.5) gm/dL Hct 28.9 L (39.0-53.0) % Lymphocytes # 0.7 L (1.0-4.8) k/uL Sodium 146 H 146 H (137-145) mmol/L Chloride 94 L 94 L (98-107) mmol/L Carbon Dioxide 34 H (22-30) mmol/L BUN 96 H 95 H (9-20) mg/dL Creatinine 9.34 H* 9.16 H* (0.66-1.25) mg/dL Glucose 174 H (74-99) mg/dL POC Glucose (mg/dL) (75-99) mg/dL Plasma Lactic Acid Collin (0.7-2.0) mmol/L Calcium 6.7 L 6.6 L (8.4-10.2) mg/dL Phosphorus 7.3 H (2.5-4.5) mg/dL 06/10/21 06/10/21 Range/Units 06:54 08:30 RBC (4.30-5.90) m/uL Hgb (13.0-17.5) gm/dL Hct (39.0-53.0) % Lymphocytes # (1.0-4.8) k/uL Sodium (137-145) mmol/L Chloride (98-107) mmol/L Carbon Dioxide (22-30) mmol/L BUN (9-20) mg/dL Creatinine (0.66-1.25) mg/dL Glucose (74-99) mg/dL POC Glucose (mg/dL) 108 H 115 H (75-99) mg/dL Plasma Lactic Acid Collin (0.7-2.0) mmol/L Calcium (8.4-10.2) mg/dL Phosphorus (2.5-4.5) mg/dL Microbiology - Last 24 Hours (Table) 06/08/21 13:57 Gram Stain - Preliminary Aspirate Body Fluid Culture - Preliminary 06/08/21 10:35 Urine Culture - Final Urine,Clean Catch 06/08/21 18:40 Blood Culture - Preliminary Blood No Growth after 24 hours Assessment and Plan Assessment: 1 Acute kidney injury, secondary to bilateral renal calculi, and bilateral hydronephrosis. No significant improvement, plan is for renal replacement therapy today 2 Routine postoperative ventilator management, with extubation successfully on 06/08/2021. Currently on 2 L nasal cannula 3 Postop day #2, status post bilateral ureteral stents. 4 Severe anion gap metabolic acidosis, secondary to acute kidney injury/acute renal failure. 5 Hypotension secondary to sepsis, currently on norepinephrine 6 Acute hyperkalemia improved. 7 Metabolic/septic encephalopathy. 8 Anuria/oliguria. 9 History of diabetes mellitus. 10 History of hyperlipidemia. 11 History of hypertension. 12 Prior history of kidney stones. 13 History of asthma. Plan: The patient was seen and evaluated by Dr. Nice Currently stable from the pulmonary standpoint Plan is for renal replacement therapy to start possibly today Status post bilateral ureteral stents Continued on ceftriaxone Titrate the FiO2 as tolerated Titrate the pressors as tolerated We will continue to follow and make further recommendations based on his clinical status I, the cosigning physician, performed a history & physical examination of the patient. Lungs sounds faint crackles in the posterior bases. Maintaining good O2 saturations in the 90s on 2 L/m per nasal cannula I discussed the assessment and plan of care with my nurse practitioner, Regina Powell. I attest to the above note as dictated by her.
--- NOTE | 2021-06-10 10:59 | P.PN ---
Subjective Progress Note Date: 06/10/21 Underwent bilateral ureteral stent placement on 06/08 , for bilateral hydronephrosis. UO improving, creatinine still elevated at 9.16. Denies any flank pain. urine is clearing this am. Objective - Vital Signs Vital signs: Vital Signs Temp 98.5 F 06/10/21 04:00 Pulse 84 06/10/21 07:00 Resp 16 06/10/21 07:00 BP 166/70 06/10/21 07:00 Pulse Ox 95 06/10/21 07:00 Intake & Output 06/09/21 06/10/21 06/10/21 18:59 06:59 18:59 Intake Total 2792.306 1947.521 341.718 Output Total 1320 1975 175 Balance 1472.306 -27.479 166.718 Weight 105.8 kg Intake: IV 2040 690 20 0.9 @20mls/hr 80 D5 at 20 160 240 20 Dextrose 5% in Water 1, 1800 450 000 ml @ 150 mls/hr IV . Q7H40M [facility] with Sodium Bicarb (1 Meq/ml) 150 ml Rx#:[id number] Intake, IV Titration 852.129 9784.521 321.718 Amount Magnesium Sulfate-D5w Pmx 100 1 gm In Dextrose/Water 1 100ml.bag @ 100 mls/hr IVPB Q1H [facility] Rx#: [id number] Norepinephrine 8 mg In 112.306 132.521 196.718 Sodium Chloride 0.9% 250 ml @ 0.05 MCG/KG/MIN 8. 996 mls/hr IV .Q24H [facility] Rx#:[id number] Sodium Chloride 0.45% 1, 1125 125 000 ml @ 125 mls/hr IV . Q8H [facility] Rx#:[id number] cefTRIAXone 1 gm In 100 Sodium Chloride 0.9% 50 ml @ 100 mls/hr IVPB Q24HR [facility] Rx#:[id number] Oral 440 Output: Urine 1320 1975 175 Other: Voiding Method Indwelling Catheter Indwelling Catheter - Constitutional General appearance: Present: no acute distress - Genitourinary Genitourinary Comment(s): urine light red - Psychiatric Psychiatric: Present: A&O x's 3 - Labs CBC & Chem 7: 06/10/21 04:33 06/10/21 04:33 Labs: Abnormal Lab Results - Last 24 Hours (Table) 06/09/21 06/09/21 06/09/21 Range/Units 11:42 12:06 12:06 RBC (4.30-5.90) m/uL Hgb (13.0-17.5) gm/dL Hct (39.0-53.0) % Lymphocytes # (1.0-4.8) k/uL Sodium 147 H (137-145) mmol/L Chloride 95 L (98-107) mmol/L Carbon Dioxide (22-30) mmol/L BUN 91 H (9-20) mg/dL Creatinine 9.72 H* (0.66-1.25) mg/dL Glucose 300 H (74-99) mg/dL POC Glucose (mg/dL) 323 H (75-99) mg/dL Plasma Lactic Acid Collin 10.7 H* (0.7-2.0) mmol/L Calcium 6.9 L (8.4-10.2) mg/dL Phosphorus (2.5-4.5) mg/dL 06/09/21 06/09/21 06/09/21 Range/Units 15:51 16:58 19:40 RBC (4.30-5.90) m/uL Hgb (13.0-17.5) gm/dL Hct (39.0-53.0) % Lymphocytes # (1.0-4.8) k/uL Sodium 146 H (137-145) mmol/L Chloride 94 L (98-107) mmol/L Carbon Dioxide (22-30) mmol/L BUN 96 H (9-20) mg/dL Creatinine 9.34 H* (0.66-1.25) mg/dL Glucose 174 H (74-99) mg/dL POC Glucose (mg/dL) 208 H (75-99) mg/dL Plasma Lactic Acid Collin 7.4 H* (0.7-2.0) mmol/L Calcium 6.7 L (8.4-10.2) mg/dL Phosphorus (2.5-4.5) mg/dL 06/10/21 06/10/21 06/10/21 Range/Units 04:33 04:33 06:54 RBC 3.05 L (4.30-5.90) m/uL Hgb 10.0 L (13.0-17.5) gm/dL Hct 28.9 L (39.0-53.0) % Lymphocytes # 0.7 L (1.0-4.8) k/uL Sodium 146 H (137-145) mmol/L Chloride 94 L (98-107) mmol/L Carbon Dioxide 34 H (22-30) mmol/L BUN 95 H (9-20) mg/dL Creatinine 9.16 H* (0.66-1.25) mg/dL Glucose (74-99) mg/dL POC Glucose (mg/dL) 108 H (75-99) mg/dL Plasma Lactic Acid Collin (0.7-2.0) mmol/L Calcium 6.6 L (8.4-10.2) mg/dL Phosphorus 7.3 H (2.5-4.5) mg/dL 06/10/21 Range/Units 08:30 RBC (4.30-5.90) m/uL Hgb (13.0-17.5) gm/dL Hct (39.0-53.0) % Lymphocytes # (1.0-4.8) k/uL Sodium (137-145) mmol/L Chloride (98-107) mmol/L Carbon Dioxide (22-30) mmol/L BUN (9-20) mg/dL Creatinine (0.66-1.25) mg/dL Glucose (74-99) mg/dL POC Glucose (mg/dL) 115 H (75-99) mg/dL Plasma Lactic Acid Collin (0.7-2.0) mmol/L Calcium (8.4-10.2) mg/dL Phosphorus (2.5-4.5) mg/dL Microbiology - Last 24 Hours (Table) 06/08/21 13:57 Gram Stain - Preliminary Aspirate Body Fluid Culture - Preliminary 06/08/21 10:35 Urine Culture - Final Urine,Clean Catch 06/08/21 18:40 Blood Culture - Preliminary Blood No Growth after 24 hours Assessment and Plan Assessment: 71-year-old male admitted to the hospital with renal failure, underwent bilateral ureteral stent placement on June 08. urine output improving, creatinine still elevated at 9.16 -Irrigate Danielle PRN if urine output drops or gross hematuria worsens. Urine was blood tinged this morning consistent with recent some placement -We'll continue to trend creatinine -Follow up on urine culture, recommend continuing Cetrixone until cultures are finalized
[2021-06-10 12:00] LABS: Potassium 3.8 mmol/L (3.5-5.1)
[2021-06-10 12:04] LABS: Calcium 6.2 mg/dL (8.4-10.2)
[2021-06-10] MEDS: CALCIUM ACETATE 667 MG TAB PO SCH ×2 (12:36→17:25)
--- NOTE | 2021-06-10 13:25 | P.PN ---
Subjective Progress Note Date: 06/10/21 Patient is alert and oriented 4, groggy, slow to respond. He does have asterixis on exam with increasing BUN, slowly recovering creatinine, increased urine output. Plans for dialysis today secondary to uremic signs Objective - Vital Signs Vital signs: Vital Signs Temp 98.5 F 06/10/21 08:00 Pulse 86 06/10/21 11:30 Resp 15 06/10/21 11:30 BP 124/60 06/10/21 11:30 Pulse Ox 96 06/10/21 11:30 Intake & Output 06/09/21 06/10/21 06/10/21 18:59 06:59 18:59 Intake Total 2792.306 1947.521 356.862 Output Total 1320 1975 175 Balance 1472.306 -27.479 181.862 Weight 105.8 kg Intake: IV 2040 690 20 0.9 @20mls/hr 80 D5 at 20 160 240 20 Dextrose 5% in Water 1, 1800 450 000 ml @ 150 mls/hr IV . Q7H40M [facility] with Sodium Bicarb (1 Meq/ml) 150 ml Rx#:[id number] Intake, IV Titration 153.765 0035.521 336.862 Amount Magnesium Sulfate-D5w Pmx 100 1 gm In Dextrose/Water 1 100ml.bag @ 100 mls/hr IVPB Q1H [facility] Rx#: [id number] Norepinephrine 8 mg In 112.306 132.521 211.862 Sodium Chloride 0.9% 250 ml @ 0.05 MCG/KG/MIN 8. 996 mls/hr IV .Q24H [facility] Rx#:[id number] Sodium Chloride 0.45% 1, 1125 125 000 ml @ 125 mls/hr IV . Q8H [facility] Rx#:[id number] cefTRIAXone 1 gm In 100 Sodium Chloride 0.9% 50 ml @ 100 mls/hr IVPB Q24HR [facility] Rx#:[id number] Oral 440 Output: Urine 1320 1975 175 Other: Voiding Method Indwelling Catheter Indwelling Catheter - Exam Gen: awake, alert and oriented 2 HEENT: normocephalic, atraumatic, good hearing acuity, moist mucous membranes Resp: good air exchange, breathing comfortably with no accessory muscle use CVS: good distal perfusion x 4, GI: soft, NTTP, ND : no SPT, bilateral CVAT, carey catheter is present, grossly hemorrhagic MSK: no pitting edema, no clubbing Neuro: non-focal, moving all extremities Psych: cooperative, euthymic mood - Labs CBC & Chem 7: 06/10/21 04:33 06/10/21 10:50 Labs: Abnormal Lab Results - Last 24 Hours (Table) 06/09/21 06/09/21 06/09/21 Range/Units 12:06 15:51 16:58 RBC (4.30-5.90) m/uL Hgb (13.0-17.5) gm/dL Hct (39.0-53.0) % Lymphocytes # (1.0-4.8) k/uL Sodium 147 H (137-145) mmol/L Chloride 95 L (98-107) mmol/L Carbon Dioxide (22-30) mmol/L BUN 91 H (9-20) mg/dL Creatinine 9.72 H* (0.66-1.25) mg/dL Glucose 300 H (74-99) mg/dL POC Glucose (mg/dL) 208 H (75-99) mg/dL Plasma Lactic Acid Collin 7.4 H* (0.7-2.0) mmol/L Calcium 6.9 L (8.4-10.2) mg/dL Phosphorus (2.5-4.5) mg/dL 06/09/21 06/10/21 06/10/21 Range/Units 19:40 04:33 04:33 RBC 3.05 L (4.30-5.90) m/uL Hgb 10.0 L (13.0-17.5) gm/dL Hct 28.9 L (39.0-53.0) % Lymphocytes # 0.7 L (1.0-4.8) k/uL Sodium 146 H 146 H (137-145) mmol/L Chloride 94 L 94 L (98-107) mmol/L Carbon Dioxide 34 H (22-30) mmol/L BUN 96 H 95 H (9-20) mg/dL Creatinine 9.34 H* 9.16 H* (0.66-1.25) mg/dL Glucose 174 H (74-99) mg/dL POC Glucose (mg/dL) (75-99) mg/dL Plasma Lactic Acid Collin (0.7-2.0) mmol/L Calcium 6.7 L 6.6 L (8.4-10.2) mg/dL Phosphorus 7.3 H (2.5-4.5) mg/dL 06/10/21 06/10/21 06/10/21 Range/Units 06:54 08:30 10:50 RBC (4.30-5.90) m/uL Hgb (13.0-17.5) gm/dL Hct (39.0-53.0) % Lymphocytes # (1.0-4.8) k/uL Sodium (137-145) mmol/L Chloride 93 L (98-107) mmol/L Carbon Dioxide 37 H (22-30) mmol/L BUN 95 H (9-20) mg/dL Creatinine 8.99 H* (0.66-1.25) mg/dL Glucose 122 H (74-99) mg/dL POC Glucose (mg/dL) 108 H 115 H (75-99) mg/dL Plasma Lactic Acid Collin (0.7-2.0) mmol/L Calcium 6.2 L* (8.4-10.2) mg/dL Phosphorus (2.5-4.5) mg/dL Microbiology - Last 24 Hours (Table) 06/08/21 13:57 Gram Stain - Preliminary Aspirate Body Fluid Culture - Preliminary 06/08/21 10:35 Urine Culture - Final Urine,Clean Catch 06/08/21 18:40 Blood Culture - Preliminary Blood No Growth after 24 hours Assessment and Plan Assessment: Bilateral hydronephrosis Obstructive nephrolithiasis Post renal Acute kidney injury -Admit inpatient, ICU with Pulm consult -Nephrology consult; hemodialysis today -Urology consult stat for nephroureteral stent completed on 06/08 -Pain control: Dilaudid when necessary with [employer] -Stool softener -Nausea control -IV fluids, hourly urine output -Bicarb drip discontinued; -Started on calcium acetate Diabetes Hypertension Hyperlipidemia -Home medications reviewed and reconciled Patient is full code DVT prophylaxis with heparin 3 times a day
[2021-06-10] MEDS: NOREPINEPHRINE 8 MG in SODIUM CHLORIDE 0.9% 250 ML IV SCH (15:03)
[2021-06-10 16:44] LABS: Glucose,Whole Blood 175 mg/dL (75-99)
--- NOTE | 2021-06-10 19:41 | OP ---
OPERATIVE REPORT PREOPERATIVE DIAGNOSIS: Acute on chronic renal failure. POSTOPERATIVE DIAGNOSIS: Acute on chronic renal failure. PROCEDURE PERFORMED: Ultrasound-guided dialysis catheter dialysis catheter placement via right femoral approach. PROCEDURE DESCRIPTION: The patient was seen in his room. Right groin was prepped and draped in usual sterile manner. Lidocaine 1% plain was infiltrated. Ultrasound-guided micropuncture was introduced into the right femoral vein. Then we passed a micro guidewire and 4-Khmer sheath on top of the guidewire. After that we passed a regular guide without any resistance. Then we passed a dilator and then placed a dialysis catheter on top of the guidewire. Guidewire was removed, flushed with heparin saline and hep-locked and secured with 3-0 nylon. Dressing was applied. Patient tolerated the procedure well. ROMIE / JASSONN: [id number] /
[2021-06-10] MEDS: INSULIN DETEMIR (LEVEMIR) 100 UNIT/ML SYR SQ SCH (21:31)
[2021-06-11] MEDS: SODIUM CHLORIDE 0.45% 1,000 ML IV SCH (05:10)
--- NOTE | 2021-06-11 06:41 | CDI ---
Documentation Clarification Form Date: 06/11/2021 06:18:47 AM From: Renetta Renee RN, CCDS Admit Date: 06/08/2021 10:46:00 AM Patient Name: Riccardo Powell Visit Number: [id number] ATTENTION: The Clinical Documentation Specialists (CDI) and [facility] Coding Staff appreciate your assistance in clarifying documentation. Please respond to the clarification below the line at the bottom and electronically sign. The CDI & [facility] Coding staff will review the response and follow-up if needed. Please note: Queries are made part of the Legal Health Record. If you have any questions, please contact the author of this message via ITS. Dr. Rakan Vides The patient presented with the following clinical indicators. Additional clarification regarding the etiology/cause of the clinical indicators is requested. History/Risk Factors: DM2, HTN, HLD, Kidney stone, asthma, Current bilateral renal calculi with bilateral hydronephrosis Clinical Indicators: 06/10 Pulmonary Progress note: Hypotension secondary to sepsis, currently on norepinephrine." 06/08-06/10 H&P and Attending Progress Notes: Bilateral hydronephrosis, obstructive nephrolithiasis, JONI." End Organ Damage: JONI with ATN with nephrology consult and HD cath insertion for HD, Metabolic /septic encephalopathy (per Pulmonary) Hypotension on norepinephrine (per pulmonary) WBC: 15.8/30.5/19.6/9.2 Lactic acid: 14.6/>24/22.7/23.5/19.7/17.3/13.8/10.7/7.4 06/08 Blood cultures: Negative 06/08 658 Admission Vital signs: Temp 97, HR 79, RR 20, B/P 114/54, spo2 99% RA Treatment: 06/08 Cystoscopy with bilateral ureteral stent placement 06/08 2 Gm Kefzol IVPB party demonstrator to OR, 2 Gm Rocephin IVP 06/09 Ceftriaxone 1 gm IVPB Q 24 hrs. 06/08 Levophed Gtt titrate for B/P 06/08 5L 0.9% NS IVF Bolus followed by 125 cc/hr. In your professional opinion, please clarify if these findings signify one of the following conditions: [ ] Sepsis with Severe Sepsis and Septic Shock POA [ ] Sepsis with Severe Sepsis and Septic Shock Not POA [ ] Other, please specify [ ] Unable to determine SIRS Criteria: 2 or more of the following may indicate SIRS -Temperature < 96.8F (36C) or > 101.0F (38.3C) -Heart Rate > 90 bpm -Respiratory Rate > 20 breaths/min or PaCO2 < 32 mmHg -White Blood Cell Count > 12,000 or < 4,000 cells/mm3 or > 10% bands (Template Last Reviewed: September 2020) Severe Sepsis and Septic Shock present on arrival MTDD
[2021-06-11] MEDS: INSULIN ASPART (NovoLOG) 100 UNIT/ML VIAL SQ SCH ×3 (06:56→19:46)
[2021-06-11 06:57] LABS: Glucose,Whole Blood 134 mg/dL (75-99)
[2021-06-11] MEDS: CALCIUM ACETATE 667 MG TAB PO SCH ×3 (06:58→19:46)
[2021-06-11 07:12] LABS: Basophils % (A) 0 %; Eosinophils # (A) 0.2 k/uL (0-0.7); Eosinophils % (A) 4 %; HCT 26.5 % (39.0-53.0); HGB 8.7 gm/dL (13.0-17.5); Lymphocytes # (A) 0.5 k/uL (1.0-4.8); Lymphocytes % (A) 9 %; MCH 32.3 pg (25.0-35.0); MCHC 32.8 g/dL (31.0-37.0); MCV 98.4 fL (80.0-100.0); Mean Platelet Volume 7.5; Monocytes # (A) 0.4 k/uL (0-1.0); Monocytes % (A) 7 %; Neutrophils # (A) 4.6 k/uL (1.3-7.7); Neutrophils % (A) 79 %; Platelet Count 106 k/uL (150-450); RDW 12.2 % (11.5-15.5); WBC 5.9 k/uL (3.8-10.6)
[2021-06-11 07:46] LABS: Potassium 3.2 mmol/L (3.5-5.1)
[2021-06-11] MEDS ORDERED: Potassium Replacement Protocol 1 EACH MISC MISCELLANE PRN (08:23)
--- NOTE | 2021-06-11 08:31 | P.PN ---
Subjective Progress Note Date: 06/11/21 Pulmonary/critical care consultation dated 06/08/2021. 71-year-old male, who presents to the emergency department at 0652 in the morning on June 08. He was brought in by his . This patient for the last week to 10 days has not been feeling well. He's had significant weakness, fatigue, nausea, and vomiting. According to his , the patient became very weak, and really could not balance himself or walk properly. For that reason, she brought in to be evaluated. In addition, the patient has not urinated in the last 24 hours. He had some mental status changes and obviously was very concerned. We were asked to see the patient for possible admission to the intensive care unit. The patient was hypotensive. In addition, the patient had developed acute kidney injury/acute renal failure, and was found on CAT scan to have kidney stones. He may need a stent placement according to the ER physician. His medical history includes asthma, diabetes, hyperlipidemia, hypertension, kidney stones, umbilical hernia, and recent coronavirus infection. The patient is a lifelong nonsmoker. There is a family history of deep venous thrombosis. White count was 15.8, hemoglobin 11.5, hematocrit 37.2, platelet count 219,000. Sodium 150, potassium 5.1, chlorides 101, CO2 less than 5, anion gap was 38, BUN 72, and creatinine 11.21. Lactic acid was 14.6. CT of the abdomen and pelvis showed new mild right-sided hydronephrosis and right perinephritic fat stranding with interval passage of a small lower pole right renal calculi into the bladder. There is persistent moderate left-sided hydro nephrosis due to obstructing distal ureter calculi. It should also be noted that the patient was here about a week ago, hydrated in the emergency department, and discharged home. The patient is to go to the operating room for bilateral stent placement. Progress note dated 06/09/2021. 71-year-old white male seen yesterday in the emergency department. The patient went to the operating room yesterday, had bilateral ureteral stents. He was successfully extubated on June 08. Today's postop day #1. Currently, he's on 3 L nasal cannula, IV Rocephin, and an IV of D5W with 3 ampules of sodium bicarbonate at 1 50 mL an hour. The patient is getting saline at 20 mL now which I told the nurse to discontinue. In addition, the patient is on norepinephrine at 9 mcg/m. Clinically he appears to be a bit sleepy but does arouse and is appropriate. White count is 19.6, hemoglobin 9.7, hematocrit 30.4, and platelet count 215,000 sodium is 148, potassium 5.4, chlorides 97, CO2 11, anion gap is 4, BUN is 81, creatinine is 10.25. Plasma lactic acid is 13.8. Magnesium 1.6. The patient is seen today 06/10/2021 in follow-up in the intensive care unit. He is currently sitting up in bed. Arouses to verbal stimuli but drowsy. Somewhat slow to respond. He is maintaining O2 saturations in the 90s on 2 L/m per nasal cannula. He has 0.45% normal saline running at 125 ML's per hour. He is still requiring norepinephrine at 8.4 mcg/m. He is on antibiotics in the form of ceftriaxone. Urine culture reveals no growth. Blood cultures reveal no growth to date. White count 9.2. Hemoglobin 10.0. Platelets 180. Sodium 146. Potassium 3.8. Bicarb 34. Creatinine 9.16. He is making urine at about 100 ML's per hour. The plan is for possible renal replacement therapy today. The patient is seen today 06/11/2021 and follow-up in the intensive care unit. He is much more awake and alert today. Sitting up in bed. Maintaining O2 saturations in the 90s on 2 L/m per nasal cannula. Hemodynamically stable and off pressors currently. He has 0.45 normal saline at 125 an hour. He did r eceive hemodialysis yesterday. Dialysis catheter was placed in the right femoral vein. Today's creatinine is down to 6.67. BUN 68. Potassium 3.2. White count 5.9. Hemoglobin 8.7. Platelet count 106. Sodium 139. Bicarb 33. Glucose 126. Calcium 6.0. He remains on antibiotics in the form of ceftriaxone. He is on calcium replacement tablets. Objective - Vital Signs Vital signs: Vital Signs Temp 98.5 F 06/11/21 04:00 Pulse 78 06/11/21 07:00 Resp 16 06/11/21 07:00 BP 109/59 06/11/21 07:00 Pulse Ox 96 10/15/21 07:00 Intake & Output 06/10/21 06/11/21 06/11/21 18:59 06:59 18:59 Intake Total 2868.261 2329.268 125 Output Total 1585 1105 150 Balance 352.598 342.268 -25 Weight 106.2 kg Intake: IV 20 D5 at 20 20 Intake, IV Titration 6582.869 8785.268 125 Amount Norepinephrine 8 mg In 242.598 72.268 Sodium Chloride 0.9% 250 ml @ 0.05 MCG/KG/MIN 8. 996 mls/hr IV .Q24H [facility] Rx#:[id number] Sodium Chloride 0.45% 1, 1625 1375 125 000 ml @ 125 mls/hr IV . Q8H [facility] Rx#:[id number] cefTRIAXone 1 gm In 50 Sodium Chloride 0.9% 50 ml @ 100 mls/hr IVPB Q24HR [facility] Rx#:[id number] Output: Urine 1585 1105 150 Other: Voiding Method Indwelling Catheter Indwelling Catheter # Bowel Movements 1 - Exam GENERAL EXAM: Awake, more alert 71-year-old male patient, lethargic, on 2 L nasal cannula, fairly comfortable in no apparent distress. HEAD: Normocephalic. EYES: Normal reaction of pupils, equal size. NOSE: Clear with pink turbinates. THROAT: No erythema or exudates. NECK: No masses, no JVD. CHEST: No chest wall deformity. LUNGS: Equal air entry with faint crackles in the posterior bases. CVS: S1 and S2 normal with no audible murmur, regular rhythm. ABDOMEN: No hepatosplenomegaly, normal bowel sounds, no guarding or rigidity. SPINE: No scoliosis or deformity SKIN: No rashes CENTRAL NERVOUS SYSTEM: No focal deficits, tone is normal in all 4 extremities. EXTREMITIES: There is no peripheral edema. No clubbing, no cyanosis. Peripheral pulses are intact. - Labs CBC & Chem 7: 06/11/21 06:43 06/11/21 06:43 Labs: Abnormal Lab Results - Last 24 Hours (Table) 06/10/21 06/10/21 06/10/21 Range/Units 04:33 04:33 08:30 RBC (4.30-5.90) m/uL Hgb (13.0-17.5) gm/dL Hct (39.0-53.0) % Plt Count (150-450) k/uL Lymphocytes # (1.0-4.8) k/uL Potassium (3.5-5.1) mmol/L Chloride (98-107) mmol/L Carbon Dioxide (22-30) mmol/L BUN (9-20) mg/dL Creatinine (0.66-1.25) mg/dL Glucose (74-99) mg/dL POC Glucose (mg/dL) 115 H (75-99) mg/dL Hemoglobin A1c 7.8 H (4.0-6.0) % Calcium (8.4-10.2) mg/dL Procalcitonin 6.88 H (0.02-0.09) ng/mL 06/10/21 06/10/21 06/11/21 Range/Units 10:50 16:42 06:43 RBC 2.70 L (4.30-5.90) m/uL Hgb 8.7 L (13.0-17.5) gm/dL Hct 26.5 L (39.0-53.0) % Plt Count 106 L (150-450) k/uL Lymphocytes # 0.5 L (1.0-4.8) k/uL Potassium (3.5-5.1) mmol/L Chloride 93 L (98-107) mmol/L Carbon Dioxide 37 H (22-30) mmol/L BUN 95 H (9-20) mg/dL Creatinine 8.99 H* (0.66-1.25) mg/dL Glucose 122 H (74-99) mg/dL POC Glucose (mg/dL) 175 H (75-99) mg/dL Hemoglobin A1c (4.0-6.0) % Calcium 6.2 L* (8.4-10.2) mg/dL Procalcitonin (0.02-0.09) ng/mL 06/11/21 06/11/21 Range/Units 06:43 06:55 RBC (4.30-5.90) m/uL Hgb (13.0-17.5) gm/dL Hct (39.0-53.0) % Plt Count (150-450) k/uL Lymphocytes # (1.0-4.8) k/uL Potassium 3.2 L (3.5-5.1) mmol/L Chloride 97 L (98-107) mmol/L Carbon Dioxide 33 H (22-30) mmol/L BUN 68 H (9-20) mg/dL Creatinine 6.67 H (0.66-1.25) mg/dL Glucose 126 H (74-99) mg/dL POC Glucose (mg/dL) 134 H (75-99) mg/dL Hemoglobin A1c (4.0-6.0) % Calcium 6.0 L* (8.4-10.2) mg/dL Procalcitonin (0.02-0.09) ng/mL Microbiology - Last 24 Hours (Table) 06/08/21 18:40 Blood Culture - Preliminary Blood No Growth after 48 hours 06/08/21 13:57 Gram Stain - Preliminary Aspirate Body Fluid Culture - Preliminary Assessment and Plan Assessment: 1 Acute kidney injury, secondary to bilateral renal calculi, and bilateral hydronephrosis. No significant improvement, renal replacement therapy initiated 06/10/2021 2 Routine postoperative ventilator management, with extubation successfully on 06/08/2021. Currently on 2 L nasal cannula 3 Postop day #3, status post bilateral ureteral stents. 4 Severe anion gap metabolic acidosis, secondary to acute kidney injury/acute renal failure. 5 Hypotension secondary to sepsis, improved, currently off norepinephrine 6 Acute hyperkalemia improved. 7 Metabolic/septic encephalopathy. 8 Anuria/oliguria. 9 History of diabetes mellitus. 10 History of hyperlipidemia. 11 History of hypertension. 12 Prior history of kidney stones. 13 History of asthma. Plan: The patient was seen and evaluated by Dr. Nice More awake and alert today Plan is for renal replacement therapy again today Status post bilateral ureteral stents Continued on ceftriaxone Follow-up chest x-ray and labs in a.m. We will continue to follow and make further recommendations based on his clinical status I, the cosigning physician, performed a history & physical examination of the patient. Lungs sounds faint crackles in the posterior bases. Maintaining good O2 saturations in the 90s on 2 L/m per nasal cannula I discussed the assessment and plan of care with my nurse practitioner, Regina Powell. I attest to the above note as dictated by her.
[2021-06-11] MEDS: SODIUM CHLORIDE 0.9% 1,000 ML IV SCH ×2 (09:00→19:46)
[2021-06-11] MEDS: POTASSIUM CHLORIDE 10 MEQ in WATER FOR INJECTION 1 100ML.BAG IVPB SCH ×4 (09:35→13:56)
--- NOTE | 2021-06-11 10:19 | P.PN ---
Subjective Patient is seen in follow-up for acute kidney injury. Underwent bilateral ureteral stent placement this admission. Off vasopressors. Started on h emodialysis June 10 due to uremia and severe renal failure. BUN is better today. Patient is still confused. Nonoliguric. Vital signs are stable. General: Lethargic. HEENT: Head exam is unremarkable. LUNGS: Breath sounds decreased. HEART: Rate and Rhythm are regular. ABDOMEN: Soft, no distention. EXTREMITITES: No edema. Objective - Vital Signs Vital signs: Vital Signs Temp 98.5 F 06/11/21 08:00 Pulse 79 06/11/21 10:00 Resp 15 06/11/21 10:00 BP 128/69 06/11/21 10:00 Pulse Ox 97 06/11/21 10:00 Intake & Output 06/10/21 06/11/21 06/11/21 18:59 06:59 18:59 Intake Total 9832.622 7823.268 375 Output Total 1585 1105 325 Balance 352.598 342.268 50 Weight 106.2 kg Intake: IV 20 250 D5 at 20 20 Sodium Chloride 0.45% 1, 250 000 ml @ 125 mls/hr IV . Q8H [facility] Rx#:[id number] Intake, IV Titration 7217.190 1016.268 125 Amount Norepinephrine 8 mg In 242.598 72.268 Sodium Chloride 0.9% 250 ml @ 0.05 MCG/KG/MIN 8. 996 mls/hr IV .Q24H [facility] Rx#:[id number] Sodium Chloride 0.45% 1, 1625 1375 125 000 ml @ 125 mls/hr IV . Q8H [facility] Rx#:[id number] cefTRIAXone 1 gm In 50 Sodium Chloride 0.9% 50 ml @ 100 mls/hr IVPB Q24HR [facility] Rx#:[id number] Output: Urine 1585 1105 325 Other: Voiding Method Indwelling Catheter Indwelling Catheter # Bowel Movements 1 - Labs CBC & Chem 7: 06/11/21 06:43 06/11/21 06:43 Labs: Abnormal Lab Results - Last 24 Hours (Table) 06/10/21 06/10/21 06/10/21 Range/Units 04:33 04:33 10:50 RBC (4.30-5.90) m/uL Hgb (13.0-17.5) gm/dL Hct (39.0-53.0) % Plt Count (150-450) k/uL Lymphocytes # (1.0-4.8) k/uL Potassium (3.5-5.1) mmol/L Chloride 93 L (98-107) mmol/L Carbon Dioxide 37 H (22-30) mmol/L BUN 95 H (9-20) mg/dL Creatinine 8.99 H* (0.66-1.25) mg/dL Glucose 122 H (74-99) mg/dL POC Glucose (mg/dL) (75-99) mg/dL Hemoglobin A1c 7.8 H (4.0-6.0) % Calcium 6.2 L* (8.4-10.2) mg/dL Procalcitonin 6.88 H (0.02-0.09) ng/mL 06/10/21 06/11/21 06/11/21 Range/Units 16:42 06:43 06:43 RBC 2.70 L (4.30-5.90) m/uL Hgb 8.7 L (13.0-17.5) gm/dL Hct 26.5 L (39.0-53.0) % Plt Count 106 L (150-450) k/uL Lymphocytes # 0.5 L (1.0-4.8) k/uL Potassium 3.2 L (3.5-5.1) mmol/L Chloride 97 L (98-107) mmol/L Carbon Dioxide 33 H (22-30) mmol/L BUN 68 H (9-20) mg/dL Creatinine 6.67 H (0.66-1.25) mg/dL Glucose 126 H (74-99) mg/dL POC Glucose (mg/dL) 175 H (75-99) mg/dL Hemoglobin A1c (4.0-6.0) % Calcium 6.0 L* (8.4-10.2) mg/dL Procalcitonin (0.02-0.09) ng/mL 06/11/21 Range/Units 06:55 RBC (4.30-5.90) m/uL Hgb (13.0-17.5) gm/dL Hct (39.0-53.0) % Plt Count (150-450) k/uL Lymphocytes # (1.0-4.8) k/uL Potassium (3.5-5.1) mmol/L Chloride (98-107) mmol/L Carbon Dioxide (22-30) mmol/L BUN (9-20) mg/dL Creatinine (0.66-1.25) mg/dL Glucose (74-99) mg/dL POC Glucose (mg/dL) 134 H (75-99) mg/dL Hemoglobin A1c (4.0-6.0) % Calcium (8.4-10.2) mg/dL Procalcitonin (0.02-0.09) ng/mL Microbiology - Last 24 Hours (Table) 06/08/21 18:40 Blood Culture - Preliminary Blood No Growth after 48 hours 06/08/21 13:57 Gram Stain - Preliminary Aspirate Body Fluid Culture - Preliminary Assessment and Plan Plan: Assessment: 1. Acute kidney injury secondary to ATN secondary to obstructive uropathy and hypovolemic shock. Creatinine was 11.6 on admission and is 9.16 yesterday. Started on hemodialysis June 10 due to uremia. Patient's creatinine the last 2 years has been in the range of 1.6-2. 2. Bilateral hydronephrosis with nephrolithiasis status post ureteral stent placement on June 08. 3. Hyperkalemia secondary to acute kidney injury, metabolic acidosis and lisinopril. Resolved. Now hypokalemic. 4. Metabolic acidosis secondary to acute kidney injury and lactic acidosis. He was also on metformin outpatient. Status post bicarb drip. Resolved. 5. Diabetes mellitus. 6. Hypernatremia from lack of oral water intake. Resolved. 7. Hypocalcemia secondary to acute kidney injury. 8. Hyperphosphatemia secondary to acute kidney injury. On PhosLo. Improving. Plan: Second treatment of hemodialysis today and third treatment tomorrow. Change half-normal saline to normal saline at 50 mL an hour. Replace calcium and potassium. Check albumin and ionized calcium level. Continue to monitor renal function and urine output. Monitor for renal recovery.
[2021-06-11] MEDS: CALCIUM GLUCONATE 2 GM in SODIUM CHLORIDE 0.9% 100 ML IVPB ONE ×2 (10:42→11:01)
[2021-06-11 10:50] LABS: Ionized Calcium 3.3 mg/dL (4.5-5.3)
[2021-06-11 10:59] LABS: Albumin 2.5 g/dL (3.5-5.0)
[2021-06-11] MEDS: MAGNESIUM SULFATE-D5W PMX 1 GM in DEXTROSE/WATER 1 100ML.BAG IVPB SCH ×3 (11:00→19:45)
--- NOTE | 2021-06-11 11:42 | CONS ---
CONSULTATION This is a 71-year-old gentleman. I was consulted for placement of dialysis catheter. Patient has a history of bilateral hydronephrosis and obstructive nephrolithiasis. He has a history of diabetes mellitus, hyperlipidemia, hypertension. Patient had orthopedic surgery done in the past. The patient was seen in his room. Neck is supple. Trachea is central. Chest reveals crackles bilaterally. Abdomen is soft. Femoral pulses are 1+ bilaterally. PLAN: Placement of the dialysis catheter. Risks and complications were discussed. ROMIE / JASSONN: [id number] /
--- NOTE | 2021-06-11 13:02 | P.PN ---
Subjective Progress Note Date: 06/11/21 Patient is alert and oriented, but appears to have had confusion last night in which he believed physicians from the hospital were trying to kidnap him. Still has asterixis on exam. Labs improving s/p first [employer] session last night. Objective - Vital Signs Vital signs: Vital Signs Temp 98.5 F 06/11/21 08:00 Pulse 78 06/11/21 12:00 Resp 11 L 06/11/21 12:00 BP 112/65 06/11/21 12:00 Pulse Ox 95 06/11/21 12:00 Intake & Output 06/10/21 06/11/21 06/11/21 18:59 06:59 18:59 Intake Total 1094.152 4681.268 625 Output Total 1585 1105 580 Balance 352.598 342.268 45 Weight 106.2 kg Intake: IV 20 350 D5 at 20 20 Sodium Chloride 0.45% 1, 250 000 ml @ 125 mls/hr IV . Q8H [facility] Rx#:[id number] Sodium Chloride 0.9% 1, 100 000 ml @ 50 mls/hr IV . Q20H [facility] Rx#:[id number] Intake, IV Titration 0563.774 9641.268 275 Amount Norepinephrine 8 mg In 242.598 72.268 Sodium Chloride 0.9% 250 ml @ 0.05 MCG/KG/MIN 8. 996 mls/hr IV .Q24H [facility] Rx#:[id number] Potassium Chloride 10 meq 100 In Water For Injection 1 100ml.bag @ 100 mls/hr IVPB Q1HR [facility] Rx#: [id number] Sodium Chloride 0.45% 1, 1625 1375 125 000 ml @ 125 mls/hr IV . Q8H [facility] Rx#:[id number] cefTRIAXone 1 gm In 50 50 Sodium Chloride 0.9% 50 ml @ 100 mls/hr IVPB Q24HR [facility] Rx#:[id number] Output: Urine 1585 1105 580 Other: Voiding Method Indwelling Catheter Indwelling Catheter Indwelling Catheter # Bowel Movements 1 - Exam Gen: awake, alert and oriented 2 HEENT: normocephalic, atraumatic, good hearing acuity, moist mucous membranes Resp: good air exchange, breathing comfortably with no accessory muscle use CVS: good distal perfusion x 4, GI: soft, NTTP, ND : no SPT, bilateral CVAT, carey catheter is present, grossly hemorrhagic MSK: no pitting edema, no clubbing Neuro: non-focal, moving all extremities Psych: cooperative, euthymic mood - Labs CBC & Chem 7: 06/11/21 06:43 06/11/21 06:43 Labs: Abnormal Lab Results - Last 24 Hours (Table) 06/10/21 06/10/21 06/10/21 Range/Units 04:33 04:33 16:42 RBC (4.30-5.90) m/uL Hgb (13.0-17.5) gm/dL Hct (39.0-53.0) % Plt Count (150-450) k/uL Lymphocytes # (1.0-4.8) k/uL Potassium (3.5-5.1) mmol/L Chloride (98-107) mmol/L Carbon Dioxide (22-30) mmol/L BUN (9-20) mg/dL Creatinine (0.66-1.25) mg/dL Glucose (74-99) mg/dL POC Glucose (mg/dL) 175 H (75-99) mg/dL Hemoglobin A1c 7.8 H (4.0-6.0) % Calcium (8.4-10.2) mg/dL Ionized Calcium Estela (4.5-5.3) mg/dL Magnesium (1.6-2.3) mg/dL Albumin (3.5-5.0) g/dL Procalcitonin 6.88 H (0.02-0.09) ng/mL 06/11/21 06/11/21 06/11/21 Range/Units 06:43 06:43 06:43 RBC 2.70 L (4.30-5.90) m/uL Hgb 8.7 L (13.0-17.5) gm/dL Hct 26.5 L (39.0-53.0) % Plt Count 106 L (150-450) k/uL Lymphocytes # 0.5 L (1.0-4.8) k/uL Potassium 3.2 L (3.5-5.1) mmol/L Chloride 97 L (98-107) mmol/L Carbon Dioxide 33 H (22-30) mmol/L BUN 68 H (9-20) mg/dL Creatinine 6.67 H (0.66-1.25) mg/dL Glucose 126 H (74-99) mg/dL POC Glucose (mg/dL) (75-99) mg/dL Hemoglobin A1c (4.0-6.0) % Calcium 6.0 L* (8.4-10.2) mg/dL Ionized Calcium Estela (4.5-5.3) mg/dL Magnesium 1.5 L (1.6-2.3) mg/dL Albumin (3.5-5.0) g/dL Procalcitonin (0.02-0.09) ng/mL 06/11/21 06/11/21 Range/Units 06:43 06:55 RBC (4.30-5.90) m/uL Hgb (13.0-17.5) gm/dL Hct (39.0-53.0) % Plt Count (150-450) k/uL Lymphocytes # (1.0-4.8) k/uL Potassium (3.5-5.1) mmol/L Chloride (98-107) mmol/L Carbon Dioxide (22-30) mmol/L BUN (9-20) mg/dL Creatinine (0.66-1.25) mg/dL Glucose (74-99) mg/dL POC Glucose (mg/dL) 134 H (75-99) mg/dL Hemoglobin A1c (4.0-6.0) % Calcium (8.4-10.2) mg/dL Ionized Calcium Estela 3.3 L* (4.5-5.3) mg/dL Magnesium (1.6-2.3) mg/dL Albumin 2.5 L (3.5-5.0) g/dL Procalcitonin (0.02-0.09) ng/mL Microbiology - Last 24 Hours (Table) 06/08/21 13:57 Gram Stain - Preliminary Aspirate Body Fluid Culture - Preliminary 06/08/21 18:40 Blood Culture - Preliminary Blood No Growth after 48 hours Assessment and Plan Assessment: Bilateral hydronephrosis Obstructive nephrolithiasis Post renal Acute kidney injury -Admit inpatient, ICU with Pulm consult -Nephrology consult; hemodialysis 06/10, 06/11 -Urology consult stat for nephroureteral stent completed on 06/08 -Pain control: Dilaudid when necessary -Stool softener -Nausea control -IV fluids, hourly urine output -Bicarb drip discontinued; -Started on calcium acetate, Phos improving -replete Ca, Mg, K as necessary Diabetes Hypertension Hyperlipidemia -Home medications reviewed and reconciled Patient is full code DVT prophylaxis with heparin 3 times a day
[2021-06-11 19:56] LABS: Glucose,Whole Blood 176 mg/dL (75-99)
[2021-06-11 20:14] LABS: Hepatitis B Surface Antibody NonReactive (Nonreactive)
[2021-06-11] MEDS: INSULIN DETEMIR (LEVEMIR) 100 UNIT/ML SYR SQ SCH (20:27)
[2021-06-11] MEDS: NOREPINEPHRINE 8 MG in SODIUM CHLORIDE 0.9% 250 ML IV SCH (22:30)
[2021-06-12 06:31] LABS: Glucose,Whole Blood 159 mg/dL (75-99)
[2021-06-12] MEDS: CALCIUM ACETATE 667 MG TAB PO SCH ×3 (06:34→17:41)
[2021-06-12] MEDS: INSULIN ASPART (NovoLOG) 100 UNIT/ML VIAL SQ SCH ×3 (06:34→17:32)
[2021-06-12] MEDS: SODIUM CHLORIDE 0.9% 1,000 ML IV SCH (06:35)
--- NOTE | 2021-06-12 06:39 | XR ---
EXAMINATION TYPE: XR chest 1V portable DATE OF EXAM: 06/12/2021 COMPARISON: 06/08/21 HISTORY: weakness TECHNIQUE: Single frontal view of the chest is obtained. FINDINGS: Interval development of retrocardiac opacity c/w infiltrate and effusion. Rt lung is clear. No pneumothorax. Osseous structures intact. Impression: new l; eft lower effusion and infiltrate
[2021-06-12 11:30] LABS: Basophils % (A) 0 %; Eosinophils # (A) 0.3 k/uL (0-0.7); Eosinophils % (A) 5 %; HCT 26.6 % (39.0-53.0); HGB 8.6 gm/dL (13.0-17.5); Lymphocytes # (A) 0.5 k/uL (1.0-4.8); Lymphocytes % (A) 11 %; MCH 32.2 pg (25.0-35.0); MCHC 32.4 g/dL (31.0-37.0); MCV 99.2 fL (80.0-100.0); Mean Platelet Volume 7.6; Monocytes # (A) 0.3 k/uL (0-1.0); Monocytes % (A) 7 %; Neutrophils # (A) 3.8 k/uL (1.3-7.7); Neutrophils % (A) 76 %; Platelet Count 110 k/uL (150-450); RBC 2.68 m/uL (4.30-5.90); RDW 11.9 % (11.5-15.5)
--- NOTE | 2021-06-12 11:42 | PN ---
PROGRESS NOTE Patient is seen for followup for acute kidney injury. He is seen on dialysis. Patient is tolerating his treatment well. Today is his second treatment. He has been started on dialysis secondary to severe renal failure with creatinine of 11.6 and uremia. Patient currently has fair urine output, with urine output noted at 75 to 100 mL/hour. He is status post bilateral ureteral stent placement by Urology on 06/08/2021 for bilateral hydronephrosis and ureteral calculi. On examination today, blood pressure is 132/65, heart rate 70 per minute. He is afebrile. EXAMINATION OF THE HEART: S1 and S2. EXAMINATION OF LUNGS: Decreased breath sounds at the bases. Abdomen is soft, non-tender. Examination of lower extremities shows trace edema bilaterally. PRECISION MILLWRIGHT EXAM: Grossly intact. Labs show sodium 139, potassium 3.2, chloride 97, BUN 68, creatinine 6.67, hemoglobin 8.7 g/dL, calcium 6, magnesium 3.3. ASSESSMENT: 1. Acute kidney injury, acute tubular necrosis, and obstructive uropathy, status post bilateral ureteral stents and started on hemodialysis, tolerating treatment well. Patient is getting his third treatment today. He was started on dialysis on June 10. We will hold dialysis tomorrow and monitor renal function and urine output. Serum creatinine previously has been 1.6 to 2 mg/dL. 2. Chronic kidney disease. Previous creatinine 1.6 to 2 and stage 3B secondary to nephrosclerosis, nephrolithiasis, possible underlying diabetic kidney disease. 3. Hyperkalemia associated with acute kidney injury, metabolic acidosis, on HELENA inhibitors, now improved. Potassium now staying on the lower side. 4. Metabolic acidosis associated with renal failure, lactic acidosis, and possibly related to metformin as well, currently improved. 5. Hypocalcemia, status post replacement. 6. Hypernatremia associated with free water deficit. 7. Hyperphosphatemia associated with renal failure, maintained on PhosLo. PLAN: Continue saline at 50 mL/hour. Repeat labs in a.m. Replace potassium and calcium. Hold dialysis tomorrow and repeat labs in a.m. ROMIE / WILLIAMS: [id number] /
[2021-06-12 12:02] LABS: Glucose,Whole Blood 98 mg/dL (75-99)
--- NOTE | 2021-06-12 12:56 | P.PN ---
Subjective Progress Note Date: 06/12/21 Pulmonary/critical care consultation dated 06/08/2021. 71-year-old male, who presents to the emergency department at 0652 in the morning on June 08. He was brought in by his . This patient for the last week to 10 days has not been feeling well. He's had significant weakness, fatigue, nausea, and vomiting. According to his , the patient became very weak, and really could not balance himself or walk properly. For that reason, she brought in to be evaluated. In addition, the patient has not urinated in the last 24 hours. He had some mental status changes and obviously was very concerned. We were asked to see the patient for possible admission to the intensive care unit. The patient was hypotensive. In addition, the patient had developed acute kidney injury/acute renal failure, and was found on CAT scan to have kidney stones. He may need a stent placement according to the ER physician. His medical history includes asthma, diabetes, hyperlipidemia, hypertension, kidney stones, umbilical hernia, and recent coronavirus infection. The patient is a lifelong nonsmoker. There is a family history of deep venous thrombosis. White count was 15.8, hemoglobin 11.5, hematocrit 37.2, platelet count 219,000. Sodium 150, potassium 5.1, chlorides 101, CO2 less than 5, anion gap was 38, BUN 72, and creatinine 11.21. Lactic acid was 14.6. CT of the abdomen and pelvis showed new mild right-sided hydronephrosis and right perinephritic fat stranding with interval passage of a small lower pole right renal calculi into the bladder. There is persistent moderate left-sided hydro nephrosis due to obstructing distal ureter calculi. It should also be noted that the patient was here about a week ago, hydrated in the emergency department, and discharged home. The patient is to go to the operating room for bilateral stent placement. Progress note dated 06/09/2021. 71-year-old white male seen yesterday in the emergency department. The patient went to the operating room yesterday, had bilateral ureteral stents. He was successfully extubated on June 08. Today's postop day #1. Currently, he's on 3 L nasal cannula, IV Rocephin, and an IV of D5W with 3 ampules of sodium bicarbonate at 1 50 mL an hour. The patient is getting saline at 20 mL now which I told the nurse to discontinue. In addition, the patient is on norepinephrine at 9 mcg/m. Clinically he appears to be a bit sleepy but does arouse and is appropriate. White count is 19.6, hemoglobin 9.7, hematocrit 30.4, and platelet count 215,000 sodium is 148, potassium 5.4, chlorides 97, CO2 11, anion gap is 4, BUN is 81, creatinine is 10.25. Plasma lactic acid is 13.8. Magnesium 1.6. The patient is seen today 06/10/2021 in follow-up in the intensive care unit. He is currently sitting up in bed. Arouses to verbal stimuli but drowsy. Somewhat slow to respond. He is maintaining O2 saturations in the 90s on 2 L/m per nasal cannula. He has 0.45% normal saline running at 125 ML's per hour. He is still requiring norepinephrine at 8.4 mcg/m. He is on antibiotics in the form of ceftriaxone. Urine culture reveals no growth. Blood cultures reveal no growth to date. White count 9.2. Hemoglobin 10.0. Platelets 180. Sodium 146. Potassium 3.8. Bicarb 34. Creatinine 9.16. He is making urine at about 100 ML's per hour. The plan is for possible renal replacement therapy today. The patient is seen today 06/11/2021 and follow-up in the intensive care unit. He is much more awake and alert today. Sitting up in bed. Maintaining O2 saturations in the 90s on 2 L/m per nasal cannula. Hemodynamically stable and off pressors currently. He has 0.45 normal saline at 125 an hour. He did r eceive hemodialysis yesterday. Dialysis catheter was placed in the right femoral vein. Today's creatinine is down to 6.67. BUN 68. Potassium 3.2. White count 5.9. Hemoglobin 8.7. Platelet count 106. Sodium 139. Bicarb 33. Glucose 126. Calcium 6.0. He remains on antibiotics in the form of ceftriaxone. He is on calcium replacement tablets. the patient is seen today 06/12/2021 in follow-up in the intensive care unit. He is sitting up in bed. Awake and alert in no acute distress. Feeling nearly back to his baseline mentally. He is maintaining good O2 saturations in the 90s on 2 L/m per nasal cannula. His 0.9 normal saline at 50 mL per hour. Chest x- ray shows interval development of a retrocardiac opacity/infiltrate and effusion of the left lung. Right lung is clear. He did receive hemodialysis again yesterday. The plan is for possible lhemodialysis again tomorrow. white count 5.0. Hemoglobin 8.6. Platelets 110. Glucose 98. He remains on ceftriaxone. Objective - Vital Signs Vital signs: Vital Signs Temp 98.5 F 06/12/21 08:00 Pulse 66 06/12/21 12:00 Resp 16 06/12/21 12:00 BP 125/66 06/12/21 12:00 Pulse Ox 98 06/12/21 12:00 Intake & Output 06/11/21 06/12/21 06/12/21 18:59 06:59 18:59 Intake Total 1995 550 420 Output Total 2130 785 605 Balance -135 -235 -185 Weight 103.8 kg Intake: IV 600 550 300 Sodium Chloride 0.45% 1, 250 000 ml @ 125 mls/hr IV . Q8H [facility] Rx#:[id number] Sodium Chloride 0.9% 1, 350 550 300 000 ml @ 50 mls/hr IV . Q20H [facility] Rx#:[id number] Intake, IV Titration 975 Amount Calcium Gluconate 2 gm In 100 Sodium Chloride 0.9% 100 ml @ 100 mls/hr IVPB ONCE ONE Rx#:[id number] Magnesium Sulfate-D5w Pmx 300 1 gm In Dextrose/Water 1 100ml.bag @ 100 mls/hr IVPB Q1H [facility] Rx#: [id number] Potassium Chloride 10 meq 400 In Water For Injection 1 100ml.bag @ 100 mls/hr IVPB Q1HR [facility] Rx#: [id number] Sodium Chloride 0.45% 1, 125 000 ml @ 125 mls/hr IV . Q8H [facility] Rx#:[id number] cefTRIAXone 1 gm In 50 Sodium Chloride 0.9% 50 ml @ 100 mls/hr IVPB Q24HR [facility] Rx#:[id number] Oral 120 120 Hemodialysis 300 Output: Urine 1330 785 605 Hemodialysis 800 Other: Voiding Method Indwelling Catheter Indwelling Catheter Indwelling Catheter # Bowel Movements 1 - Exam GENERAL EXAM: Awake, more alert 71-year-old male patient, on 2 L nasal cannula, fairly comfortable in no apparent distress. HEAD: Normocephalic. EYES: Normal reaction of pupils, equal size. NOSE: Clear with pink turbinates. THROAT: No erythema or exudates. NECK: No masses, no JVD. CHEST: No chest wall deformity. LUNGS: Equal air entry with faint crackles in the left base. CVS: S1 and S2 normal with no audible murmur, regular rhythm. ABDOMEN: No hepatosplenomegaly, normal bowel sounds, no guarding or rigidity. SPINE: No scoliosis or deformity SKIN: No rashes CENTRAL NERVOUS SYSTEM: No focal deficits, tone is normal in all 4 extremities. EXTREMITIES: There is no peripheral edema. No clubbing, no cyanosis. Peripheral pulses are intact. - Labs CBC & Chem 7: 06/12/21 10:50 06/11/21 06:43 Labs: Abnormal Lab Results - Last 24 Hours (Table) 06/10/21 06/11/21 06/12/21 Range/Units 10:50 19:53 06:29 RBC (4.30-5.90) m/uL Hgb (13.0-17.5) gm/dL Hct (39.0-53.0) % Plt Count (150-450) k/uL Lymphocytes # (1.0-4.8) k/uL POC Glucose (mg/dL) 176 H 159 H (75-99) mg/dL Hep Bs Antibody NonReactive A (Nonreactive) 06/12/21 Range/Units 10:50 RBC 2.68 L (4.30-5.90) m/uL Hgb 8.6 L (13.0-17.5) gm/dL Hct 26.6 L (39.0-53.0) % Plt Count 110 L (150-450) k/uL Lymphocytes # 0.5 L (1.0-4.8) k/uL POC Glucose (mg/dL) (75-99) mg/dL Hep Bs Antibody (Nonreactive) Microbiology - Last 24 Hours (Table) 06/08/21 13:57 Gram Stain - Preliminary Aspirate Body Fluid Culture - Preliminary 06/08/21 18:40 Blood Culture - Preliminary Blood No Growth after 72 hours 06/08/21 13:57 Anaerobic Culture - Preliminary Aspirate Assessment and Plan Assessment: 1 Acute kidney injury, secondary to bilateral renal calculi, and bilateral hydronephrosis. No significant improvement, renal replacement therapy initiated 06/10/2021 2 Routine postoperative ventilator management, with extubation successfully on 06/08/2021. Currently on 2 L nasal cannula 3 Postop day #4, status post bilateral ureteral stents. 4 Severe anion gap metabolic acidosis, secondary to acute kidney injury/acute renal failure. 5 Hypotension secondary to sepsis, improved, currently off norepinephrine 6 Acute hyperkalemia improved. 7 Metabolic/septic encephalopathy. 8 Anuria/oliguria. 9 History of diabetes mellitus. 10 History of hyperlipidemia. 11 History of hypertension. 12 Prior history of kidney stones. 13 History of asthma. Plan: The patient was seen and evaluated by Dr. Nice More awake and alert today Status post bilateral ureteral stents Continued on ceftriaxone Follow-up chest x-ray and labs in a.m. We will continue to follow and make further recommendations based on his clinical status I, the cosigning physician, performed a history & physical examination of the patient. Lungs sounds faint crackles in the left base. Maintaining good O2 saturations in the 90s on 2 L/m per nasal cannula I discussed the assessment and plan of care with my nurse practitioner, Regina Powell. I attest to the above note as dictated by her.
--- NOTE | 2021-06-12 14:08 | P.PN ---
Subjective Progress Note Date: 06/12/21 Patient is doing well today, mentation is significantly improved. Labs today are pending. Patient remains quite weak and requires 2 person max assist for bed transfers. Objective - Vital Signs Vital signs: Vital Signs Temp 98.4 F 06/12/21 13:25 Pulse 67 06/12/21 13:25 Resp 20 06/12/21 13:25 BP 146/83 06/12/21 13:25 Pulse Ox 98 06/12/21 13:00 Intake & Output 06/11/21 06/12/21 06/12/21 18:59 06:59 18:59 Intake Total 1994 550 770 Output Total 0 785 1965 Balance -135 235 -1195 Weight 103.8 kg Intake: IV 600 550 350 Sodium Chloride 0.45% 1, 250 000 ml @ 125 mls/hr IV . Q8H [facility] Rx#:[id number] Sodium Chloride 0.9% 1, 350 550 350 000 ml @ 50 mls/hr IV . Q20H [facility] Rx#:[id number] Intake, IV Titration 975 Amount Calcium Gluconate 2 gm In 100 Sodium Chloride 0.9% 100 ml @ 100 mls/hr IVPB ONCE ONE Rx#:[id number] Magnesium Sulfate-D5w Pmx 300 1 gm In Dextrose/Water 1 100ml.bag @ 100 mls/hr IVPB Q1H [facility] Rx#: [id number] Potassium Chloride 10 meq 400 In Water For Injection 1 100ml.bag @ 100 mls/hr IVPB Q1HR [facility] Rx#: [id number] Sodium Chloride 0.45% 1, 125 000 ml @ 125 mls/hr IV . Q8H [facility] Rx#:[id number] cefTRIAXone 1 gm In 50 Sodium Chloride 0.9% 50 ml @ 100 mls/hr IVPB Q24HR [facility] Rx#:[id number] Oral 120 120 Hemodialysis 300 300 Output: Urine 1330 785 665 Hemodialysis 800 1300 Other: Voiding Method Indwelling Catheter Indwelling Catheter Indwelling Catheter # Bowel Movements 1 - Exam Gen: awake, alert and oriented 3 HEENT: normocephalic, atraumatic, good hearing acuity, moist mucous membranes Resp: good air exchange, breathing comfortably with no accessory muscle use CVS: good distal perfusion x 4, GI: soft, NTTP, ND : no SPT, bilateral CVAT, carey catheter is present, grossly hemorrhagic MSK: no pitting edema, no clubbing Neuro: non-focal, moving all extremities Psych: cooperative, euthymic mood - Labs CBC & Chem 7: 06/12/21 10:50 06/11/21 06:43 Labs: Abnormal Lab Results - Last 24 Hours (Table) 06/10/21 06/11/21 06/12/21 Range/Units 10:50 19:53 06:29 RBC (4.30-5.90) m/uL Hgb (13.0-17.5) gm/dL Hct (39.0-53.0) % Plt Count (150-450) k/uL Lymphocytes # (1.0-4.8) k/uL POC Glucose (mg/dL) 176 H 159 H (75-99) mg/dL Hep Bs Antibody NonReactive A (Nonreactive) 06/12/21 Range/Units 10:50 RBC 2.68 L (4.30-5.90) m/uL Hgb 8.6 L (13.0-17.5) gm/dL Hct 26.6 L (39.0-53.0) % Plt Count 110 L (150-450) k/uL Lymphocytes # 0.5 L (1.0-4.8) k/uL POC Glucose (mg/dL) (75-99) mg/dL Hep Bs Antibody (Nonreactive) Microbiology - Last 24 Hours (Table) 06/08/21 13:57 Gram Stain - Preliminary Aspirate Body Fluid Culture - Preliminary 06/08/21 18:40 Blood Culture - Preliminary Blood No Growth after 72 hours 06/08/21 13:57 Anaerobic Culture - Preliminary Aspirate Assessment and Plan Assessment: Bilateral hydronephrosis Obstructive nephrolithiasis Post renal Acute kidney injury -Admit inpatient, ICU with Pulm consult -Nephrology consult; hemodialysis 06/10, 06/11, 06/12 -Urology consult stat for nephroureteral stent completed on 06/08 -Pain control: Dilaudid when necessary -Stool softener -Nausea control -IV fluids, hourly urine output -Bicarb drip discontinued; -Started on calcium acetate, Phos improving -replete Ca, Mg, K as necessary Diabetes Hypertension Hyperlipidemia -Home medications reviewed and reconciled Patient is full code DVT prophylaxis with heparin 3 times a day
[2021-06-12 16:18] LABS: Albumin 2.7 g/dL (3.5-5.0); Calcium 7.4 mg/dL (8.4-10.2); Potassium 3.7 mmol/L (3.5-5.1); Total Bilirubin 0.6 mg/dL (0.2-1.3); Total Protein 4.8 g/dL (6.3-8.2)
[2021-06-12 17:29] LABS: Glucose,Whole Blood 130 mg/dL (75-99)
[2021-06-12 18:54] LABS: Hepatitis B Surface Antigen Nonreactive (Nonreactive)
[2021-06-12 20:06] LABS: Glucose,Whole Blood 191 mg/dL (75-99)
[2021-06-12] MEDS: INSULIN DETEMIR (LEVEMIR) 100 UNIT/ML SYR SQ SCH (21:04)
[2021-06-13] MEDS: NOREPINEPHRINE 8 MG in SODIUM CHLORIDE 0.9% 250 ML IV SCH (06:12)
[2021-06-13] MEDS: SODIUM CHLORIDE 0.9% 1,000 ML IV SCH (06:12)
[2021-06-13 07:30] LABS: Glucose,Whole Blood 87 mg/dL (75-99)
[2021-06-13] MEDS: INSULIN ASPART (NovoLOG) 100 UNIT/ML VIAL SQ SCH ×3 (07:51→17:33)
[2021-06-13] MEDS: CALCIUM ACETATE 667 MG TAB PO SCH ×3 (08:13→17:33)
--- NOTE | 2021-06-13 10:34 | P.PN ---
Subjective Progress Note Date: 06/13/21 Patient is doing well today, mentation is significantly improved. Patient remains quite weak and requires 2 person max assist for bed transfers. Nutrition is improving, but still not adequate. Objective - Vital Signs Vital signs: Vital Signs Temp 97.8 F 06/13/21 05:07 Pulse 62 06/13/21 05:07 Resp 16 06/13/21 05:07 BP 137/77 06/13/21 05:07 Pulse Ox 94 L 06/13/21 05:07 Intake & Output 06/12/21 06/13/21 06/13/21 18:59 06:59 18:59 Intake Total 1730 990 Output Total 2090 800 Balance -360 190 Weight 104 kg Intake: IV 600 400 Sodium Chloride 0.9% 1, 600 400 000 ml @ 50 mls/hr IV . Q20H [facility] Rx#:[id number] Oral 830 590 Hemodialysis 300 Output: Urine 790 800 Uretheral (Carey) 800 Hemodialysis 1300 Other: Voiding Method Indwelling Catheter Indwelling Catheter Indwelling Catheter # Voids 1 1 - Exam Gen: awake, alert and oriented 3 HEENT: normocephalic, atraumatic, good hearing acuity, moist mucous membranes Resp: good air exchange, breathing comfortably with no accessory muscle use CVS: good distal perfusion x 4, GI: soft, NTTP, ND : no SPT, bilateral CVAT, carey catheter is present, grossly hemorrhagic MSK: no pitting edema, no clubbing Neuro: non-focal, moving all extremities Psych: cooperative, euthymic mood - Labs CBC & Chem 7: 06/12/21 10:50 06/12/21 15:30 Labs: Abnormal Lab Results - Last 24 Hours (Table) 06/12/21 06/12/21 06/12/21 Range/Units 10:50 15:30 17:22 RBC 2.68 L (4.30-5.90) m/uL Hgb 8.6 L (13.0-17.5) gm/dL Hct 26.6 L (39.0-53.0) % Plt Count 110 L (150-450) k/uL Lymphocytes # 0.5 L (1.0-4.8) k/uL Chloride 109 H (98-107) mmol/L BUN 31 H (9-20) mg/dL Creatinine 3.17 H (0.66-1.25) mg/dL Glucose 122 H (74-99) mg/dL POC Glucose (mg/dL) 130 H (75-99) mg/dL Calcium 7.4 L (8.4-10.2) mg/dL AST 63 H (17-59) U/L Total Protein 4.8 L (6.3-8.2) g/dL Albumin 2.7 L (3.5-5.0) g/dL 06/12/21 Range/Units 20:05 RBC (4.30-5.90) m/uL Hgb (13.0-17.5) gm/dL Hct (39.0-53.0) % Plt Count (150-450) k/uL Lymphocytes # (1.0-4.8) k/uL Chloride (98-107) mmol/L BUN (9-20) mg/dL Creatinine (0.66-1.25) mg/dL Glucose (74-99) mg/dL POC Glucose (mg/dL) 191 H (75-99) mg/dL Calcium (8.4-10.2) mg/dL AST (17-59) U/L Total Protein (6.3-8.2) g/dL Albumin (3.5-5.0) g/dL Microbiology - Last 24 Hours (Table) 06/08/21 13:57 Gram Stain - Final Aspirate Body Fluid Culture - Final 06/08/21 18:40 Blood Culture - Preliminary Blood No Growth after 96 hours Assessment and Plan Assessment: Bilateral hydronephrosis Obstructive nephrolithiasis Post renal Acute kidney injury -Admit inpatient -Nephrology consult; hemodialysis 06/10, 06/11, 06/12 -Urology consult stat for nephroureteral stent completed on 06/08 -Pain control: Dilaudid when necessary -Stool softener -Nausea control -IV fluids, hourly urine output -Bicarb drip discontinued; -Started on calcium acetate, Phos improving -replete Ca, Mg, K as necessary -PT consult; OOB for meals TID Diabetes Hypertension Hyperlipidemia -Home medications reviewed and reconciled Patient is full code DVT prophylaxis with heparin 3 times a day
[2021-06-13 12:05] LABS: Glucose,Whole Blood 153 mg/dL (75-99)
--- NOTE | 2021-06-13 15:08 | P.PN ---
Subjective Progress Note Date: 06/13/21 Principal diagnosis: Pt is seen for f/u for JONI. Doing fairly well. No complaints of SOB/n/v/d. Oral intake slowly improving. HD on hold today. Good UOP. 1590/ 24 hrs Cr 3.1 today. Objective - Vital Signs Vital signs: Vital Signs Temp 98.8 F 06/13/21 12:41 Pulse 59 L 06/13/21 12:41 Resp 16 06/13/21 12:41 BP 157/83 06/13/21 12:41 Pulse Ox 95 06/13/21 12:41 Intake & Output 06/12/21 06/13/21 06/13/21 18:59 06:59 18:59 Intake Total 1730 990 Output Total 2090 800 Balance -360 190 Weight 104 kg Intake: IV 600 400 Sodium Chloride 0.9% 1, 600 400 000 ml @ 50 mls/hr IV . Q20H [facility] Rx#:[id number] Oral 830 590 Hemodialysis 300 Output: Urine 790 800 Uretheral ([facility]) 800 Hemodialysis 1300 Other: Voiding Method Indwelling Catheter Indwelling Catheter Indwelling Catheter # Voids 1 1 - Exam Pt is awake alert, oriented x3. No acute distress. Lungs are clear. CVS S1 and S2. No rub. Abdomen is soft, nontender Extremities show no significant edema. SHAKE SAWYER exam grossly intact. No motor deficits noted. - Labs CBC & Chem 7: 06/12/21 10:50 06/12/21 15:30 Labs: Abnormal Lab Results - Last 24 Hours (Table) 06/12/21 06/12/21 06/12/21 Range/Units 15:30 17:22 20:05 Chloride 109 H (98-107) mmol/L BUN 31 H (9-20) mg/dL Creatinine 3.17 H (0.66-1.25) mg/dL Glucose 122 H (74-99) mg/dL POC Glucose (mg/dL) 130 H 191 H (75-99) mg/dL Calcium 7.4 L (8.4-10.2) mg/dL AST 63 H (17-59) U/L Total Protein 4.8 L (6.3-8.2) g/dL Albumin 2.7 L (3.5-5.0) g/dL 06/13/21 Range/Units 11:40 Chloride (98-107) mmol/L BUN (9-20) mg/dL Creatinine (0.66-1.25) mg/dL Glucose (74-99) mg/dL POC Glucose (mg/dL) 153 H (75-99) mg/dL Calcium (8.4-10.2) mg/dL AST (17-59) U/L Total Protein (6.3-8.2) g/dL Albumin (3.5-5.0) g/dL Microbiology - Last 24 Hours (Table) 06/08/21 13:57 Anaerobic Culture - Final Aspirate 06/08/21 13:57 Gram Stain - Final Aspirate Body Fluid Culture - Final 06/08/21 18:40 Blood Culture - Preliminary Blood No Growth after 96 hours Assessment and Plan Assessment: 1. JONI, ATN,obstructive uropathy, started on HD on 06/10/21 due to severe renal failure and uremia.Currently with good UOP. HD on hold today. Assess for recovery of renal function and possible HD in am based on labs in am. 2. Metabolic acidosis secondary to renal failure, possibly related to metformin, improved with [facility]. 3. Hyperkalemia secondary to JONI and obstructive uropathy. Resolved. 4. Bilateral hydronephrosis with bilateral ureteral calculi s/p bilateral stents. Good UOP. 5. Hyperphosphatemia secondary to renal failure, on phos binders. Plan: 1. Continue to avoid nephrotoxic agents. 2. Repeat labs in am and possible HD tomorrow based on labs. 3. Check phos. 4. Encouraged increased oral intake.
--- NOTE | 2021-06-13 16:08 | P.PN ---
Subjective Underwent bilateral ureteral stent placement on 06/08 , for bilateral hydronephrosis. creat 3.1 this am, denies any flank pain. Objective - Vital Signs Vital signs: Vital Signs Temp 98.8 F 06/13/21 12:41 Pulse 59 L 06/13/21 12:41 Resp 16 06/13/21 12:41 BP 157/83 06/13/21 12:41 Pulse Ox 95 06/13/21 12:41 Intake & Output 06/12/21 06/13/21 06/13/21 18:59 06:59 18:59 Intake Total 5083 418 7302 Output Total 2090 800 650 Balance -469 122 6791 Weight 104 kg Intake: IV 600 400 600 Sodium Chloride 0.9% 1, 600 400 600 000 ml @ 50 mls/hr IV . Q20H [facility] Rx#:[id number] Oral 316 114 2697 Hemodialysis 300 Output: Urine 790 800 650 Uretheral (Carey) 800 Hemodialysis 1300 Other: Voiding Method Indwelling Catheter Indwelling Catheter Indwelling Catheter # Voids 1 1 # Bowel Movements 2 - Constitutional General appearance: Present: no acute distress - Psychiatric Psychiatric: Present: A&O x's 3 - Labs CBC & Chem 7: 06/12/21 10:50 06/12/21 15:30 Labs: Abnormal Lab Results - Last 24 Hours (Table) 06/12/21 06/12/21 06/12/21 Range/Units 15:30 17:22 20:05 Chloride 109 H (98-107) mmol/L BUN 31 H (9-20) mg/dL Creatinine 3.17 H (0.66-1.25) mg/dL Glucose 122 H (74-99) mg/dL POC Glucose (mg/dL) 130 H 191 H (75-99) mg/dL Calcium 7.4 L (8.4-10.2) mg/dL AST 63 H (17-59) U/L Total Protein 4.8 L (6.3-8.2) g/dL Albumin 2.7 L (3.5-5.0) g/dL 06/13/21 Range/Units 11:40 Chloride (98-107) mmol/L BUN (9-20) mg/dL Creatinine (0.66-1.25) mg/dL Glucose (74-99) mg/dL POC Glucose (mg/dL) 153 H (75-99) mg/dL Calcium (8.4-10.2) mg/dL AST (17-59) U/L Total Protein (6.3-8.2) g/dL Albumin (3.5-5.0) g/dL Microbiology - Last 24 Hours (Table) 06/08/21 13:57 Anaerobic Culture - Final Aspirate 06/08/21 13:57 Gram Stain - Final Aspirate Body Fluid Culture - Final 06/08/21 18:40 Blood Culture - Preliminary Blood No Growth after 96 hours Assessment and Plan Assessment: 71-year-old male admitted to the hospital with renal failure, underwent bilateral ureteral stent placement on June 08. urine output improving, creatinine 3.1 -Can remove the carey catheter prior to discharge -Will arrange for outpatient bilateral Ureteroscopies to address his kidney stones
[2021-06-13 16:54] LABS: Glucose,Whole Blood 172 mg/dL (75-99)
[2021-06-13 20:27] LABS: Glucose,Whole Blood 143 mg/dL (75-99)
[2021-06-13] MEDS: traZODone HCL 50 MG TAB PO PRN (20:45)
[2021-06-13] MEDS: INSULIN DETEMIR (LEVEMIR) 100 UNIT/ML SYR SQ SCH (20:45)
[2021-06-14] MEDS: SODIUM CHLORIDE 0.9% 1,000 ML IV SCH ×2 (03:31→18:41)
[2021-06-14] MEDS: NOREPINEPHRINE 8 MG in SODIUM CHLORIDE 0.9% 250 ML IV SCH (03:32)
[2021-06-14 07:29] LABS: Glucose,Whole Blood 143 mg/dL (75-99)
[2021-06-14] MEDS: INSULIN ASPART (NovoLOG) 100 UNIT/ML VIAL SQ SCH ×3 (08:08→18:02)
[2021-06-14] MEDS: CALCIUM ACETATE 667 MG TAB PO SCH ×3 (08:08→18:02)
[2021-06-14 08:22] LABS: Basophils % (A) 0 %; Eosinophils # (A) 0.3 k/uL (0-0.7); Eosinophils % (A) 4 %; HCT 26.3 % (39.0-53.0); HGB 8.7 gm/dL (13.0-17.5); Lymphocytes # (A) 0.9 k/uL (1.0-4.8); Lymphocytes % (A) 14 %; MCH 32.3 pg (25.0-35.0); MCHC 33.1 g/dL (31.0-37.0); MCV 97.6 fL (80.0-100.0); Mean Platelet Volume 9.1; Monocytes # (A) 0.4 k/uL (0-1.0); Monocytes % (A) 6 %; Neutrophils % (A) 73 %; Platelet Count 116 k/uL (150-450); RBC 2.69 m/uL (4.30-5.90); RDW 12.1 % (11.5-15.5); WBC 6.8 k/uL (3.8-10.6)
[2021-06-14 08:54] LABS: ALT 28 U/L (4-49); AST 59 U/L (17-59); African American GFR (CKD) 20 (>60 ml/min/1.73 sqM); Albumin 2.5 g/dL (3.5-5.0); Albumin/Globulin Ratio 1.2; Alkaline Phosphatase 75 U/L (38-126); Anion Gap 3 mmol/L; Blood Urea Nitrogen 35 mg/dL (9-20); Calcium 7.2 mg/dL (8.4-10.2); Carbon Dioxide 30 mmol/L (22-30); Chloride 109 mmol/L (98-107); Globulin 2.1 g/dL; Glucose 126 mg/dL (74-99); Non-African American GFR(CKD) 17 (>60 ml/min/1.73 sqM); Potassium 3.2 mmol/L (3.5-5.1); Sodium 142 mmol/L (137-145); Total Bilirubin 0.4 mg/dL (0.2-1.3); Total Protein 4.6 g/dL (6.3-8.2)
[2021-06-14 11:50] LABS: Glucose,Whole Blood 96 mg/dL (75-99)
--- NOTE | 2021-06-14 11:50 | FL ---
EXAMINATION TYPE: FL barium swallow w video DATE OF EXAM: 06/14/2021 MODIFIED SWALLOW / DEGLUTITION STUDY CLINICAL HISTORY: Frequent throat clearing TECHNIQUE: Deglutition study is performed utilizing thin liquid barium, barium thick pudding, and ba rium coated cracker. 1 minute 50 seconds fluoroscopy time COMPARISON: None. FINDINGS: The oral and pharyngeal phases show satisfactory initiation and propagation with all modali ties tested. Normal mastication is seen with solid modalities tested. There is penetration without miles aspiration with thin liquids. IMPRESSION: Penetration without miles aspiration with thin liquids. Please refer to speech therapist notes for further details if necessary.
--- NOTE | 2021-06-14 13:51 | P.PN ---
Subjective Progress Note Date: 06/14/21 Pt is greatly improved in terms of mentation, also quickly improving in physical debility. Now able to transfer to chair with min-assist. Nutrition is modestly improved, needs to increase calorie intake. Mildly worse to stable BUN/Cr since dialysis held yesterday, but expected, and UOP is good. Objective - Vital Signs Vital signs: Vital Signs Temp 98.7 F 06/14/21 12:11 Pulse 61 06/14/21 12:11 Resp 18 06/14/21 12:11 BP 158/85 06/14/21 12:11 Pulse Ox 96 06/14/21 12:11 Intake & Output 06/13/21 06/14/21 06/14/21 18:59 06:59 18:59 Intake Total 2240 400 Output Total 650 800 Balance 1590 -400 Weight 108 kg Intake: IV 600 400 Sodium Chloride 0.9% 1, 600 400 000 ml @ 50 mls/hr IV . Q20H [facility] Rx#:[id number] Oral 1640 Output: Urine 650 800 Other: Voiding Method Indwelling Catheter Indwelling Catheter Indwelling Catheter # Voids 1 # Bowel Movements 2 1 - Exam Gen: awake, alert and oriented 3 HEENT: normocephalic, atraumatic, good hearing acuity, moist mucous membranes Resp: good air exchange, breathing comfortably with no accessory muscle use CVS: good distal perfusion x 4, GI: soft, NTTP, ND : no SPT, bilateral CVAT, carey catheter is present, grossly hemorrhagic MSK: no pitting edema, no clubbing Neuro: non-focal, moving all extremities Psych: cooperative, euthymic mood - Labs CBC & Chem 7: 06/14/21 08:11 06/14/21 08:11 Labs: Abnormal Lab Results - Last 24 Hours (Table) 06/13/21 06/13/21 06/14/21 Range/Units 16:52 20:26 07:26 RBC (4.30-5.90) m/uL Hgb (13.0-17.5) gm/dL Hct (39.0-53.0) % Plt Count (150-450) k/uL Lymphocytes # (1.0-4.8) k/uL Potassium (3.5-5.1) mmol/L Chloride (98-107) mmol/L BUN (9-20) mg/dL Creatinine (0.66-1.25) mg/dL Glucose (74-99) mg/dL POC Glucose (mg/dL) 172 H 143 H 143 H (75-99) mg/dL Calcium (8.4-10.2) mg/dL Total Protein (6.3-8.2) g/dL Albumin (3.5-5.0) g/dL 06/14/21 06/14/21 Range/Units 08:11 08:11 RBC 2.69 L (4.30-5.90) m/uL Hgb 8.7 L (13.0-17.5) gm/dL Hct 26.3 L (39.0-53.0) % Plt Count 116 L (150-450) k/uL Lymphocytes # 0.9 L (1.0-4.8) k/uL Potassium 3.2 L (3.5-5.1) mmol/L Chloride 109 H (98-107) mmol/L BUN 35 H (9-20) mg/dL Creatinine 3.45 H (0.66-1.25) mg/dL Glucose 126 H (74-99) mg/dL POC Glucose (mg/dL) (75-99) mg/dL Calcium 7.2 L (8.4-10.2) mg/dL Total Protein 4.6 L (6.3-8.2) g/dL Albumin 2.5 L (3.5-5.0) g/dL Microbiology - Last 24 Hours (Table) 06/08/21 18:40 Blood Culture - Preliminary Blood No Growth after 120 hours 06/08/21 13:57 Anaerobic Culture - Final Aspirate Assessment and Plan Assessment: Bilateral hydronephrosis Obstructive nephrolithiasis Post renal Acute kidney injury -Admit inpatient -Nephrology consult; hemodialysis 06/10, 06/11, 06/12 -Urology consult stat for nephroureteral stent completed on 06/08 -Pain control: Dilaudid when necessary -Stool softener -Nausea control -IV fluids, hourly urine output -Bicarb drip discontinued; -Started on calcium acetate, Phos improving -replete Ca, Mg, K as necessary -PT consult; OOB for meals TID Diabetes Hypertension Hyperlipidemia -Home medications reviewed and reconciled Patient is full code DVT prophylaxis with heparin 3 times a day
[2021-06-14] MEDS ORDERED: POTASSIUM CHLORIDE ER 20 MEQ TAB.ER PO STA (15:19)
[2021-06-14] MEDS: HEPARIN SODIUM,PORCINE/PF 5,000 UNIT/0.5 ML SYRINGE SQ SCH ×2 (15:52→22:51)
[2021-06-14 17:20] LABS: Glucose,Whole Blood 171 mg/dL (75-99)
--- NOTE | 2021-06-14 18:43 | PN ---
PROGRESS NOTE Patient is seen for followup for acute kidney injury. He is currently sitting up in bed, comfortable, not in any acute distress. Patient's is present at bedside. He has had good urine output with 24 hour urine output documented at about 2.8 L. The patient's dialysis was held yesterday. His serum creatinine is 3.45 from 3.1 prior to that. Overall, he states he feels fair with some improvement in appetite. PHYSICAL EXAMINATION: On examination today, blood pressure was 158/85, heart rate 61 per minute, he is afebrile. Examination of the heart S1, S2. Examination of lungs, decreased breath sounds at the bases. Abdomen is soft, nontender, obese. Examination of lower extremities shows trace edema bilaterally. 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 LAB: Show hemoglobin 8.7, sodium 142, potassium 3.2, chloride 109, BUN 35, creatinine 3.45. ASSESSMENT: 1. Acute kidney injury, multifactorial, including obstructive uropathy and acute tubular necrosis. Start hemodialysis on 06/10/2021 due to severe renal failure and uremia. I will continue to hold off on dialysis today, although serum creatinine is slightly higher. We will reassess in a.m. He continues to have good urine output. 2. Metabolic acidosis associated with renal failure, possibly related to metformin, improved with renal replacement therapy. 3. Hyperkalemia secondary to acute kidney injury and obstructive uropathy, now improved. 4. Bilateral hydronephrosis with bilateral ureteral calculi status post bilateral stents. 5. Hyperphosphatemia associated with renal failure, now improved. PLAN: Continue to hold dialysis today. Repeat labs in a.m. Add phosphorus to today's labs and replace potassium cautiously. MMODL / IJN: [id number] /
[2021-06-14 20:53] LABS: Glucose,Whole Blood 133 mg/dL (75-99)
[2021-06-14] MEDS: traZODone HCL 50 MG TAB PO PRN (20:57)
[2021-06-14] MEDS: INSULIN DETEMIR (LEVEMIR) 100 UNIT/ML SYR SQ SCH (20:57)
[2021-06-15 07:24] LABS: Glucose,Whole Blood 75 mg/dL (75-99)
[2021-06-15] MEDS: INSULIN ASPART (NovoLOG) 100 UNIT/ML VIAL SQ SCH ×3 (07:37→17:55)
[2021-06-15] MEDS: CALCIUM ACETATE 667 MG TAB PO SCH ×2 (08:31→12:30)
[2021-06-15] MEDS: HEPARIN SODIUM,PORCINE/PF 5,000 UNIT/0.5 ML SYRINGE SQ SCH ×3 (08:31→23:56)
[2021-06-15 10:14] LABS: African American GFR (CKD) 20 (>60 ml/min/1.73 sqM); Anion Gap 4 mmol/L; Blood Urea Nitrogen 31 mg/dL (9-20); Calcium 7.2 mg/dL (8.4-10.2); Carbon Dioxide 28 mmol/L (22-30); Chloride 110 mmol/L (98-107); Glucose 66 mg/dL (74-99); Non-African American GFR(CKD) 17 (>60 ml/min/1.73 sqM); Potassium 3.1 mmol/L (3.5-5.1); Sodium 142 mmol/L (137-145)
[2021-06-15 12:18] LABS: Glucose,Whole Blood 106 mg/dL (75-99)
--- NOTE | 2021-06-15 12:23 | P.CONS ---
History of Present Illness - Chief Complaint Medical debility - History of Present Illness I had the opportunity to see patient for inpatient rehab consultation with regard to medical debility. Patient admitted to [facility] June 08 with generalized weakness and bilateral flank pain and known history of kidney stones. Note diagnosis and treatment for covert pneumonia November this year has since been fairly week. Seen by Dr. Mayberry notes acute kidney injury with hyperkalemia. Seen by Dr. Arevalo who did perform cystoscopy and right and left stents. Chest x-ray demonstrates left effusion and infiltrate. CT abdomen and pelvis demonstrates bilateral hydronephrosis. Guarded therapies. PT reports s upervision for bed mobility, transfers, gait 40 feet with roller walker. OT reports supervision for all basic self-care tasks. Speech therapy saw swallow and within functional limits. Previous functional history as elicited from patient: 71-year-old right-handed white male who is lives and 2 floor home with . Since November the is benign cooking, laundry, driving. Both retired. Patient is scheduled standing shower, gait without device. PCP Dr. Graff. Review of Systems Review of systems: ENT: Denies sneezes or discharge. Eyes: Denies discharge or photophobia. Cardiac: Denies chest pain or palpitation. Pulmonary: Denies cough or shortness of breath. Gastrointestinal: Denies nausea, emesis, constipation, diarrhea. Genitourinary: Today status post left flank pain and difficulty with urination. Musculoskeletal: Denies muscle or bone aches. Neurologic: Generalized weakness. Endocrine: Denies shakes or sweats. Oncology: Denies cancers. Dermatologic: Denies rash, itching, pruritus. ALLERGY/immunology: Denies sneezes, rashes. Past Medical History Past Medical History: Asthma, Diabetes Mellitus, Hyperlipidemia, Hypertension, Skin Disorder Additional Past Medical History / Comment(s): hx heart murmer, kidney stones, umbilical hernia, History of Any Multi-Drug Resistant Organisms: None Reported Past Surgical History: Orthopedic Surgery Additional Past Surgical History / Comment(s): rt knee surgery, mole removed from rt upper chest, rt shoulder-rotator cuff, kidney stones blasted multiple ti mes Past Anesthesia/Blood Transfusion Reactions: No Reported Reaction Past Psychological History: Depression Smoking Status: Never smoker Past Alcohol Use History: None Reported Past Drug Use History: None Reported - Past Family History Sister(s) Family Medical History: Deep Vein Thrombosis (DVT) Medications and Allergies Home Medications Medication Instructions Recorded Confirmed Type lisinopriL [Zestril] 10 mg PO QAM 08/12/16 06/08/21 History Escitalopram Oxalate [Lexapro] 30 mg PO DAILY 09/19/18 06/08/21 History Multivitamins, Thera [Multivitamin 1 tab PO DAILY 09/19/18 06/08/21 History (formulary)] Gabapentin [Neurontin] 400 mg PO TID 06/12/20 06/08/21 History Lovastatin [Mevacor] 40 mg PO DAILY 06/12/20 06/08/21 History Ketorolac [Toradol] 10 mg PO Q8HR #15 tab 06/01/21 06/08/21 Rx Ondansetron Odt [Zofran Odt] 4 mg PO Q8HR PRN #10 tab 06/01/21 06/08/21 Rx Tamsulosin [Flomax] 0.4 mg PO DAILY #7 cap 06/01/21 06/08/21 Rx metFORMIN HCL ER [Glucophage XR] 1,000 mg PO BID 06/01/21 06/08/21 History Semaglutide [Ozempic] 0.5 mg SQ Q7D 06/08/21 06/08/21 History Allergies Allergy/AdvReac Type Severity Reaction Status Date / Time No Known Allergies Allergy Verified 06/08/21 08:29 Physical Exam Vitals: Vital Signs Temp Pulse Resp BP Pulse Ox 06/15/21 06:45 98.3 F 58 L 18 150/72 95 06/15/21 05:00 98.2 F 66 16 151/79 97 06/14/21 20:36 98.5 F 65 16 154/79 97 Intake and Output 06/14/21 06/15/21 06/15/21 22:59 06:59 14:59 Intake Total 600 Output Total 800 1000 Balance -200 -1000 Intake: IV 600 Sodium Chloride 0.9% 1, 600 000 ml @ 50 mls/hr IV . Q20H [facility] Rx#:[id number] Output: Urine 800 1000 Other: Voiding Method Indwelling Catheter Indwelling Catheter # Bowel Movements 1 Weight 106.5 kg Skin: Good color, texture, turgor. General: Medium build and comfortable appearance. Appears younger than stated age. Head: Normocephalic, atraumatic. Eyes: Symmetric. Pupils equal round. Ears: Symmetric. Hearing within normal limits. Mouth: Clear. Neck: Supple. Carotid without bruit. Cardiac: Regular rate and rhythm. Lungs: Clear anteriorly and posteriorly. Abdomen: Soft active nontender. Extremities: Normal tone. Neurological: Mental status: Alert, cooperative, pleasant. Cranial nerves: Symmetric facial tone and trapezius. Motor: Active movement all 4 limbs. Legs at best antigravity. Sensation: Intact throughout. DTRs: Symmetric and equal throughout. Mobility: Reports legs are weak and requires assistance for safe standing and mobility. Results CBC & Chem 7: 06/14/21 08:11 06/15/21 05:33 Labs: Abnormal Lab Results - Last 24 Hours (Table) 06/14/21 06/14/21 06/15/21 Range/Units 17:12 20:51 05:33 Potassium 3.1 L (3.5-5.1) mmol/L Chloride 110 H (98-107) mmol/L BUN 31 H (9-20) mg/dL Creatinine 3.42 H (0.66-1.25) mg/dL Glucose 66 L (74-99) mg/dL POC Glucose (mg/dL) 171 H 133 H (75-99) mg/dL Calcium 7.2 L (8.4-10.2) mg/dL Microbiology - Last 24 Hours (Table) 06/08/21 18:40 Blood Culture - Final Blood No Growth after 144 hours Assessment and Plan (1) Acute renal failure Current Visit: Yes Status: Acute Code(s): N17.9 - ACUTE KIDNEY FAILURE, UNSPECIFIED SNOMED Code(s): 08804975 (2) Kidney stone on left side Current Visit: No Status: Acute Code(s): N20.0 - CALCULUS OF KIDNEY SNOMED Code(s): 27670691 Plan: Impression: 1. Medical debility. 2. History covid Pneumonia this year. 3. Acute kidney injury. 4. Renal lithiasis. 5. Hypertension. 6. Dyslipidemia. 7. Diabetes. 8. Asthma. Comments and plan: At this time patient does have concerns about return to home which appear to be legitimate. Therapies however great patient is supervision or not requiring any definite physical assistance. Can investigate possible inpatient rehab but in fact may require alternative placement due to anticipated insurance rules.
[2021-06-15 13:05] VITALS: BMI 30.9
--- NOTE | 2021-06-15 13:56 | P.PN ---
Subjective Progress Note Date: 06/15/21 Pt is greatly improved in terms of mentation, also quickly improving in physical debility. Now able ambulate with min-assist. Nutrition is improved, calorie intake adequate. Stable BUN/Cr since dialysis held on 06/13, UOP is good, and has cleared of bloody tinge. Objective - Vital Signs Vital signs: Vital Signs Temp 98.2 F 06/15/21 12:46 Pulse 57 L 06/15/21 12:46 Resp 16 06/15/21 12:46 BP 157/44 06/15/21 12:46 Pulse Ox 98 06/15/21 12:46 Intake & Output 06/14/21 06/15/21 06/15/21 18:59 06:59 18:59 Intake Total 600 Output Total 800 1000 Balance -200 -1000 Weight 106.5 kg 106.5 kg Intake: IV 600 Sodium Chloride 0.9% 1, 600 000 ml @ 50 mls/hr IV . Q20H [facility] Rx#:[id number] Output: Urine 800 1000 Other: Voiding Method Indwelling Catheter Indwelling Catheter Indwelling Catheter # Bowel Movements 1 - Exam Gen: awake, alert and oriented 3 HEENT: normocephalic, atraumatic, good hearing acuity, moist mucous membranes Resp: good air exchange, breathing comfortably with no accessory muscle use CVS: good distal perfusion x 4, GI: soft, NTTP, ND : no SPT, bilateral CVAT, carey catheter is present, grossly hemorrhagic MSK: no pitting edema, no clubbing Neuro: non-focal, moving all extremities Psych: cooperative, euthymic mood - Labs CBC & Chem 7: 06/14/21 08:11 06/15/21 05:33 Labs: Abnormal Lab Results - Last 24 Hours (Table) 06/14/21 06/14/21 06/15/21 Range/Units 17:12 20:51 05:33 Potassium 3.1 L (3.5-5.1) mmol/L Chloride 110 H (98-107) mmol/L BUN 31 H (9-20) mg/dL Creatinine 3.42 H (0.66-1.25) mg/dL Glucose 66 L (74-99) mg/dL POC Glucose (mg/dL) 171 H 133 H (75-99) mg/dL Calcium 7.2 L (8.4-10.2) mg/dL 06/15/21 Range/Units 12:17 Potassium (3.5-5.1) mmol/L Chloride (98-107) mmol/L BUN (9-20) mg/dL Creatinine (0.66-1.25) mg/dL Glucose (74-99) mg/dL POC Glucose (mg/dL) 106 H (75-99) mg/dL Calcium (8.4-10.2) mg/dL Microbiology - Last 24 Hours (Table) 06/08/21 18:40 Blood Culture - Final Blood No Growth after 144 hours Assessment and Plan Assessment: Bilateral hydronephrosis Obstructive nephrolithiasis Post renal Acute kidney injury -Admit inpatient -Nephrology consult; hemodialysis 06/10, 06/11, 06/12 -Urology consult stat for nephroureteral stent completed on 06/08 -Pain control: Dilaudid when necessary -Stool softener -Nausea control -IV fluids, hourly urine output -Bicarb drip discontinued; -Started on calcium acetate, Phos improving -replete Ca, Mg, K as necessary -PT consult; Up ad tyree Diabetes Hypertension Hyperlipidemia -Home medications reviewed and reconciled Patient is full code DVT prophylaxis with heparin 3 times a day
[2021-06-15] MEDS ORDERED: POTASSIUM CHLORIDE ER 20 MEQ TAB.ER PO STA (13:57)
[2021-06-15] MEDS: SODIUM CHLORIDE 0.9% 1,000 ML IV SCH ×2 (15:47→23:54)
--- NOTE | 2021-06-15 15:54 | PN ---
PROGRESS NOTE The patient is seen for followup for acute kidney injury. His dialysis was held yesterday for possibility of recovery of renal function. The patient has had good urine output. He is currently awake, comfortable, not in any acute distress. This morning creatinine came back again at 3.4. Therefore, we will continue to hold off on the dialysis for now. PHYSICAL EXAMINATION: Blood pressure was 157/44, heart rate 57 per minute. Patient is afebrile. Examination of the heart S1, S2. Examination of the lungs, bilateral breath sounds are heard. Abdomen is soft, nontender. Examination of lower extremities shows trace edema bilaterally. 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 LAB: Show sodium 142, potassium 3.1, chloride 110, CO2 is 28, BUN 31, creatinine 3.42. ASSESSMENT: 1. Acute kidney injury, ATN, as well as obstructive uropathy status post bilateral ureteral stents, status post dialysis which was started on 06/10/2021. The patient's hemodialysis has been on hold for the last two days. Serum creatinine is stable. We will recheck again in a.m. Most likely he will be able to come off dialysis. 2. Bilateral hydronephrosis, bilateral ureteral calculi status post bilateral ureteral stent placement. 3. Hyperphosphatemia associated with renal failure, improving. 4. Metabolic acidosis associated with renal failure, possibly related to metformin. 5. Hyperkalemia associated with acute kidney injury, obstructive uropathy, now improved. PLAN: EVITA Salcido, hold dialysis and repeat labs again in a.m. ROMIE / WILLIAMS: [id number] /
[2021-06-15 17:34] LABS: Glucose,Whole Blood 137 mg/dL (75-99)
[2021-06-15 20:57] LABS: Glucose,Whole Blood 160 mg/dL (75-99)
[2021-06-15] MEDS: traZODone HCL 50 MG TAB PO PRN (21:11)
[2021-06-15] MEDS: INSULIN DETEMIR (LEVEMIR) 100 UNIT/ML SYR SQ SCH (21:11)
[2021-06-16 07:12] LABS: Glucose,Whole Blood 73 mg/dL (75-99)
[2021-06-16] MEDS ORDERED: ESCITALOPRAM 10 MG TAB PO SCH (09:00)
[2021-06-16] MEDS: INSULIN ASPART (NovoLOG) 100 UNIT/ML VIAL SQ SCH ×2 (09:36→14:05)
[2021-06-16] MEDS: HEPARIN SODIUM,PORCINE/PF 5,000 UNIT/0.5 ML SYRINGE SQ SCH (09:48)
[2021-06-16 12:40] LABS: Glucose,Whole Blood 122 mg/dL (75-99)
[2021-06-16 12:48] VITALS: BP 151/80; RESP 20; TEMP 98.1
[2021-06-16 13:01] VITALS: PULSE 62
[2021-06-16 13:54] LABS: African American GFR (CKD) 23 (>60 ml/min/1.73 sqM); Anion Gap 4 mmol/L; Blood Urea Nitrogen 30 mg/dL (9-20); Calcium 7.2 mg/dL (8.4-10.2); Carbon Dioxide 28 mmol/L (22-30); Chloride 110 mmol/L (98-107); Glucose 116 mg/dL (74-99); Non-African American GFR(CKD) 20 (>60 ml/min/1.73 sqM); Potassium 3.9 mmol/L (3.5-5.1); Sodium 142 mmol/L (137-145)
--- NOTE | 2021-06-16 14:41 | P.DS ---
Providers Date of admission: 06/08/21 10:46 Expected date of discharge: 06/16/21 Attending physician: Rakan Vides MD Consults: 06/08/21 10:49 Consult Physician Routine Consulting Provider: Vincent Arevalo Consult Reason/Comments: renal calculus Do you want consulting provider notified?: Already Contacted Consult Physician Urgent Consulting Provider: Bello Nice Consult Reason/Comments: ARF Do you want consulting provider notified?: Already Contacted Consult Physician Urgent Consulting Provider: Adi Mayberry Consult Reason/Comments: ARF Do you want consulting provider notified?: Already Contacted 06/10/21 08:55 Consult Physician Routine Consulting Provider: Luiz Dexter Consult Reason/Comments: hemodialysis catheter insertion Do you want consulting provider notified?: Yes 06/15/21 09:55 Consult Physician Routine Consulting Provider: Bartolo Marquez Consult Reason/Comments: in pt rehab please Do you want consulting provider notified?: Yes Primary care physician: Kasia Rico MD Hospital Course: Discharge Diagnosis: Bilateral hydronephrosis Obstructive nephrolithiasis Post renal Acute kidney injury Diabetes Hypertension Hyperlipidemia Hospital Course: Patient is a 71-year-old male with a past medical history of hypertension, hyperlipidemia, type II [id number] diabetes mellitus, and multiple recurrent kidney stones. He presented to the hospital on 06/08/21 with a chief complaint of bilateral flank pain/back pain that progressively worsened over the past week. Patient was seen and fully evaluated and found to have acute pyelonephritis, acute renal failure and hyperkalemia. Potassium was 6.7, bicarb was 6, and creatinine was 11.6. Patient underwent CT abdomen and pelvis which revealed bilateral hydronephrosis with obstructed stone on the left. Patient was admitted under our services with consults to urology and nephrology. Danielle catheter was placed and patient underwent stat nephroureteral stent placement. Due to being severely acidotic, patient was placed on bicarb infusion and transferred to the ICU. During stay patient also found to be hypotensive and required levophed infusion. Patient underwent dialysis on 06/10/21, 06/11/21, and 06/12/21. Acidosis improved, bicarb infusion completed. Vital signs improved, vasopressors discontinued. Over 8 day hospitalization period, patient's condition improving. He completed course of antibiotics with ceftriaxone. Urine culture was negative and blood culture revealed no growth after 144 hours. Danielle catheter being removed as advised by urology. Patient underwent evaluation by PT/OT. Patient is being discharged to [facility] for continued rehabilitation. Patient to follow-up with PCP, nephrology, and urology. Urologist stated they will arrange for outpatient bilateral ureterocopies used to address renal stones and recommended discontinuation of Danielle catheter prior to discharge. Lisinopril, lovastatin, metformin, Toradol, and Ozempic discontinued at this time and can be further addressed upon follow up with PCP and nephrology. Pt started on sliding scale along with long acting levemir and amlodopine. Patient stable for discharge to SNF at this time. Repeat BMP to be completed in 3 days. Physical examination: Patient seen and examined at bedside. Patient sitting up at bedside. He denies having any complaints or concerns at this time. He just completed therapy with PT/OT. He continued to report mild difficulties with stairs. Denies having any further complaints at this time. Danielle catheter being removed and voiding trial to be completed prior to discharge. Patient medically stable for discharge at this time. Renal function continues to improve. Patient to follow up outpatient with nephrology and urology and PCP. Repeat BMP to be completed in 3 days with results to be sent to PCP, nephrology, and urology for follow-up. Vital signs reviewed and stable. General: Nontoxic, no distress and appears stated age. Derm: Skin warm and dry, normal coloration for ethnicity. Head: Atraumatic, normocephalic and symmetric. Eyes: EOMs intact, no lid lag, and anicteric sclera Mouth: no lip lesions, mucus membranes moist Cardiovascular: regular rate and rhythm with normal S1S2, no murmur, positive posterior tibial pulses bilaterally, and cap refill < 2 seconds. Lungs: Respirations even, regular, and unlabored on room air. Lungs CTA bilatera lly, no rhonchi, no rales, no wheezing, and no accessory muscle usage. Abdominal: soft, nontender to palpation, no guarding, no appreciable organomegaly Ext: ROM intact. No gross muscle atrophy, no edema, no contractures Neuro: Speech clear, face symmetrical and CN II-XII grossly intact with no noted focal neuro deficits Psych: Alert and oriented to person, place, time, and situation. Appropriate and pleasant affect. A total of 45 minutes of time were spent preparing this complex discharge summary. Patient Condition at Discharge: Stable Plan - Discharge Summary Discharge Rx Participant: Yes New Discharge Prescriptions: New Insulin Detemir (Levemir) [Levemir] 10 unit SQ HS ml INSULIN ASPART (NovoLOG) [NovoLOG (formulary)] 0 unit SQ AC-TID ml amLODIPine [Norvasc] 5 mg PO DAILY 30 Days #30 tab Acetaminophen Tab [Tylenol] 650 mg PO Q6HR PRN tab PRN Reason: Mild Pain Or Fever > 100.5 Continue Escitalopram Oxalate [Lexapro] 30 mg PO DAILY Multivitamins, Thera [Multivitamin (formulary)] 1 tab PO DAILY Gabapentin [Neurontin] 400 mg PO TID Ondansetron Odt [Zofran ODT] 4 mg PO Q8HR PRN #10 tab PRN Reason: Nausea Tamsulosin [Flomax] 0.4 mg PO DAILY #7 cap Discontinued lisinopriL [Zestril] 10 mg PO QAM Lovastatin [Mevacor] 40 mg PO DAILY metFORMIN HCL ER [Glucophage XR] 1,000 mg PO BID Ketorolac [Toradol] 10 mg PO Q8HR #15 tab Semaglutide [Ozempic] 0.5 mg SQ Q7D Discharge Medication List Escitalopram Oxalate [Lexapro] 30 mg PO DAILY 09/19/18 [History] Multivitamins, Thera [Multivitamin (formulary)] 1 tab PO DAILY 09/19/18 [History] Gabapentin [Neurontin] 400 mg PO TID 06/12/20 [History] Ondansetron Odt [Zofran ODT] 4 mg PO Q8HR PRN #10 tab 06/01/21 [Rx] Tamsulosin [Flomax] 0.4 mg PO DAILY #7 cap 06/01/21 [Rx] Acetaminophen Tab [Tylenol] 650 mg PO Q6HR PRN tab 06/16/21 [Rx] INSULIN ASPART (NovoLOG) [NovoLOG (formulary)] 0 unit SQ AC-TID ml 06/16/21 [Rx] Insulin Detemir (Levemir) [Levemir] 10 unit SQ HS ml 06/16/21 [Rx] amLODIPine [Norvasc] 5 mg PO DAILY 30 Days #30 tab 06/16/21 [Rx] Follow up Appointment(s)/Referral(s): Roseanna Romero MD [STAFF PHYSICIAN] - 1 Week Vincent Arevalo MD [STAFF PHYSICIAN] - 1 Week Kasia Rico MD [Primary Care Provider] - 1-2 days Discharge Disposition: TRANSFER TO SNF/ECF
--- NOTE | 2021-06-16 20:33 | PN ---
PROGRESS NOTE Patient is seen for followup for acute kidney injury. He had dialysis on initial admission. However, dialysis has been on hold, as renal function has been improving. Serum creatinine was at 3.4 for the last couple of days. Patient continues to have good urine output. If his renal function is further improved, the dialysis catheter can be removed. Labs are pending at the time when patient was seen. On examination this morning, blood pressure was 160/85, heart rate 62 per minute. Patient is afebrile. EXAMINATION OF THE HEART: S1 and S2. EXAMINATION OF LUNGS: Bilateral breath sounds are heard. Abdomen is soft, non-tender. Examination of lower extremities shows edema 1+ bilaterally. NETWORK OPERATIONS PROJECT MANAGER EXAM: Grossly intact. Labs are pending from today. ASSESSMENT: 1. Acute kidney injury, acute tubular necrosis and obstructive uropathy. His renal function seems to be improving. Labs are pending from today. If renal function continues to improve, patient's dialysis catheter will need to be discontinued and he could be discharged with plans for close followup with Nephrology and Urology post discharge. 2. Bilateral hydronephrosis with bilateral ureteral calculi, status post bilateral ureteral stent placement. To follow up with Urology. 3. Metabolic acidosis associated with renal failure, possibly related to metformin as well, currently resolved. 4. Hyperkalemia associated with acute kidney injury, obstructive uropathy, now improved. 5. Hyperphosphatemia, improving with improvement in renal function. Discontinue PhosLo. PLAN: Follow up on labs from today. If renal function continues to improve, dialysis catheter will need to be discontinued and patient could be discharged with plans for close followup as outpatient. MMODL / IJN: [id number] /
--- NOTE | 2021-06-17 12:39 | P.PN ---
Progress Note - Text Progress Note Date: 06/17/21 Pt was discharged prior to removal of dialysis catheter. Called and spoke with patient's , Charlotte Powell at 11:49 a.m this morning, She was notified that this is very important to have removed at office by Dr. Dexter. Pt's stated that she will have her , (Mr. Powell) to the [facility] office today to have dialysis catheter removed.
== END 2021-06-16 16:30 | DRG 853 ==
LOC: EC 06:52 → 2SICU 10:46 → 5NMEDONC 06-12 14:23
PROVIDERS: ADMIT Internal Medicine; ATTEND Internal Medicine
PROC: 0T788DZ Dilation of Bilateral Ureters with Intraluminal Device, Via Natural or Artificial Opening Endoscopic (ICD-10-PCS; principal; 2021-06-08 15:00)
PROC: 3E033XZ Introduction of Vasopressor into Peripheral Vein, Percutaneous Approach (ICD-10-PCS; 2021-06-09)
PROC: 06HY33Z Insertion of Infusion Device into Lower Vein, Percutaneous Approach (ICD-10-PCS; 2021-06-10)
DX: A41.9 Sepsis, unspecified organism (principal); R65.21 Severe sepsis with septic shock; R57.1 Hypovolemic shock; N17.0 Acute kidney failure with tubular necrosis; G93.41 Metabolic encephalopathy; N20.2 Calculus of kidney with calculus of ureter; N13.6 Pyonephrosis; E87.0 Hyperosmolality and hypernatremia; E87.2 Acidosis; Z20.822 Contact with and (suspected) exposure to COVID-19; N18.9 Chronic kidney disease, unspecified; I12.9 Hypertensive chronic kidney disease with stage 1 through stage 4 chronic kidney disease, or unspecified chronic kidney disease; E83.39 Other disorders of phosphorus metabolism; E83.51 Hypocalcemia; E86.0 Dehydration; E87.5 Hyperkalemia; E87.6 Hypokalemia; E11.22 Type 2 diabetes mellitus with diabetic chronic kidney disease; E78.5 Hyperlipidemia, unspecified; J45.909 Unspecified asthma, uncomplicated; F32.9 Major depressive disorder, single episode, unspecified; Z79.84 Long term (current) use of oral hypoglycemic drugs; Z87.442 Personal history of urinary calculi; Z87.01 Personal history of pneumonia (recurrent); Z86.16 Personal history of COVID-19; Z82.49 Family history of ischemic heart disease and other diseases of the circulatory system; Z79.899 Other long term (current) drug therapy; R27.8 Other lack of coordination
CPT/HCPCS: 36415; 71045; 71046; 74176; 74230; 80048; 80053; 81001; 82040; 82150; 82330; 83036; 83605; 83690; 83735; 84100; 84145; 84484; 85025; 85610; 85730; 86704; 86706; 87040; 87070; 87075; 87086; 87205; 87340; 87635; 90935; 93005; 94002; 94640; 96361; 96374; 96375; 96376; 99291

== ENCOUNTER 2021-07-02 11:41 | Day surgery (SDC) | payer MEDICARE ==
[~2021-07-02 11:41] MED LIST changes: -DEXAMETHASONE SOD PHOSPHATE 10 MG/ML 1 ML VIAL IV ONE; -LACTATED RINGERS 1,000 ML IV SCH; +LIDOCAINE 1% (10MG/ML) FOR IV START INTRADERMA PRN
[2021-07-02] MEDS: LACTATED RINGERS 1,000 ML IV SCH ×2 (12:17→12:36)
[2021-07-02] MEDS ORDERED: SODIUM CHLORIDE 0.9% 1,000 ML IV ONE (12:36)
[2021-07-02 12:45] LABS: Glucose,Whole Blood 162 mg/dL (75-99)
--- NOTE | 2021-07-02 13:36 | P.HPIHPCON ---
History of Present Illness H&P Date: 07/02/21 Chief Complaint: Bilateral renal stones This is a 71-year-old male admitted to the hospital with renal failure, bilateral hydronephrosis on 06/08, CT of that time showed evidence of a left distal ureteral stone, recently passed right ureteral stone. He underwent bilateral stent placement on June 08. He presents today for definitive stone management. Of note the CT showed bilateral renal stones in addition to the left sided distal ureteral stone. Discussed with him the option of doing a bilateral ureteroscopy with holmium laser. Discussed the risk which includes but not limited to bleeding, infection, injury to ureter. Discussed also with him risk from anesthesia. He understood all the risk and agreed to proceed Consent for Procedure: I have explained the operation/procedure to the patient, including the risks, benefits, side effects, alternative therapies (including not receiving the proposed treatment or service), the likelihood of the patient achieving his/her goals, and potential recuperation problems for the procedure/sedation/analgesia, as well as any blood products, if indicated. I also explained to the patient the risks, benefits and side effects of the alternatives, as well as the risks related to not receiving the proposed procedure, care, treatment, or services. - Constitutional Constitutional: Denies chills, Denies fever - Cardiovascular Cardiovascular: Denies chest pain, Denies shortness of breath - Respiratory Respiratory: Denies cough, Denies 7 - Gastrointestinal Gastrointestinal: Denies abdominal pain, Denies diarrhea, Denies nausea, Denies vomiting Past Medical History Past Medical History: Asthma, Diabetes Mellitus, Hyperlipidemia, Hypertension, Skin Disorder Additional Past Medical History / Comment(s): hx heart murmer, kidney stones, umbilical hernia, History of Any Multi-Drug Resistant Organisms: None Reported Past Surgical History: Orthopedic Surgery Additional Past Surgical History / Comment(s): rt knee surgery, mole removed from rt upper chest, rt shoulder-rotator cuff, kidney stones blasted multiple times Past Anesthesia/Blood Transfusion Reactions: No Reported Reaction Past Psychological History: Depression Smoking Status: Never smoker Past Alcohol Use History: None Reported Past Drug Use History: None Reported - Past Family History Sister(s) Family Medical History: Deep Vein Thrombosis (DVT) Medications and Allergies Home Medications Medication Instructions Recorded Confirmed Type Escitalopram Oxalate [Lexapro] 30 mg PO QAM 09/19/18 07/02/21 History Multivitamins, Thera [Multivitamin 1 tab PO DAILY 09/19/18 06/29/21 History (formulary)] Gabapentin [Neurontin] 400 mg PO Q8H 06/12/20 07/02/21 History Ondansetron Odt [Zofran ODT] 4 mg PO Q8HR PRN #10 tab 06/01/21 06/29/21 Rx Acetaminophen Tab [Tylenol] 650 mg PO Q6HR PRN tab 06/16/21 06/29/21 Rx INSULIN ASPART (NovoLOG) [NovoLOG 0 unit SQ AC-TID ml 06/16/21 07/02/21 Rx (formulary)] Insulin Detemir (Levemir) [Levemir] 10 unit SQ HS ml 06/16/21 07/02/21 Rx Benzocaine/Menthol Lozeng [Cepacol 1 lozenge PO DIRECTED PRN 06/29/21 07/02/21 History lozenge] Tamsulosin [Flomax] 0.4 mg PO QAM 06/29/21 07/02/21 History amLODIPine [Norvasc] 5 mg PO QAM 06/29/21 07/02/21 History Allergies Allergy/AdvReac Type Severity Reaction Status Date / Time No Known Allergies Allergy Verified 07/02/21 12:18 Surgical - Exam Vital Signs Temp Pulse Resp BP Pulse Ox 96.7 F L 65 18 159/75 98 07/02/21 12:21 07/02/21 12:21 07/02/21 12:21 07/02/21 12:21 07/02/21 12:21 - General no distress, no pain - Eyes PERRL, normal ocular movement - Respiratory normal expansion, normal respiratory effort - Abdomen Abdomen: soft, non tender Results - Labs 07/02/21 12:39 Abnormal Lab Results - Last 24 Hours (Table) 07/02/21 Range/Units 12:42 POC Glucose (mg/dL) 162 H (75-99) mg/dL Diabetes panel 07/02/21 Range/Units 12:39 Potassium 4.5 (3.5-5.1) mmol/L Pituitary panel 07/02/21 Range/Units 12:39 Potassium 4.5 (3.5-5.1) mmol/L Adrenal panel 07/02/21 Range/Units 12:39 Potassium 4.5 (3.5-5.1) mmol/L Assessment and Plan Assessment: OR for bilateral ureteroscopy's, with holmium laser lithotripsy, stone basketing and stent removal versus exchange
[2021-07-02] MEDS ORDERED: MIDAZOLAM 2 MG/2 ML VIAL ONE (13:45)
[2021-07-02] MEDS ORDERED: fentaNYL (PF) 50 MCG/ML 2 ML AMP ONE (13:45)
[2021-07-02] MEDS ORDERED: PROPOFOL 10 MG/ML 20 ML VIAL IV ONE (13:45)
[2021-07-02] MEDS ORDERED: LIDOCAINE 1% INJ 10MG/ML (20 ML MDV) ONE (13:45)
[2021-07-02 14:45] VITALS: TEMP 97
--- NOTE | 2021-07-02 15:08 | P.OP ---
Date of Procedure: 07/02/21 Preoperative Diagnosis: Bilateral renal stones, left ureteral stone Postoperative Diagnosis: Bilateral renal stone Procedure(s) Performed: Cystoscopy, bilateral ureteroscopy, holmium laser lithotripsy and stent removal Implants: None Anesthesia: DIANA Surgeon: Vincent Arevalo Estimated Blood Loss (ml): 1 Pathology: none sent Condition: stable Disposition: PACU Indications for Procedure: This is a 71-year-old male admitted to the hospital with renal failure, bilateral hydronephrosis on 06/08, CT of that time showed evidence of a left distal ureteral stone, recently passed right ureteral stone. He underwent bilateral stent placement on June 08. He presents today for definitive stone management. Of note the CT showed bilateral renal stones in addition to the left sided distal ureteral stone. Discussed with him the option of doing a bilateral ureteroscopy with holmium laser. Discussed the risk which includes but not limited to bleeding, infection, injury to ureter. Discussed also with him risk from anesthesia. He understood all the risk and agreed to proceed Operative Findings: Multiple bilateral small renal stones Description of Procedure: Patient was brought to the operating room, general anesthesia was induced. He was prepped and draped in sterile fashion and placed in dorsal lithotomy position. A cystoscopy fitted with a 21-Prydeinig sheath was inserted per urethra, cystoscopy was performed showed no abnormality within the bladder. Attention was then carried to the left ureteral orifice, the stent was grasped and removed to the meatus. Next a sensor wire was advanced through the stent and the stent was removed with the wire in place. Attention was then carried to the right ureteral stent, the stent was grasped and removed to the meatus, a sensor wire was advanced through the stent. Next a semirigid ureteroscope was inserted per urethra and advanced up the left ureteral orifice. The scope was advanced all the way up to the UPJ which showed no evidence of stones, pullback ureteroscopy was performed showed no injury to the ureter or any ureteral stone. Attention was then carried to the right ureteral orifice, the semirigid ureteroscope was advanced up the right ureteral orifice, no stones were visualized along the course of the ureter. Pullback ureteroscopy was performed which showed no injury to ureter or any ureteral stones. Next an 1113 Prydeinig access sheath was passed over the wire and into the proximal ureter. The flexible ureteroscope was inserted through the access sheath, renoscopy was performed showed multiple small renal stones. Stones were dusted using the holmium laser. Repeat renoscopy showed no sizable stone or injury to the kidney. Pullback ureteroscopy was performed which showed no injury to the ureter or any ureteral stone. At this time the access sheath was advanced up the right ureter and into the proximal ureter over the wire. Next the flexible ureteroscope was inserted through the access sheath, renoscopy was performed showed multiple small stones within the lower pole of the right kidney. The stones were dusted using the holmium laser. Repeat renoscopy showed no sizable fragments or injury to the kidney. Pullback ureteroscopy was performed showed no injury to the ureter or any ureteral fragments. There was no ureteral edema on either side, thus a stent was not placed. The bladder was emptied at the end of the case. Patient tolerated the procedure well was taken to recovery in stable condition
--- NOTE | 2021-07-02 15:49 | FL ---
Fluoroscopy HISTORY: Pain 17 seconds fluoroscopy time supplied to the referring clinician. 2 intraoperative C-arm images docum ent the procedure. See dictated report from urology.
[2021-07-02 15:57] LABS: Glucose,Whole Blood 129 mg/dL (75-99)
[2021-07-02 16:22] VITALS: BP 146/80; PULSE 62; RESP 24
== END 2021-07-02 16:41 | disposition home or self-care (01) ==
LOC: OR 11:41
PROVIDERS: ATTEND Urology
DX: N20.2 Calculus of kidney with calculus of ureter (principal); E11.22 Type 2 diabetes mellitus with diabetic chronic kidney disease; I12.9 Hypertensive chronic kidney disease with stage 1 through stage 4 chronic kidney disease, or unspecified chronic kidney disease; N18.9 Chronic kidney disease, unspecified; E78.5 Hyperlipidemia, unspecified; L98.9 Disorder of the skin and subcutaneous tissue, unspecified; Z86.19 Personal history of other infectious and parasitic diseases; J45.909 Unspecified asthma, uncomplicated; R01.1 Cardiac murmur, unspecified; Z87.442 Personal history of urinary calculi; K42.9 Umbilical hernia without obstruction or gangrene; Z98.890 Other specified postprocedural states; Z82.49 Family history of ischemic heart disease and other diseases of the circulatory system; Z79.4 Long term (current) use of insulin; Z79.899 Other long term (current) drug therapy
CPT/HCPCS: 84132; 52356; C1769; J2250; J0690; J2405; J2001; J3010; J2704

== ENCOUNTER → 2022-04-13 | Outpatient (CLI) | payer MEDICARE ==
--- NOTE | 2022-04-13 13:21 | XR ---
EXAM TYPE: LUMBAR SPINE X RAY SERIES COMPARISON: NONE HISTORY: Pain TECHNIQUE: 4 views are submitted. FINDINGS: Alignment is anatomic. The pedicles are intact. The transverse processes are intact. There is exte nsive vascular calcifications. Severe facet arthropathy lower lumbar spine with multilevel hypertroph ic changes. Severe degenerative disc disease L5-S1 with moderate changes at L4-L5. Mild diffuse osteo penia. IMPRESSION: 1. Multilevel degenerative disc disease and facet arthropathy. Most marked L4-5 and L5-S1 suspected b ilateral foraminal encroachment.
== END | disposition home or self-care (01) ==
LOC: RADXRMAIN 12:24
PROVIDERS: ATTEND Internal Medicine Geriatric Medicine
DX: M47.816 Spondylosis without myelopathy or radiculopathy, lumbar region (principal); M51.37 Other intervertebral disc degeneration, lumbosacral region
CPT/HCPCS: 72100

== ENCOUNTER → 2022-07-15 | Outpatient (CLI) | payer MEDICARE ==
--- NOTE | 2022-07-15 10:10 | US ---
EXAMINATION TYPE: US kidneys/renal and bladder DATE OF EXAM: 07/15/2022 COMPARISON: CT 06/08/2021, ULS 05/21/2020 CLINICAL HISTORY: N20.0 CALCULUS OF KIDNEY. EXAM MEASUREMENTS: Right Kidney: 10.0 x 5.2 x 4.8 cm Left Kidney: 10.6 x 4.7 x 5.4 cm Right Kidney: At the inferior pole and echogenic foci with shadowing and ring down artifact is visual ized, measuring 7mm. Left Kidney: At the inferior pole and exophytic anechoic cyst is visualized, measuring 3.4 x 2.7 x 4. 0 cm. Bladder: wnl Bilateral Jets seen: Left visualized, right not visualized There is no evidence for hydronephrosis at this point in time. IMPRESSION: 1. Nonobstructive right renal calculus. 2. Left renal cyst.
== END | disposition home or self-care (01) ==
LOC: RADUSWWP 09:13
PROVIDERS: ATTEND Urology
DX: N20.0 Calculus of kidney (principal); N28.1 Cyst of kidney, acquired
CPT/HCPCS: 76770

== ENCOUNTER → 2022-08-13 | Outpatient (CLI) | payer MEDICARE ==
[2022-08-13 11:36] LABS: Appearance,Urine Clear (Clear); Bilirubin,Urine Negative (Negative); Blood,Urine Negative (Negative); Color,Urine Yellow; Glucose,Urine (UA) 4+ (Negative); Hyaline Casts,Urine 1 /lpf (0-2); Ketones,Urine Negative (Negative); Leukocyte Esterase,Urine Negative (Negative); Mucus,Urine Rare /hpf; Nitrite,Urine Negative (Negative); PH, Urine 5.5 (5.0-8.0); Protein,Urine 1+ (Negative); RBC,Urine 1 /hpf (0-5); Specific Gravity,Urine 1.025 (1.001-1.035); Squamous Epithelial Cell,Urine <1 /hpf (0-4); Urobilinogen,Urine <2.0 mg/dL (<2.0); WBC,Urine 1 /hpf (0-5)
[2022-08-13 22:39] LABS: African American GFR (CKD) 38.1 (60.0-200.0); Anion Gap 11.5 mmol/L (10.00-18.00); BUN/Creat Ratio 11.15 Ratio (12.00-20.00); Basophils # (A) 0.07 X 10*3/uL (0.00-0.10); Basophils % (A) 0.9 %; Blood Urea Nitrogen 22.3 mg/dL (9.0-27.0); Calcium 9.6 mg/dL (8.7-10.3); Carbon Dioxide 26.5 mmol/L (20.0-27.5); Eosinophils # (A) 0.35 X 10*3/uL (0.04-0.35); Eosinophils % (A) 4.3 %; HCT 40.2 % (39.6-50.0); Immature Grans, Automated 0.4 %; Lymphocytes # (A) 1.42 X 10*3/uL (0.90-5.00); Lymphocytes % (A) 17.4 %; MCH 29.5 pg (27.0-32.0); MCHC 32.3 g/dL (32.0-37.0); MCV 91.4 fL (80.0-97.0); Mean Platelet Volume 9.7 fL (9.5-12.2); Monocytes # (A) 0.62 X 10*3/uL (0.20-1.00); Monocytes % (A) 7.6 %; NRBC Per 100 WBC 0 /100 WBCS (0.0-0.0); Neutrophils # (A) 5.66 X 10*3/uL (1.80-7.70); Neutrophils % (A) 69.4 %; Non-African American GFR(CKD) 32.8 (60.0-200.0); Platelet Count 223 X 10*3/uL (140-440); Potassium 4.2 mmol/L (3.5-5.5); RDW 13.1 % (11.5-14.5); WBC 8.15 X 10*3/uL (4.50-10.00)
== END | disposition home or self-care (01) ==
LOC: LABPAT 11:17
PROVIDERS: ATTEND Urology
DX: Z01.812 Encounter for preprocedural laboratory examination (principal); N20.0 Calculus of kidney; R31.29 Other microscopic hematuria
CPT/HCPCS: 80048; 81001; 85025; 87086

== ENCOUNTER 2022-08-24 10:38 | Day surgery (SDC) | payer MEDICARE ==
[2022-08-19 15:03] VITALS: BMI 28.5
--- NOTE | 2022-08-22 12:03 | P.HPIHPCON ---
History of Present Illness H&P Date: 08/22/22 Chief Complaint: Right renal stone This is a 72-year-old male with history of recurrent uric acid stones. Underwent renal ultrasound that showed evidence of a 7 mm right-sided renal stone. He is symptomatically from his stone. Option of observation versus surgical removal was discussed with him. He agreed to proceed with right-sided ureteroscopy with holmium laser. The risk which are not limited to bleeding, infection, injury to ureter. Discussed also the potential of persistent pain even with stone removal, as the pain might not be of renal etiology Consent for Procedure: I have explained the operation/procedure to the patient, including the risks, benefits, side effects, alternative therapies (including not receiving the proposed treatment or service), the likelihood of the patient achieving his/her goals, and potential recuperation problems for the procedure/sedation/analgesia, as well as any blood products, if indicated. I also explained to the patient the risks, benefits and side effects of the alternatives, as well as the risks related to not receiving the proposed procedure, care, treatment, or services. Past Medical History Past Medical History: Asthma, Diabetes Mellitus, Hyperlipidemia, Hypertension, Renal Disease Additional Past Medical History / Comment(s): hx heart murmer, multiple kidney stones, hx renal failure., herniated discs with back pain. History of Any Multi-Drug Resistant Organisms: None Reported Past Surgical History: Orthopedic Surgery Additional Past Surgical History / Comment(s): rt knee surgery, mole removed from rt upper chest, rt shoulder-rotator cuff, lithotripsy multiple times Past Anesthesia/Blood Transfusion Reactions: No Reported Reaction, Motion Sickness Additional Past Anesthesia/Blood Transfusion Reaction / Comment(s): difficulty waking up Past Psychological History: Depression Smoking Status: Never smoker Past Alcohol Use History: Occasional Past Drug Use History: None Reported Additional Drug Use History / Comment(s): occasional cbd gummy - Past Family History Sister(s) Family Medical History: Deep Vein Thrombosis (DVT) Medications and Allergies Home Medications Medication Instructions Recorded Confirmed Type Escitalopram Oxalate [Lexapro] 20 mg PO QAM 09/19/18 08/19/22 History Gabapentin [Neurontin] 400 mg PO BID 06/12/20 08/19/22 History Albuterol Inhaler [Ventolin Hfa 1 puff INHALATION DIRECTED PRN 08/19/22 08/19/22 History Inhaler] Cbd Gummy 1 dose PO DIRECTED 08/19/22 History INSULIN LISPRO (humaLOG) [humaLOG] 15 units SQ BID-W/MEALS 08/19/22 08/19/22 History INSULIN LISPRO (humaLOG) [humaLOG] 18 units SQ AC-LUNCH 08/19/22 08/19/22 History Insulin Detemir (Levemir) [Levemir] 50 unit SQ QAM 08/19/22 08/19/22 History Lovastatin [Mevacor] 40 mg PO DAILY 08/19/22 08/19/22 History Midodrine [ProAmatine] 5 mg PO DAILY 08/19/22 08/19/22 History Mirabegron [Myrbetriq] 25 mg PO DAILY 08/19/22 08/19/22 History lisinopriL [Zestril] 10 mg PO DAILY 08/19/22 08/19/22 History Allergies Allergy/AdvReac Type Severity Reaction Status Date / Time No Known Allergies Allergy Verified 08/19/22 14:36
[~2022-08-24 10:38] MED LIST changes: +DEXAMETHASONE SOD PHOSPHATE 4 MG/ML 1 ML VIAL IV ONE; +LACTATED RINGERS 1,000 ML IV SCH; -LIDOCAINE 1% (10MG/ML) FOR IV START INTRADERMA PRN
[2022-08-24] MEDS ORDERED: LACTATED RINGERS 1,000 ML IV ONE (11:26)
[2022-08-24 11:39] LABS: Glucose,Whole Blood 169 mg/dL (70-110)
--- NOTE | 2022-08-24 11:43 | XR ---
EXAMINATION TYPE: XR KUB DATE OF EXAM: 08/24/2022 11:00 AM INDICATION: Patient age:Male; 72 years old; Reason for study: lithotripsy with Dr Arevalo 08/24/22; COMPARISON: CT 06/08/2021, KUB 06/15/2020. TECHNIQUE: One radiographic view of the abdomen was obtained. FINDINGS: Small 3 mm density near the right renal sinus. No left renal calculi identified. No left re nal contour to liver identified. There is few pelvic probable phleboliths as seen on prior CTs. The b owel gas pattern is nonspecific without dilated loops of small or large bowel. IMPRESSION: Small 3 mm right renal calculus identified near the renal sinus. No additional calculus identified bi laterally.
[2022-08-24] MEDS ORDERED: MIDAZOLAM 2 MG/2 ML VIAL ONE (12:08)
[2022-08-24] MEDS ORDERED: LIDOCAINE 2% INJ 20 MG/ML (2 ML VIAL) ONE (12:08)
[2022-08-24] MEDS ORDERED: fentaNYL (PF) 50 MCG/ML 2 ML AMP ONE (12:08)
[2022-08-24] MEDS ORDERED: SUCCINYLCHOLINE CHLORIDE 200 MG/10 ML VIAL IV ONE (12:08)
[2022-08-24] MEDS ORDERED: ePHEDrine 50 MG/ML 1 ML VIAL ONE (12:08)
[2022-08-24] MEDS ORDERED: PROPOFOL 10 MG/ML 20 ML VIAL IV ONE (12:08)
[2022-08-24 13:09] VITALS: TEMP 97.3
--- NOTE | 2022-08-24 13:13 | FL ---
Intraoperative/procedural fluoroscopic services were provided for right renal calculus with Dr. Randolph romano. Total fluoroscopy time is 3 seconds with a total of 1 submitted image to PACS. Please see the oper ative note for further details.
[2022-08-24] MEDS ORDERED: hydrALAZINE HCL 20 MG/ML 1 ML VIAL IVP ONE (13:16)
--- NOTE | 2022-08-24 13:21 | P.OP ---
Date of Procedure: 08/24/22 Preoperative Diagnosis: Right Renal stone Postoperative Diagnosis: Same Procedure(s) Performed: Cystoscopy, right ureteroscopy, holmium laser lithotripsy, stone basketing Implants: None Anesthesia: RONALDOA Surgeon: Vincent Arevalo Estimated Blood Loss (ml): 1 Pathology: other (right renal stone) Condition: stable Disposition: PACU Indications for Procedure: This is a 72-year-old male with history of recurrent uric acid stones. Underwent renal ultrasound that showed evidence of a 7 mm right-sided renal stone. He is symptomatically from his stone. Option of observation versus surgical removal was discussed with him. He agreed to proceed with right-sided ureteroscopy with holmium laser. The risk which are not limited to bleeding, infection, injury to ureter. Discussed also the potential of persistent pain even with stone removal, as the pain might not be of renal etiology Operative Findings: right sided lower pole stone ,multiple small renal stone Description of Procedure: Patient brought to the operating room, general anesthesia was induced. He was prepped and draped in sterile fashion and placed in dorsal lithotomy position. Cystoscopy fitted with a 21-Kittitian sheath was inserted per urethra, cystoscopy was performed which showed no abnormality within the bladder. Of note patient did have an obstructive prostate but it was fairly short. At this time attention was carried to the right ureteral orifice which was intubated with a sensor wire. Next the scope was removed with the wire in place. Next under fluoroscopy a 1113 Kittitian access sheath was passed into the proximal ureter. Next the flexible ureteroscope was inserted through the access sheath, renoscopy was performed which showed a stone within the lower pole. Which was dusted. Sizable fragments were removed and sent to analysis. There was multiple small stones throughout the kidney that were dusted. Repeat renoscopy showed no sizable stones or injury to the kidney. Pullback ureteroscopy was performed which showed no injury to the ureter or any ureteral stones. The bladder was emptied at the end of the case. Patient tolerated procedure well was taken to recovery in stable condition
[2022-08-24 13:33] LABS: Glucose,Whole Blood 158 mg/dL (70-110)
[2022-08-24 14:50] VITALS: PULSE 82; RESP 20
[2022-08-24 15:03] VITALS: BP 152/75
== END 2022-08-24 15:49 | disposition home or self-care (01) ==
LOC: OR 10:38
PROVIDERS: ATTEND Urology
DX: N20.0 Calculus of kidney (principal); J45.909 Unspecified asthma, uncomplicated; E78.5 Hyperlipidemia, unspecified; E11.9 Type 2 diabetes mellitus without complications; I10 Essential (primary) hypertension; N28.9 Disorder of kidney and ureter, unspecified; F32.A Depression, unspecified; F10.90 Alcohol use, unspecified, uncomplicated; M54.9 Dorsalgia, unspecified; Z98.890 Other specified postprocedural states; Z79.899 Other long term (current) drug therapy; Z79.4 Long term (current) use of insulin; Z79.51 Long term (current) use of inhaled steroids; Z83.2 Family history of diseases of the blood and blood-forming organs and certain disorders involving the immune mechanism
CPT/HCPCS: 52353; 82365; 74018; C1769; J2250; J0330; J0360; J1100; J0690; J2405; J3010; J2704; J2001

== ENCOUNTER → 2023-02-07 | Outpatient (CLI) | payer MEDICARE ==
--- NOTE | 2023-02-07 15:18 | US ---
EXAMINATION TYPE: US kidneys/renal and bladder DATE OF EXAM: 02/07/2023 COMPARISON: US 07/15/2022, CT abdomen and pelvis 06/08/2021 CLINICAL INDICATION: Male, 72 years old with history of N20.0 KIDNEY STONE; H/O kidney stones EXAM MEASUREMENTS: Right Kidney: 10.8 x 5.1 x 5.2 cm Left Kidney: 11.9 x 6.1 x 4.8 cm Right Kidney: No evidence of hydro/ Possible renal calculus lower pole= 0.6 cm Left Kidney: Cyst lower pole= 4.3 x 3.3 x 4.5 cm/ No evidence of hydro Bladder: wnl Bilateral Jets seen: No There is no evidence for hydronephrosis at this point in time. Lower pole calculus measuring up to 0. 6 cm. No solid masses are identified. Left lower pole renal simple appearing thin-walled cyst measur ing up to 4.5 cm. Corticomedullary junction is maintained bilaterally. The urinary bladder is anechoi c. IMPRESSION: 1. No hydronephrosis. 2. Nonobstructive right renal calculus. 3. Left renal lower pole simple cyst.
== END | disposition home or self-care (01) ==
LOC: RADUSWWP 14:08
PROVIDERS: ATTEND Internal Medicine Geriatric Medicine
DX: N20.0 Calculus of kidney (principal); N28.1 Cyst of kidney, acquired
CPT/HCPCS: 76770

== ENCOUNTER → 2023-04-01 | Outpatient (CLI) | payer MEDICARE ==
[2023-04-01 13:17] LABS: Protein/Creatinine Ratio,Urine 0.58
[2023-04-02 06:47] LABS: Basophils # (A) 0.05 X 10*3/uL (0.00-0.10); Basophils % (A) 0.6 %; Eosinophils # (A) 0.47 X 10*3/uL (0.04-0.35); Eosinophils % (A) 5.9 %; HCT 40.3 % (39.6-50.0); HGB 13.1 d/dL (13.0-17.0); Lymphocytes # (A) 1.54 X 10*3/uL (0.90-5.00); Lymphocytes % (A) 19.3 %; MCH 31.1 pg (27.0-32.0); MCHC 32.5 d/dL (32.0-37.0); MCV 95.7 FL (80.0-97.0); Monocytes # (A) 0.54 X 10*3/uL (0.20-1.00); Monocytes % (A) 6.8 %; NRBC Per 100 WBC 0 X 10*3/uL (0.00-0.01); Neutrophils # (A) 5.33 X 10*3/uL (1.80-7.70); Platelet Count 212 X 10*3/uL (140-440); RBC 4.21 X 10*6/uL (4.40-5.60); RDW 13.1 % (11.5-14.5); WBC 7.96 X 10*3/uL (4.50-10.00)
[2023-04-02 08:12] LABS: Appearance,Urine Clear (Clear); Bilirubin,Urine Negative (Negative); Blood,Urine Small (Negative); Color,Urine Yellow (Yellow); Ketones,Urine Negative (Negative); Nitrite,Urine Negative (Negative); PH, Urine 5.5; Specific Gravity,Urine 1.016 (1.001-1.030); Urobilinogen,Urine 0.2 E.U./DL
[2023-04-02 08:17] LABS: % Iron Saturation 21.05 (15.00-50.00); ALT 19 U/L (10-49); AST 23 U/L (14-35); Albumin 4.4 d/dL (3.8-4.9); Alkaline Phosphatase 44 U/L (41-126); BUN/Creat Ratio 11.53 Ratio (12.00-20.00); Blood Urea Nitrogen 21.9 mg/dL (9.0-27.0); Calcium 9.6 mg/dL (8.7-10.3); Carbon Dioxide 25.8 mmol/L (21.6-31.8); Chloride 106 mmol/L (96-109); Globulin 2.1 d/dL (1.6-3.3); Glucose 98 mg/dL (70-110); Iron 68 UG/DL (65-175); Magnesium 1.8 mg/dL (1.5-2.4); Phosphorus 2.7 mg/dL (2.4-5.1); Potassium 4.2 mmol/L (3.5-5.5); Sodium 144 mmol/L (135-145); Total Bilirubin 0.6 mg/dL (0.3-1.2); Total Iron Binding Capacity 323 UG/DL (228-460); Total Protein 6.5 d/dL (6.2-8.2); Uric Acid 4.9 mg/dL (3.7-8.7)
[2023-04-02 08:22] LABS: Bacteria,Urine None Seen (None Seen)
== END | disposition home or self-care (01) ==
LOC: LABWHC1 10:34
PROVIDERS: ATTEND Internal Medicine
DX: N25.81 Secondary hyperparathyroidism of renal origin (principal); N18.32 Chronic kidney disease, stage 3b; D63.1 Anemia in chronic kidney disease; E55.9 Vitamin D deficiency, unspecified; M10.9 Gout, unspecified; N39.0 Urinary tract infection, site not specified; R80.9 Proteinuria, unspecified
CPT/HCPCS: 36415; 80053; 81001; 82043; 82306; 82570; 82728; 83540; 83550; 83735; 83970; 84100; 84156; 84550; 85025

== ENCOUNTER → 2025-01-17 | Outpatient (CLI) | payer MEDICARE ==
--- NOTE | 2025-01-17 12:08 | XR ---
EXAMINATION TYPE: XR KUB DATE OF EXAM: 01/17/2025 9:48 AM COMPARISON: 08/24/2022 CLINICAL INDICATION: Male, 74 years old with history of N20.0 CALCULUS OF KIDNEY; PHH, left upper and lower abdominal pain, concern for left-sided kidney stones. TECHNIQUE: One radiographic view of the abdomen was obtained. FINDINGS: Possible vague 1.1 cm calculus lower pole left kidney. There is scattered mild stool throughout. No d ilated small bowel loops. Multiple pelvic phleboliths are unchanged. IMPRESSION: Possible 1.1 cm left lower pole renal stone versus bowel content. Mild stool burden. Nonobstructive b owel gas pattern. Pelvic phleboliths. [facility], Workstation: [id number], 01/17/2025 12:05 PM
== END | disposition home or self-care (01) ==
LOC: RADXRMAIN 09:23
PROVIDERS: ATTEND Urology
DX: N20.0 Calculus of kidney (principal)
CPT/HCPCS: 74018

== ENCOUNTER 2025-02-04 11:08 | Day surgery (SDC) | payer MEDICARE ==
[2025-01-31 16:42] VITALS: BMI 26.9
[~2025-02-04 11:08] MED LIST changes: -DEXAMETHASONE SOD PHOSPHATE 4 MG/ML 1 ML VIAL IV ONE; -LACTATED RINGERS 1,000 ML IV SCH; +MIDAZOLAM 2 MG/2 ML VIAL IV PRN; -ONDANSETRON 4 MG/2 ML VIAL IVP ONE
--- NOTE | 2025-02-04 11:47 | XR ---
EXAMINATION TYPE: XR KUB DATE OF EXAM: 02/04/2025 11:25 AM COMPARISON: 01/17/2025 CLINICAL INDICATION: Male, 74 years old with history of KIDNEY STONES, TECHNIQUE: XR KUB view(s) obtained. FINDINGS: There is a normal bowel gas pattern. Psoas margins are normal. No organomegaly is present. There is a 1.5 cm renal stone in the inferior pole left kidney. Phleboliths within the pelvis. A dist al left ureteral stone is not excluded measuring 0.3 cm in the left hemipelvis. This calcification wa s present on the prior exam IMPRESSION: 1. 1.5 cm inferior pole left renal stone. 2. Distal left ureteral stone not excluded [facility], , 02/04/2025 11:44 AM
--- NOTE | 2025-02-04 12:14 | P.HPIHPCON ---
History of Present Illness H&P Date: 02/04/25 Chief Complaint: Left renal stone This is a 74-year-old male with history of recurrent kidney stones. He has been having symptomatic left flank pain, underwent a KUB that showed evidence of a 9 mm left-sided renal stone. Discussed with him the option of ESWL versus uretero scopy. He agreed to proceed with ureteroscopy with holmium laser. He is aware of the risk which include but not limited to bleeding, infection, injury to the ureter Consent for Procedure: I have explained the operation/procedure to the patient, including the risks, benefits, side effects, alternative therapies (including not receiving the proposed treatment or service), the likelihood of the patient achieving his/her goals, and potential recuperation problems for the procedure/sedation/analgesia, as well as any blood products, if indicated. I also explained to the patient the risks, benefits and side effects of the alternatives, as well as the risks related to not receiving the proposed procedure, care, treatment, or services. Past Medical History Past Medical History: Asthma, Diabetes Mellitus, Hyperlipidemia, Hypertension Additional Past Medical History / Comment(s): hx heart murmer, kidney stones, umbilical hernia, DISLOCATED LEFT SHOULDER IN OCTOBER-GOING TO THERAPY History of Any Multi-Drug Resistant Organisms: None Reported Past Surgical History: Orthopedic Surgery Additional Past Surgical History / Comment(s): rt knee surgery, mole removed from rt upper chest, rt shoulder-rotator cuff, kidney stones blasted multiple times, CYSTOSCOPIES, COLONOSCOPY, BILAT CATARACTS REMOVED WITH LENS IMPLANTS Past Anesthesia/Blood Transfusion Reactions: No Reported Reaction Smoking Status: Never smoker - Past Family History Sister(s) Family Medical History: Deep Vein Thrombosis (DVT) Medications and Allergies Home Medications Medication Instructions Recorded Confirmed Type Escitalopram Oxalate [Lexapro] 20 mg PO QAM 09/19/18 01/31/25 History INSULIN LISPRO (humaLOG) [humaLOG] 10 units SQ AC-BRKFST 08/19/22 01/31/25 History INSULIN LISPRO (humaLOG) [humaLOG] 15 units SQ BID-W/MEALS 08/19/22 01/31/25 History Atorvastatin [Lipitor] 20 mg PO DAILY 01/31/25 01/31/25 History Dapagliflozin Propanediol [Farxiga] 5 mg PO DAILY 01/31/25 01/31/25 History Insulin Glargine,Hum.rec.anlog 45 units SQ DAILY 01/31/25 01/31/25 History [Wendy Price] Semaglutide [Ozempic] 1 mg SQ TAVARES 01/31/25 01/31/25 History Sodium Bicarbonate Tab 650 mg PO DAILY 01/31/25 01/31/25 History allopurinoL 100 mg PO DAILY 01/31/25 01/31/25 History lisinopriL [Zestril] 5 mg PO DAILY 01/31/25 01/31/25 History Allergies Allergy/AdvReac Type Severity Reaction Status Date / Time No Known Allergies Allergy Verified 01/31/25 16:23 Surgical - Exam - General no distress, moderate pain - Eyes normal ocular movement, no pale - ENT normal nares, normal mucosa - Respiratory normal expansion, normal respiratory effort - Abdomen Abdomen: soft, non tender, no distended Assessment and Plan Assessment: OR for left-sided ureteroscopy, holmium laser lithotripsy, stone basketing and stent insertion
[2025-02-04 12:29] LABS: Glucose,Whole Blood 107 mg/dL (70-110)
[2025-02-04] MEDS: IV FLUID CONTINUATION 1,000 ML IV ONE (12:34)
[2025-02-04] MEDS: LACTATED RINGERS 1,000 ML IV SCH (12:34)
[2025-02-04] MEDS: LIDOCAINE 1% (10MG/ML) FOR IV START INTRADERMA PRN (12:35)
[2025-02-04] MEDS: ONDANSETRON 4 MG/2 ML VIAL IVP ONE (12:36)
[2025-02-04] MEDS: DEXAMETHASONE SOD PHOSPHATE 4 MG/ML 1 ML VIAL IV ONE (12:36)
[2025-02-04] MEDS ORDERED: fentaNYL (PF) 50 MCG/ML 2 ML AMP ONE (12:41)
[2025-02-04] MEDS ORDERED: LIDOCAINE 1% INJ 10MG/ML (20 ML MDV) ONE (12:41)
[2025-02-04] MEDS ORDERED: MIDAZOLAM 2 MG/2 ML VIAL ONE (12:41)
[2025-02-04] MEDS ORDERED: ePHEDrine 50 MG/ML 1 ML VIAL ONE (12:41)
[2025-02-04] MEDS ORDERED: PROPOFOL 10 MG/ML 20 ML VIAL IV ONE (12:41)
[2025-02-04] MEDS: ceFAZolin 2 GM in DEXTROSE 5% IN WATER 50 ML IVPB PRN (12:46)
[2025-02-04 13:44] VITALS: TEMP 97.3
--- NOTE | 2025-02-04 13:46 | FL ---
Fluoroscopy INDICATION: Pain FINDINGS: Fluoroscopy time: 7.9 seconds. Total dose area product (DAP) in uGy*m?, mGy*cm? (or similar): 0.6766 Images obtained: 4. Images document stent placement IMPRESSION: 1. Documentation of fluoroscopy. [facility], , 02/04/2025 1:44 PM
--- NOTE | 2025-02-04 13:48 | P.OP ---
Date of Procedure: 02/04/25 Preoperative Diagnosis: Left renal stone Postoperative Diagnosis: Same Procedure(s) Performed: Cystoscopy, left ureteroscopy, holmium laser lithotripsy, stone basketing and stent insertion Implants: 6 [place] by 26 cm stents in the left ureter left on a string Anesthesia: DIANA Surgeon: Vincent Arevalo Estimated Blood Loss (ml): 1 Pathology: other (Left renal stone) Condition: stable Disposition: PACU Indications for Procedure: This is a 74-year-old male with history of recurrent kidney stones. He has been having symptomatic left flank pain, underwent a KUB that showed evidence of a 9 mm left-sided renal stone. Discussed with him the option of ESWL versus ureteroscopy. He agreed to proceed with ureteroscopy with holmium laser. He is aware of the risk which include but not limited to bleeding, infection, injury to the ureter Operative Findings: Large left lower pole renal stone Description of Procedure: Patient brought to the operating room, general anesthesia was induced. He was prepped and draped in sterile fashion placed in dorsolithotomy position. Cystoscopy fitted through the 21 [place] sheath was inserted per urethra, cystoscopy was performed showed no abnormality within the bladder. Of note patient had a large occlusive prostate. Attention was then carried to the left ureteral orifice which was intubated with a sensor wire, the wire was advanced under fluoroscopy into the kidney. Next under fluoroscopy an 1113 [place] access sheath was passed over the wire and into the proximal ureter. The flexible ureteroscope was inserted through the access sheath, renoscopy was performed showed a large stone in the lower pole. At this time using the holmium laser the stone was dusted, sizable fragment were removed using a stone basket. Repeat renoscopy showed no sizable fragments or injury to the kidney. Pullback ureteroscopy was performed showed no injury to ureter or any ureteral stones, as ureteroscope was withdrawn a sensor wire was advanced through. Next a ureteral stent was passed over the wire, the proximal curl was visualized on fluoroscopy and the distal curl was visualized using the cystoscope. The bladder was emptied at the end of the case. Patient tolerated procedure well was taken to recovery in stable condition. The stent was left on a string and taped to the patient penis
[2025-02-04 14:35] VITALS: RESP 16
[2025-02-04 14:53] VITALS: BP 137/71; PULSE 71
== END 2025-02-04 15:15 | disposition home or self-care (01) ==
LOC: OR 11:08
PROVIDERS: ATTEND Urology
DX: N20.0 Calculus of kidney (principal); J45.909 Unspecified asthma, uncomplicated; I12.9 Hypertensive chronic kidney disease with stage 1 through stage 4 chronic kidney disease, or unspecified chronic kidney disease; N18.9 Chronic kidney disease, unspecified; F32.A Depression, unspecified; E11.22 Type 2 diabetes mellitus with diabetic chronic kidney disease; E78.5 Hyperlipidemia, unspecified; Z79.4 Long term (current) use of insulin; Z79.84 Long term (current) use of oral hypoglycemic drugs; Z79.02 Long term (current) use of antithrombotics/antiplatelets; Z79.899 Other long term (current) drug therapy
CPT/HCPCS: 82365; 74018; 52356; J2250; J1100; J0690; J2405; J2003; J3010; J2704

== ENCOUNTER 2025-02-21 03:46 | Observation (INO) | payer MEDICARE ==
[2025-02-21] MEDS: PANTOPRAZOLE 40 MG/10 ML VIAL IVP STA (04:40)
[2025-02-21] MEDS: KETOROLAC 15 MG/ML 1 ML VIAL IVP STA (04:41)
[2025-02-21] MEDS: ONDANSETRON 4 MG/2 ML VIAL IVP STA (04:44)
[2025-02-21] MEDS: LACTATED RINGERS 1,000 ML IV ONE ×4 (04:47→21:31)
[2025-02-21 04:50] LABS: Basophils # (A) 0.08 10*3/uL (0.00-0.10); Basophils % (A) 0.5 %; Eosinophils # (A) 0.53 10*3/uL (0.04-0.35); Eosinophils % (A) 3.5 %; HCT 40.6 % (39.6-50.0); HGB 13.5 g/dL (13.0-17.0); Lymphocytes # (A) 1.82 10*3/uL (0.90-5.00); Lymphocytes % (A) 12.1 %; MCH 30.5 pg (27.0-32.0); MCHC 33.3 g/dL (32.0-37.0); MCV 91.9 fL (80.0-97.0); Mean Platelet Volume 9.6 fL (9.5-12.2); Monocytes # (A) 1.17 10*3/uL (0.20-1.00); Monocytes % (A) 7.8 %; Neutrophils # (A) 11.35 10*3/uL (1.80-7.70); Neutrophils % (A) 75.6 %; Platelet Count 197 10*3/uL (140-440); RBC 4.42 10*6/uL (4.40-5.60); RDW 13.2 % (11.5-14.5); WBC 15.02 10*3/uL (4.50-10.00)
[2025-02-21 05:02] LABS: ALT 19 U/L (4-49); AST 35 U/L (17-59); African American GFR (CKD) 37 (>60 ml/min/1.73 sqM); Albumin 4.4 g/dL (3.5-5.0); Alkaline Phosphatase 52 U/L (38-126); Amylase 175 U/L (30-110); Anion Gap 11 mmol/L; Blood Urea Nitrogen 31 mg/dL (9-20); Calcium 9.1 mg/dL (8.4-10.2); Carbon Dioxide 25 mmol/L (22-30); Chloride 106 mmol/L (98-107); Glucose 120 mg/dL (74-99); Lipase 951 U/L (23-300); Non-African American GFR(CKD) 32 (>60 ml/min/1.73 sqM); Potassium 3.7 mmol/L (3.5-5.1); Sodium 142 mmol/L (137-145); Total Bilirubin 0.8 mg/dL (0.2-1.3); Total Protein 7.2 g/dL (6.3-8.2)
[2025-02-21 06:16] LABS: Appearance,Urine Clear (Clear); Bilirubin,Urine Negative (Negative); Blood,Urine Negative (Negative); Color,Urine Light Yellow; Glucose,Urine (UA) 4+ (Negative); Ketones,Urine Negative (Negative); Leukocyte Esterase,Urine Negative (Negative); Nitrite,Urine Negative (Negative); PH, Urine 5.5 (5.0-8.0); Protein,Urine Trace (Negative); Specific Gravity,Urine 1.028 (1.001-1.035); Urobilinogen,Urine <2.0 mg/dL (<2.0)
--- NOTE | 2025-02-21 06:27 | CT ---
EXAM: CT Abdomen and Pelvis Without Intravenous Contrast CLINICAL HISTORY: ITS.REASON CT Reason: abdominal pain. right flank TECHNIQUE: Axial computed tomography images of the abdomen and pelvis without intravenous contrast. CTDI is 12.4 mGy and DLP is 862.7 mGy-cm. This CT exam was performed using one or more of the following dose reduction techniques: automated exposure control, adjustment of the mA and/or kV according to patient size, and/or use of iterative reconstruction technique. COMPARISON: CT dated 06/08/2021. FINDINGS: Lung bases: Unremarkable. No mass. No consolidation. ABDOMEN: Liver: Mild enlargement of the liver. No evidence of hepatic mass. Gallbladder and bile ducts: Unremarkable. No calcified stones. No ductal dilation. Pancreas: Unremarkable. No ductal dilation. Spleen: Unremarkable. No splenomegaly. Adrenals: Unremarkable. No mass. Kidneys and ureters: Bilateral nephrolithiasis. Bosniak type I left renal cyst which does not require follow-up. No urolithiasis or renal obstruction. Stomach and bowel: Colonic diverticulosis without evidence of acute diverticulitis. No obstruction. PELVIS: Appendix: Enlargement of the appendix with surrounding inflammatory stranding with 2 appendicoliths. The appendical diameter measures 2.1 cm. Bladder: Unremarkable. No stones. Reproductive: Unremarkable as visualized. ABDOMEN and PELVIS: Intraperitoneal space: Unremarkable. No free air. No significant fluid collection. Bones/joints: Mild degenerative changes are seen within the spine and hips. No acute fracture. No dislocation. Soft tissues: Unremarkable. Vasculature: Calcifications are seen within a nondilated aorta. Lymph nodes: Unremarkable. No enlarged lymph nodes. IMPRESSION: Findings consistent with acute appendicitis.
[2025-02-21] MEDS: MORPHINE SULFATE 4 MG/ML SYRINGE IVP STA (06:45)
--- NOTE | 2025-02-21 06:57 | ED ---
General Adult HPI - General Chief complaint: Abdominal Pain Stated complaint: R Side Abdominal Pain Time Seen by Provider: 02/21/25 04:25 Source: patient, RN notes reviewed, old records reviewed Mode of arrival: ambulatory - History of Present Illness Initial comments: Patient is a 74-year-old male who presents emergency department complaining of right-sided abdominal pain. Started yesterday. Has been causing worsening pain with some mild diarrhea as well as nausea and nonbilious nonbloody emesis. Denies any pain with peeing or blood in his pee. Does have a history of kidney stones and feels like this is different. Denies any chest pain or shortness of breath. Denies constipation. Denies any fevers. Presents for further evaluation at this time. - Related Data Home Medications Medication Instructions Recorded Confirmed Escitalopram Oxalate [Lexapro] 20 mg PO QAM 09/19/18 02/04/25 INSULIN LISPRO (humaLOG) [humaLOG] 10 units SQ AC-BRKFST 08/19/22 02/04/25 INSULIN LISPRO (humaLOG) [humaLOG] 15 units SQ BID-W/MEALS 08/19/22 02/04/25 Atorvastatin [Lipitor] 20 mg PO DAILY 01/31/25 02/04/25 Dapagliflozin Propanediol [Farxiga] 5 mg PO DAILY 01/31/25 02/04/25 Insulin Glargine,Hum.rec.anlog 45 units SQ DAILY 01/31/25 02/04/25 [Toujeo Solostar] Semaglutide [Ozempic] 1 mg SQ TAVARES 01/31/25 02/04/25 Sodium Bicarbonate Tab 650 mg PO DAILY 01/31/25 02/04/25 allopurinoL 100 mg PO DAILY 01/31/25 02/04/25 lisinopriL [Zestril] 5 mg PO DAILY 01/31/25 02/04/25 Previous Rx's Medication Instructions Recorded Cephalexin [Keflex] 500 mg PO Q8HR #15 cap 02/04/25 Allergies Allergy/AdvReac Type Severity Reaction Status Date / Time No Known Allergies Allergy Verified 02/21/25 03:56 Review of Systems ROS Statement: Those systems with pertinent positive or pertinent negative responses have been documented in the HPI. Review of Systems: CONST: Denies fever EYES: Denies blurry vision ENT: Denies nasal congestion C/V: Denies Chest pain RESP: Denies shortness of breath GI: Endorses abdominal pain : Denies dysuria SKIN: Denies rash. MSK: Denies joint pain. NEURO: Denies headache ROS Other: All systems not noted in ROS Statement are negative. Past Medical History Past Medical History: Asthma, Diabetes Mellitus, Hyperlipidemia, Hypertension Additional Past Medical History / Comment(s): hx heart murmer, kidney stones, umbilical hernia, DISLOCATED LEFT SHOULDER IN OCTOBER-GOING TO THERAPY History of Any Multi-Drug Resistant Organisms: None Reported Past Surgical History: Orthopedic Surgery Additional Past Surgical History / Comment(s): rt knee surgery, mole removed from rt upper chest, rt shoulder-rotator cuff, kidney stones blasted multiple times, CYSTOSCOPIES, COLONOSCOPY, BILAT CATARACTS REMOVED WITH LENS IMPLANTS Past Anesthesia/Blood Transfusion Reactions: No Reported Reaction Past Psychological History: Depression Smoking Status: Never smoker Past Alcohol Use History: None Reported Past Drug Use History: None Reported - Past Family History Sister(s) Family Medical History: Deep Vein Thrombosis (DVT) General Exam - General Exam Comments Initial Comments: General: He is in mild to moderate distress secondary to active nausea and vomiting. HEAD: Normal with no signs of head trauma. EYES: EOMI ENT: Hearing grossly intact. Normal oropharynx. RESPIRATORY: Clear breath sounds bilaterally. No wheezes, rales, or rhonchi. C/V: Regular rate and rhythm. S1 and S2 auscultated, no edema, peripheral pulses 2+ and intact throughout ABD: Abdomen soft, nondistended. Tender palpation in the right lower quadrant and right flank region. No guarding or rebound tenderness. Tenderness to percussion of the right CVA. EXT: No obvious deformity. SKIN: No rashes or lesions observed on exposed skin. NEURO: Alert and orient x 4. Course Vital Signs 02/21/25 03:50 Temperature 97.8 F Pulse Rate 67 Respiratory 19 Rate Blood Pressure 181/80 O2 Sat by Pulse 98 Oximetry Medical Decision Making - Medical Decision Making Was pt. sent in by a medical professional or institution (, PA, PHYSICAL EDUCATION AIDE, urgent care, hospital, or residential...) When possible be specific @ -No Did you speak to anyone other than the patient for history (EMS, parent, family, police, friend...)? What history was obtained from this source @ -No Did you review nursing and triage notes (agree or disagree)? Why? @ -I reviewed and agree with nursing and triage notes Were old charts reviewed (outside hosp., previous admission, EMS record, old EKG, old radiological studies, urgent care reports/EKG's, residential records)? Report findings @ -No old charts were reviewed Differential Diagnosis (chest pain, altered mental status, abdominal pain women, abdominal pain men, vaginal bleeding, weakness, fever, dyspnea, syncope, headache, dizziness, GI bleed, back pain, seizure, CVA, palpatations, mental health, musculoskeletal)? @ -Differential Abdominal Pain Men: Appendicitis, cholecystitis, diverticulosis, ischemic bowel, pancreatitis, hepatitis, UTI, gastroenteritis, AAA, incarcerated hernia, bowel obstruction, constipation, inflammatory bowel, hepatitis, peptic ulcer disease, splenic infarction, perforated viscus, testicular torsion, this is not meant to be an all-inclusive list EKG interpreted by me (3pts min.). @ -As above X-rays interpreted by me (1pt min.). @ -None done CT interpreted by me (1pt min.). @ -CT shows appendicitis U/S interpreted by me (1pt. min.). @ -None done What testing was considered but not performed or refused? (CT, X-rays, U/S, labs)? Why? @ -None What meds were considered but not given or refused? Why? @ -None Did you discuss the management of the patient with other professionals (professionals i.e. DrMelba, PA, PHYSICAL EDUCATION AIDE, lab, RT, psych nurse, medical social consultant, engineering aid, teacher, conservation officer, case briefer)? Give summary @ -Discussed with MANGO Issa of [facility] who accepted the consult. Discussed with on-call surgeon Dr. Hanson who accepted the admission. Was smoking cessation discussed for >3mins.? @ -No Was critical care preformed (if so, how long)? @ -No Were there social determinants of health that impacted care today? How? (Homelessness, low income, unemployed, alcoholism, drug addiction, transportation, low edu. Level, literacy, decrease access to med. care, [facility], rehab)? @ -No Was there de-escalation of care discussed even if they declined (Discuss DNR or withdrawal of care, Hospice)? DNR status @ -No What co-morbidities impacted this encounter? (DM, HTN, Smoking, COPD, CAD, Cancer, CVA, ARF, Chemo, Hep., AIDS, mental health diagnosis, sleep apnea, morbid obesity)? @ -None Was patient admitted / discharged? Hospital course, mention meds given and route, prescriptions, significant lab abnormalities, going to OR and other pertinent info. @ -Patient presents with right-sided abdominal pain. Will obtain abdominal laboratory studies as well as as well as CT imaging. Does have a history of kidney stones. CT without contrast will be obtained. He will be given IV analgesia medications, fluids, Zofran, Protonix. He was in agreement this plan. Vitals are within acceptable limits. Laboratory studies remarkable for leukocytosis of 15. Patient does have CKD with an elevated BUN of 31 and creatinine of 2.02 which does appear to be chronic. Slightly elevated lipase of 951. CT imaging of the abdomen pelvis reveals acute appendicitis. No evidence of pancreatitis. Patient started on Zosyn. Made NPO. Started on IV fluids. Medicine consulted and spoke with P Maegan FERMIN who accepted the consult. I spoke with on-call surgeon, Dr. Yates who was in agreement the plan and accepted the admission. Undiagnosed new problem with uncertain prognosis? @ -No Drug Therapy requiring intensive monitoring for toxicity (Heparin, Nitro, Insulin, Cardizem)? @ -No Were any procedures done? @ -No Diagnosis/symptom? @ -Appendicitis Acute, or Chronic, or Acute on Chronic? @ -Acute Uncomplicated (without systemic symptoms) or Complicated (systemic symptoms)? @ -Complicated Side effects of treatment? @ -None Exacerbation, Progression, or Severe Exacerbation] @ -No Poses a threat to life or bodily function? @ -Potentially, yes - Lab Data Result diagrams: 02/21/25 04:21 02/21/25 04:21 Lab Results 02/21/25 02/21/25 02/21/25 Range/Units 04:21 04:21 04:21 WBC 15.02 H (4.50-10.00) 10*3/uL RBC 4.42 (4.40-5.60) 10*6/uL Hgb 13.5 (13.0-17.0) g/dL Hct 40.6 (39.6-50.0) % MCV 91.9 (80.0-97.0) fL MCH 30.5 (27.0-32.0) pg MCHC 33.3 (32.0-37.0) g/dL Plt Count 197 (140-440) 10*3/uL MPV 9.6 (9.5-12.2) fL Immature Gran % (Auto) 0.5 % Neutrophils % 75.6 % Lymphocytes % 12.1 % Monocytes % 7.8 % Eosinophils % 3.5 % Basophils % 0.5 % Immature Gran # 0.07 H (0.00-0.04) 10*3/uL Neutrophils # 11.35 H (1.80-7.70) 10*3/uL Lymphocytes # 1.82 (0.90-5.00) 10*3/uL Monocytes # 1.17 H (0.20-1.00) 10*3/uL Eosinophils # 0.53 H (0.04-0.35) 10*3/uL Basophils # 0.08 (0.00-0.10) 10*3/uL Sodium 142 (137-145) mmol/L Potassium 3.7 (3.5-5.1) mmol/L Chloride 106 (98-107) mmol/L Carbon Dioxide 25 (22-30) mmol/L Anion Gap 11 mmol/L BUN 31 H (9-20) mg/dL Creatinine 2.02 H (0.66-1.25) mg/dL Est GFR (CKD-EPI)AfAm 37 (>60 ml/min/1.73 sqM) Est GFR (CKD-EPI)NonAf 32 (>60 ml/min/1.73 sqM) Glucose 120 H (74-99) mg/dL Calcium 9.1 (8.4-10.2) mg/dL Total Bilirubin 0.8 (0.2-1.3) mg/dL AST 35 (17-59) U/L ALT 19 (4-49) U/L Alkaline Phosphatase 52 (38-126) U/L Total Protein 7.2 (6.3-8.2) g/dL Albumin 4.4 (3.5-5.0) g/dL Amylase 175 H (30-110) U/L Lipase 951 H (23-300) U/L Urine Color Light Yellow Urine Appearance Clear (Clear) Urine pH 5.5 (5.0-8.0) Ur Specific [place] 1.028 (1.001-1.035) Urine Protein Trace H (Negative) Urine Glucose (UA) 4+ H (Negative) Urine Ketones Negative (Negative) Urine Blood Negative (Negative) Urine Nitrite Negative (Negative) Urine Bilirubin Negative (Negative) Urine Urobilinogen <2.0 (<2.0) mg/dL Ur Leukocyte Esterase Negative (Negative) Disposition Clinical Impression: Appendicitis, CKD (chronic kidney disease) Disposition: ADMITTED IP TO THIS HOSP Condition: Stable Referrals: Riccardo Rizo MD [Primary Care Provider] - 1-2 days Time of Disposition: 06:57
[2025-02-21] MEDS: PIPERACILLIN-TAZOBACTAM 3.375 GM in SODIUM CHLORIDE 0.9% 100 ML IVPB SCH (07:20)
[2025-02-21] MEDS: LACTATED RINGERS 1,000 ML IV SCH (07:21)
[2025-02-21] MEDS ORDERED: ONDANSETRON 4 MG/2 ML VIAL IVP PRN (07:43)
[2025-02-21] MEDS ORDERED: NALOXONE 0.4 MG/ML 1 ML VIAL IV PRN (07:43)
--- NOTE | 2025-02-21 10:48 | P.HPIM ---
History of Present Illness 74-year-old male came with current right-sided abdominal pain found to have appendicitis patient is admitted to general surgery patient will undergo appendectomy today. Patient pain is fairly well-controlled at this time. Patient does have history of hypertension blood pressure is slightly high because of the pain. Patient does not have any fever chills. Patient is diabetic. Denied any history of coronary disease or congestive heart failure EKG was done which is normal sinus rhythm without any significant abnormality. REVIEW OF SYSTEMS: All other systems are negative except those mentioned in the HPI PHYSICAL EXAMINATION: GENERAL: The patient is alert and oriented x3, not in any acute distress. Well developed, well nourished. HEENT: Pupils are round and equally reacting to light. EOMI. No scleral icterus. No conjunctival pallor. Normocephalic, atraumatic. No pharyngeal erythema. No thyromegaly. CARDIOVASCULAR: S1 and S2 present. No murmurs, rubs, or gallops. PULMONARY: Chest is clear to auscultation, no wheezing or crackles. ABDOMEN: Soft, nontender, nondistended, normoactive bowel sounds. No palpable organomegaly. MUSCULOSKELETAL: No joint swelling or deformity. EXTREMITIES: No cyanosis, clubbing, or pedal edema. NEUROLOGICAL: Gross neurological examination did not reveal any focal deficits. SKIN: No rashes. Assessment and plan -Acute appendicitis patient will undergo appendectomy today. Patient is a low operative risk for surgery. As this is an urgent or emergent surgery patient will not need clearance anyway. --Type 2 diabetes mellitus patient is a long-acting we will insulin will be cut down to 25 units from 45 units and continue with sliding scale. Once he starts you eating at least full liquid to soft diet he can be transition to 45 units of Lantus. - Hypertension patient blood pressure is elevated because of her pain, patient was already resumed on lisinopril which will be continued If needed can use oral hydralazine 50 to 100 mg for elevated blood pressure so that patient can get the surgery done -Hyperlipidemia - Asthma without any acute exacerbation DVT prophylaxis: As per primary service Past Medical History Past Medical History: Asthma, Diabetes Mellitus, Hyperlipidemia, Hypertension Additional Past Medical History / Comment(s): hx heart murmer, kidney stones, umbilical hernia, DISLOCATED LEFT SHOULDER IN OCTOBER-GOING TO THERAPY History of Any Multi-Drug Resistant Organisms: None Reported Past Surgical History: Orthopedic Surgery Additional Past Surgical History / Comment(s): rt knee surgery, mole removed from rt upper chest, rt shoulder-rotator cuff, kidney stones blasted multiple times, CYSTOSCOPIES, COLONOSCOPY, BILAT CATARACTS REMOVED WITH LENS IMPLANTS Past Anesthesia/Blood Transfusion Reactions: No Reported Reaction Past Psychological History: Depression Smoking Status: Never smoker Past Alcohol Use History: None Reported Past Drug Use History: None Reported - Past Family History Sister(s) Family Medical History: Deep Vein Thrombosis (DVT) Medications and Allergies Home Medications Medication Instructions Recorded Confirmed Type Escitalopram Oxalate [Lexapro] 20 mg PO DAILY 09/19/18 02/21/25 History INSULIN LISPRO (humaLOG) [humaLOG] 10 units SQ AC-BRKFST 08/19/22 02/21/25 History INSULIN LISPRO (humaLOG) [humaLOG] 15 units SQ AC-BID@1300,1700 08/19/22 02/21/25 History Atorvastatin [Lipitor] 20 mg PO DAILY 01/31/25 02/21/25 History Dapagliflozin Propanediol [Farxiga] 5 mg PO DAILY 01/31/25 02/21/25 History Insulin Glargine,Hum.rec.anlog 45 units SQ DAILY 01/31/25 02/21/25 History [Toujeo Solostar] Semaglutide [Ozempic] 1 mg SQ TAVARES 01/31/25 02/21/25 History Sodium Bicarbonate Tab 650 mg PO DAILY 01/31/25 02/21/25 History allopurinoL 100 mg PO DAILY 01/31/25 02/21/25 History lisinopriL [Zestril] 5 mg PO DAILY 01/31/25 02/21/25 History Allergies Allergy/AdvReac Type Severity Reaction Status Date / Time No Known Allergies Allergy Verified 02/21/25 08:00 Physical Exam Vitals: Vital Signs Temp Pulse Resp BP Pulse Ox 02/21/25 03:50 97.8 F 67 19 181/80 98 Intake and Output 02/20/25 02/21/25 02/21/25 22:59 06:59 14:59 Other: Voiding Method Toilet Weight 92.986 kg Results CBC & Chem 7: 02/21/25 04:21 02/21/25 04:21 Labs: Abnormal Lab Results - Last 24 Hours (Table) 02/21/25 02/21/25 02/21/25 Range/Units 04:21 04:21 04:21 WBC 15.02 H (4.50-10.00) 10*3/uL Immature Gran # 0.07 H (0.00-0.04) 10*3/uL Neutrophils # 11.35 H (1.80-7.70) 10*3/uL Monocytes # 1.17 H (0.20-1.00) 10*3/uL Eosinophils # 0.53 H (0.04-0.35) 10*3/uL BUN 31 H (9-20) mg/dL Creatinine 2.02 H (0.66-1.25) mg/dL Glucose 120 H (74-99) mg/dL Amylase 175 H (30-110) U/L Lipase 951 H (23-300) U/L Urine Protein Trace H (Negative) Urine Glucose (UA) 4+ H (Negative)
[2025-02-21] MEDS: lisinopriL 5 MG TAB PO SCH (10:57)
[2025-02-21] MEDS: SODIUM CHLORIDE 0.9% 1,000 ML IV ONE ×3 (11:10→23:41)
[2025-02-21] MEDS: INSULIN LISPRO (HumaLOG) 100 UNIT/ML 10 mL VL SQ SCH ×2 (12:38→13:29)
--- NOTE | 2025-02-21 13:06 | P.GSHP ---
History of Present Illness H&P Date: 02/21/25 CHIEF COMPLAINT: Abdominal pain HISTORY OF PRESENT ILLNESS: This is a 74-year-old male who presented to the hospital with complaints of right lower quadrant abdominal pain. Patient reports that the pain started 2 days ago. Pain initially around the umbilicus and has moved down into the right lower quadrant. He reports that the pain feels different than his kidney stone pain. Patient reports having procedure for his kidney stones about [address] Johnson. Patient had CT scan abdomen pelvis completed that had showed evidence of acute appendicitis. Did have evidence of leukocytosis. He does have a past medical history of diabetes, hypertension chronic kidney disease and kidney stones. Denies any prior abdominal surgeries. PAST MEDICAL HISTORY: See list. PAST SURGICAL HISTORY: See list. MEDICATIONS: See list. ALLERGIES: See list. SOCIAL HISTORY: No illicit drug use. REVIEW OF SYSTEMS: CONSTITUTIONAL: Denies fever or chills. HEENT: Denies blurred vision, vision changes, or eye pain. Denies hemoptysis ENDOCRINE: Denies heat or cold intolerance. CARDIOVASCULAR: Denies chest pain or pressure. RESPIRATORY: No shortness of breath. GASTROINTESTINAL: Please refer to HPI otherwise unremarkable NEURO: Denies history of seizures. PSYCH: No depression or suicidal ideation HEMATOLOGIC: Denies bleeding disorders. LYMPHATIC: The patient denies any lumps and bumps around the neck. GENITOURINARY: Denies any blood in urine or increased urinary frequency. MUSCULOSKELETAL: Denies myalgias. Denies joint swelling. Denies decreased range of motion beyond patients baseline. SKIN: Denies pruitis. Denies rash. PHYSICAL EXAM: VITAL SIGNS: Reviewed GENERAL: Well-developed in no acute distress. HEENT: No sclera icterus. Extraocular movements grossly intact. Moist buccal mucosa. Head is atraumatic, normocephalic. Hears conversational speech. No nasal draina ge. NECK: Supple without lymphadenopathy. CHEST: Non-labored respirations and equal bilateral excursions. CARDIOVASCULAR: Palpable 2+ radial pulses. ABDOMEN: Soft. Nondistended. Tenderness palpation right lower quadrant. No guarding or rebound tenderness noted MUSCULOSKELETAL: No clubbing or cyanosis. NEUROLOGIC: No focal or lateralizing signs. Cranial nerves II through XII grossly intact. PSYCH: Appropriate affect. Alert and oriented to person, place and time. SKIN: Well perfused. Good skin turgor. LABORATORY DATA: WBC 15.02 Hgb 13.5 platelets 197 Sodium is 142 potassium 3.7 creatinine 2.02 Lipase 951 IMAGING: CT scan abdomen pelvis reports findings consistent with acute appendicitis ASSESSMENT: 1. Acute appendicitis 2. Elevated lipase 3. Diabetes mellitus 4. Hypertension PLAN: - Patient scheduled for Robotic appendectomy today with Dr. Yates - N.p.o. -Continue IV antibiotics -Continue IV fluids -Continue pain management -Medicine service consulted for medical management Physician Gaming Cashier note has been reviewed by physician. Signing provider agrees with the documented findings, assessment, and plan of care. Please see additional documentation below per MD CHIEF COMPLAINT: Appendicitis HISTORY OF PRESENT ILLNESS: The patient is a 74 year old male who recently had kidney stone removal 2+ weeks ago. Patient had been in antibiotics. Presents with increasing epigastric right lower quadrant abdominal pain. Pain has been worse in the last 2 days. PAST MEDICAL HISTORY: See list and reviewed PAST SURGICAL HISTORY: See list and reviewed MEDICATIONS: See list and reviewed ALLERGIES: See list and reviewed SOCIAL HISTORY: See list and reviewed FAMILY HISTORY: See list and reviewed REVIEW OF ORGAN SYSTEMS: CONSTITUTIONAL: No fevers or chills. No recent weight loss. EYES: Denies any trouble with vision. No glasses. HEENT: No difficulties with hearing. No nosebleeds. No difficulty swallowing. RESPIRATORY: Has asthma. CARDIOVASCULAR: Hyperlipidemia with hypertensive heart disease. Has cardiac murmur. GASTROINTESTINAL: Denies fatty food intolerance. Denies change in bowel habits and gas bloat. GENITOURINARY: Has kidney stones. NEUROLOGICAL: Denies any numbness or tingling along the distal extremities. No seizure disorders or headaches. MUSCULOSKELETAL: Has gout. Has back pain, stiffness or joint arthritis. SKIN: No current skin cancer. No rash. PSYCHIATRIC: Depressive disorder. ENDOCRINE: Insulin-dependent diabetes. Hyperlipidemia. HEME/LYMPHATIC: Denies any lumps and bumps around the neck. No recent deep venous thrombosis. ALLERGY/IMMUNOLOGY: No immunoglobulin therapy. No immune deficiencies. BREAST: Denies current breast lumps, pain or nipple discharge. PHYSICAL EXAM: VITALS: Reviewed CONSTITUTIONAL: Well developed and in no acute distress. EYES: Conjuctivae without sclera icterus. Extraocular movements grossly intact. HEAD, EARS, NOSE, THROAT: Moist buccal mucosa. Head is atraumatic, normocephalic. Hears conversational speech. No nasal drainage. NECK: Supple. No JV distention. No thyroidomegaly. RESPIRATORY: Non-labored respirations and equal bilateral excursions. No gross wheezes. CARDIOVASCULAR: Palpable 2+ radial pulses. ABDOMEN: Tender right lower quadrant. Has peritonitis. LYMPH: No neck lymphadenopathy. MUSCULOSKELETAL: No clubbing cyanosis or edema SKIN: Warm and well perfused with good skin turgor. NEUROLOGIC: Cranial nerves II through XII grossly intact. No focal or lateralizing signs. PSYCH: Appropriate affect. Alert and oriented to person, place and time. Displays appropriate insight. CLINCAL LABS: Reviewed. WBC of 15,000. Creatinine elevated 2.02 EKG: Demonstrates normal sinus rhythm. IMAGING: Independently reviewed. CT of the abdomen pelvis independent review demonstrates colonic diverticulosis. Inflammation of the right lower quadrant. 3 appendicolith identified. This is my independent interpretation. RADIOLOGY: Report reviewed demonstrate acute appendicitis RECORDS: previous old records reviewed ASSESSMENT: 1. Acute appendicitis 2. History of kidney stone 3. Renal insufficiency 4. Leukocytosis of PLAN: 1. IV fluid hydration. 2. IV antibiotics 3. Inpatient admission for acute appendicitis 4. Patient's elevated risk due to recent procedures less than 30 days ADVANCE DIRECTIVE: CODE STATUS in chart Dictation was produced using [employer] dictation software. Please excuse any grammatical, word or spelling errors. Past Medical History Past Medical History: Asthma, Diabetes Mellitus, Hyperlipidemia, Hypertension Additional Past Medical History / Comment(s): hx heart murmer, kidney stones, umbilical hernia, DISLOCATED LEFT SHOULDER IN OCTOBER-GOING TO THERAPY History of Any Multi-Drug Resistant Organisms: None Reported Past Surgical History: Orthopedic Surgery Additional Past Surgical History / Comment(s): rt knee surgery, mole removed from rt upper chest, rt shoulder-rotator cuff, kidney stones blasted multiple times, CYSTOSCOPIES, COLONOSCOPY, BILAT CATARACTS REMOVED WITH LENS IMPLANTS Past Anesthesia/Blood Transfusion Reactions: No Reported Reaction Past Psychological History: Depression Smoking Status: Never smoker Past Alcohol Use History: None Reported Past Drug Use History: None Reported - Past Family History Sister(s) Family Medical History: Deep Vein Thrombosis (DVT) Medications and Allergies Home Medications Medication Instructions Recorded Confirmed Type Escitalopram Oxalate [Lexapro] 20 mg PO DAILY 09/19/18 02/21/25 History INSULIN LISPRO (humaLOG) [humaLOG] 10 units SQ AC-KT 08/19/22 02/21/25 Hi story INSULIN LISPRO (humaLOG) [humaLOG] 15 units SQ AC-BID@1300,1700 08/19/22 02/21/25 History Atorvastatin [Lipitor] 20 mg PO DAILY 01/31/25 02/21/25 History Dapagliflozin Propanediol [Farxiga] 5 mg PO DAILY 01/31/25 02/21/25 History Insulin Glargine,Hum.rec.anlog 45 units SQ DAILY 01/31/25 02/21/25 History [Toujeo Solostar] Semaglutide [Ozempic] 1 mg SQ TAVARES 01/31/25 02/21/25 History Sodium Bicarbonate Tab 650 mg PO DAILY 01/31/25 02/21/25 History allopurinoL 100 mg PO DAILY 01/31/25 02/21/25 History lisinopriL [Zestril] 5 mg PO DAILY 01/31/25 02/21/25 History Acetaminophen Tab [Tylenol Tab] 1,000 mg PO Q6HR PRN #30 tablet 02/22/25 Rx Simethicone 40 mg/0.6 ml Drops 40 mg PO QID ml 02/22/25 Rx [Mylicon Drops] Simethicone [Gas-X] 125 mg PO AC-TID PRN #20 capsule 02/22/25 Rx Allergies Allergy/AdvReac Type Severity Reaction Status Date / Time No Known Allergies Allergy Verified 02/21/25 08:00 Surgical - Exam Vital Signs Temp Pulse Resp BP Pulse Ox 97.8 F 67 19 181/80 98 02/21/25 03:50 02/21/25 03:50 02/21/25 03:50 02/21/25 03:50 02/21/25 03:50 Results - Labs 02/22/25 07:34 02/22/25 07:34 Abnormal Lab Results - Last 24 Hours (Table) 02/21/25 02/21/25 02/21/25 Range/Units 04:21 04:21 04:21 WBC 15.02 H (4.50-10.00) 10*3/uL Immature Gran # 0.07 H (0.00-0.04) 10*3/uL Neutrophils # 11.35 H (1.80-7.70) 10*3/uL Monocytes # 1.17 H (0.20-1.00) 10*3/uL Eosinophils # 0.53 H (0.04-0.35) 10*3/uL BUN 31 H (9-20) mg/dL Creatinine 2.02 H (0.66-1.25) mg/dL Glucose 120 H (74-99) mg/dL Amylase 175 H (30-110) U/L Lipase 951 H (23-300) U/L Urine Protein Trace H (Negative) Urine Glucose (UA) 4+ H (Negative) Diabetes panel 02/21/25 Range/Units 04:21 Sodium 142 (137-145) mmol/L Potassium 3.7 (3.5-5.1) mmol/L Chloride 106 (98-107) mmol/L Carbon Dioxide 25 (22-30) mmol/L BUN 31 H (9-20) mg/dL Creatinine 2.02 H (0.66-1.25) mg/dL Glucose 120 H (74-99) mg/dL Calcium 9.1 (8.4-10.2) mg/dL AST 35 (17-59) U/L ALT 19 (4-49) U/L Alkaline Phosphatase 52 (38-126) U/L Total Protein 7.2 (6.3-8.2) g/dL Albumin 4.4 (3.5-5.0) g/dL Calcium panel 02/21/25 Range/Units 04:21 Calcium 9.1 (8.4-10.2) mg/dL Albumin 4.4 (3.5-5.0) g/dL Pituitary panel 02/21/25 Range/Units 04:21 Sodium 142 (137-145) mmol/L Potassium 3.7 (3.5-5.1) mmol/L Chloride 106 (98-107) mmol/L Carbon Dioxide 25 (22-30) mmol/L BUN 31 H (9-20) mg/dL Creatinine 2.02 H (0.66-1.25) mg/dL Glucose 120 H (74-99) mg/dL Calcium 9.1 (8.4-10.2) mg/dL Adrenal panel 02/21/25 Range/Units 04:21 Sodium 142 (137-145) mmol/L Potassium 3.7 (3.5-5.1) mmol/L Chloride 106 (98-107) mmol/L Carbon Dioxide 25 (22-30) mmol/L BUN 31 H (9-20) mg/dL Creatinine 2.02 H (0.66-1.25) mg/dL Glucose 120 H (74-99) mg/dL Calcium 9.1 (8.4-10.2) mg/dL Total Bilirubin 0.8 (0.2-1.3) mg/dL AST 35 (17-59) U/L ALT 19 (4-49) U/L Alkaline Phosphatase 52 (38-126) U/L Total Protein 7.2 (6.3-8.2) g/dL Albumin 4.4 (3.5-5.0) g/dL
--- NOTE | 2025-02-21 14:57 | P.HPADDEND ---
H&P Addendum H&P Addendum Date: 02/21/25 Patient seen and evaluated. Patient reports being on antibiotics at home for his recent kidney stones. EKG is normal. Patient had early hypertension systolic in 180s with repeat pending. Patient is elevated risk for robotic appendectomy.
[2025-02-21 15:14] LABS: Glucose,Whole Blood 64 mg/dL (70-110)
[2025-02-21] MEDS: DEXTROSE 50% SYRINGE 50 ML IVP STA (16:18)
[2025-02-21] MEDS: MORPHINE SULFATE 4 MG/ML SYRINGE IV PRN (17:53)
[2025-02-21 18:16] LABS: Glucose,Whole Blood 76 mg/dL (70-110)
[2025-02-21 20:00] LABS: Glucose,Whole Blood 71 mg/dL (70-110)
[2025-02-21] MEDS: DEXTROSE 50% SYRINGE 50 ML IVP ONE (20:05)
[2025-02-21] MEDS ORDERED: NEOSTIGMINE 1 MG/ML 10 ML VIAL ONE (21:30)
[2025-02-21] MEDS ORDERED: ROCURONIUM 10 MG/ML (5 ML VIAL) IV ONE (21:30)
[2025-02-21] MEDS ORDERED: SUCCINYLCHOLINE CHLORIDE 200 MG/10 ML VIAL IV ONE (21:30)
[2025-02-21] MEDS ORDERED: GLYCOPYRROLATE 0.2 MG/ML 2 ML VIAL ONE (21:30)
[2025-02-21] MEDS ORDERED: fentaNYL (PF) 50 MCG/ML 2 ML AMP ONE (21:30)
[2025-02-21] MEDS ORDERED: ONDANSETRON 4 MG/2 ML VIAL ONE (21:30)
[2025-02-21] MEDS ORDERED: LIDOCAINE 1% INJ 10MG/ML (20 ML MDV) ONE (21:30)
[2025-02-21] MEDS ORDERED: PROPOFOL 10 MG/ML 20 ML VIAL IV ONE (21:30)
[2025-02-21] MEDS: LIDOCAINE 1%-EPI 1:100,000 20 ML VIAL SQ ONE (21:51)
[2025-02-21] MEDS: SODIUM CHLORIDE 0.9% 100 ML with ceFAZolin 2,000 MG IV ONE (22:03)
[2025-02-21] MEDS ORDERED: HYDROmorphone 1 MG/ML 1 ML SYRINGE IVP PRN (22:49)
[2025-02-21 23:05] LABS: Glucose,Whole Blood 88 mg/dL (70-110)
[2025-02-21] MEDS: SODIUM CHLORIDE 0.9% 1,000 ML IV SCH (23:11)
[2025-02-21] MEDS: TAMSULOSIN 0.4 MG CAP.ER.24H PO STA (23:35)
[2025-02-22] MEDS: SIMETHICONE 40 MG/0.6 ML DROPS 2,000 MG/30 ML BOTTLE PO SCH (00:08)
[2025-02-22] MEDS: ACETAMINOPHEN IV (For NPO) 1,000 MG in EMPTY BAG 1 BAG IVPB SCH (00:16)
[2025-02-22 06:12] LABS: Glucose,Whole Blood 98 mg/dL (70-110)
[2025-02-22 07:26] VITALS: BP 143/75; PULSE 60; RESP 16; TEMP 98
[2025-02-22 07:50] LABS: Basophils # (A) 0.04 10*3/uL (0.00-0.10); Basophils % (A) 0.5 %; Eosinophils % (A) 2.6 %; HCT 33.9 % (39.6-50.0); HGB 10.8 g/dL (13.0-17.0); Lymphocytes # (A) 1.54 10*3/uL (0.90-5.00); Lymphocytes % (A) 19.7 %; MCH 30.2 pg (27.0-32.0); MCHC 31.9 g/dL (32.0-37.0); MCV 94.7 fL (80.0-97.0); Mean Platelet Volume 9.2 fL (9.5-12.2); Monocytes # (A) 0.57 10*3/uL (0.20-1.00); Monocytes % (A) 7.3 %; Neutrophils # (A) 5.44 10*3/uL (1.80-7.70); Neutrophils % (A) 69.5 %; Platelet Count 127 10*3/uL (140-440); RBC 3.58 10*6/uL (4.40-5.60); RDW 13.1 % (11.5-14.5); WBC 7.82 10*3/uL (4.50-10.00)
[2025-02-22 08:03] LABS: ALT 14 U/L (4-49); AST 22 U/L (17-59); African American GFR (CKD) 44 (>60 ml/min/1.73 sqM); Albumin 3.2 g/dL (3.5-5.0); Albumin/Globulin Ratio 1.6; Alkaline Phosphatase 29 U/L (38-126); Anion Gap 5 mmol/L; Blood Urea Nitrogen 23 mg/dL (9-20); Calcium 8.2 mg/dL (8.4-10.2); Carbon Dioxide 24 mmol/L (22-30); Chloride 109 mmol/L (98-107); Glucose 113 mg/dL (74-99); Non-African American GFR(CKD) 38 (>60 ml/min/1.73 sqM); Potassium 4.7 mmol/L (3.5-5.1); Sodium 138 mmol/L (137-145); Total Protein 5.2 g/dL (6.3-8.2)
[2025-02-22] MEDS: ATORVASTATIN 20 MG TAB PO SCH (08:19)
[2025-02-22] MEDS: allopurinoL 100 MG TAB PO SCH (08:19)
[2025-02-22] MEDS: ESCITALOPRAM 20 MG TAB PO SCH (08:19)
[2025-02-22] MEDS: INSULIN LISPRO (HumaLOG) 100 UNIT/ML 10 mL VL SQ SCH (08:20)
[2025-02-22] MEDS: INSULIN GLARGINE (LANTUS) 100 UNIT/ML SYR SQ SCH (08:20)
--- NOTE | 2025-02-22 10:26 | P.PN ---
Subjective Progress Note Date: 02/22/25 CHIEF COMPLAINT: Acute appendicitis HISTORY OF PRESENT ILLNESS: The patient is a 74-year-old male status post appendectomy 02/21/2025 for acute appendicitis. Patient's pain is tolerable. He reports tolerating diet. He is now voiding spontaneously. ROS: No reports of nausea and vomiting. No bowel movements. No fevers or chills. No new chest pain. No productive sputum PHYSICAL EXAM: VITAL SIGNS: Reviewed CONSTITUTIONAL: Well developed and in no acute distress. EYES: Conjuctivae without sclera icterus. Extraocular movements grossly intact. HEAD, EARS, NOSE, THROAT: Moist buccal mucosa. Head is atraumatic, normocephalic. Hears conversational speech. No nasal drainage. RESPIRATORY: Non-labored respirations and equal bilateral excursions. CARDIOVASCULAR: Palpable 2+ radial pulses. ABDOMEN: Incisions intact. MUSCULOSKELETAL: No gross deformity of the lower extremities noted. No clubbing. No cyanosis. SKIN: Good skin turgor. Well perfused. NEUROLOGIC: Cranial nerves II through XII grossly intact. No focal or lateralizing signs. PSYCH: Appropriate affect. Alert and oriented to person, place and time. CLINICAL LABS: Reviewed. WBC normal. Hemoglobin declined after hemodilution with multiple IV boluses overnight ASSESSMENT: 1. Acute appendicitis 2. Hypertension PLAN: 1. Patient has no further hypertensive urgencies and blood pressure has been within normal limits. 2. Risk for DVTs for long rides for an hour were reviewed. 3. Outpatient follow-up via telehealth described 4. Patient stable for discharge. Dictation was produced using [employer] dictation software. Please excuse any grammatical, word or spelling errors. Objective - Vital Signs Vital signs: Vital Signs Temp 98.0 F 02/22/25 07:00 Pulse 60 02/22/25 07:00 Resp 16 02/22/25 07:00 BP 143/75 02/22/25 07:00 Pulse Ox 95 02/22/25 07:00 FiO2 Intake & Output 02/21/25 02/22/25 02/22/25 18:59 06:59 18:59 Intake Total 150 1791 Output Total 10 Balance 150 1781 Weight 92.986 kg 92.986 kg Intake: IV 150 1200 Oral 591 Output: Estimated Blood Loss 10 Other: Voiding Method Urinal - Labs CBC & Chem 7: 02/22/25 07:34 02/22/25 07:34 Labs: Abnormal Lab Results - Last 24 Hours (Table) 02/21/25 02/22/25 02/22/25 Range/Units 15:12 07:34 07:34 RBC 3.58 L (4.40-5.60) 10*6/uL Hgb 10.8 L (13.0-17.0) g/dL Hct 33.9 L (39.6-50.0) % MCHC 31.9 L (32.0-37.0) g/dL Plt Count 127 L (140-440) 10*3/uL MPV 9.2 L (9.5-12.2) fL Chloride 109 H (98-107) mmol/L BUN 23 H (9-20) mg/dL Creatinine 1.76 H (0.66-1.25) mg/dL Glucose 113 H (74-99) mg/dL POC Glucose (mg/dL) 64 L (70-110) mg/dL Calcium 8.2 L (8.4-10.2) mg/dL Alkaline Phosphatase 29 L (38-126) U/L Total Protein 5.2 L (6.3-8.2) g/dL Albumin 3.2 L (3.5-5.0) g/dL
--- NOTE | 2025-02-22 14:09 | PN ---
PROGRESS NOTE DATE OF SERVICE: 02/22/2025 SUBJECTIVE: This is a 74-year-old gentleman who was admitted after appendectomy for acute appendicitis, improved significantly. No chest pain. No palpitation. PHYSICAL EXAMINATION: VITAL SIGNS: Pulse is 60, blood pressure 140/74, and respirations 16. CHEST: Clear to auscultation. CARDIOVASCULAR: S1 and S2. ABDOMEN: Soft, status post surgery. LABORATORY DATA: WBC 7.82. ASSESSMENT: 1. Acute appendicitis status post appendectomy. 2. Diabetes mellitus, type 2. 3. Hypertension. 4. Hyperlipidemia. 5. Asthma history. RECOMMENDATIONS AND DISCUSSION: Recommend to continue current management and continue symptomatic treatment. Otherwise resume the home medication. Monitor closely with outpatient setting with primary physician. Rest of the recommendations per Surgery. MMODL / IJN: [id number] /
--- NOTE | 2025-03-09 21:09 | P.OP ---
Date of Procedure: 02/21/25 Description of Procedure: SURGEON: EAGLE LIZAMA MD Preoperative Diagnosis: 1. Acute appendicitis with appendicolith 2. Hypertensive heart disease 3. Kidney stone 4. Diabetes type 2, insulin-dependent 5. Hyperlipidemia 6. Asthma 7. Depressive disorder Postoperative Diagnosis: 1. Acute appendicitis, retrocecal with periappendicitis 2. Hypertensive heart disease 3. Kidney stone 4. Diabetes type 2, insulin-dependent 5. Hyperlipidemia 6. Asthma 7. Depressive disorder Procedure(s) Performed: 1. Robotic-assisted daVinci Xi laparoscopic appendectomy Anesthesia: GETA, local Estimated Blood Loss (ml): 10 Pathology: other (appendix) Condition: stable Disposition: floor Operative Findings: 1. Acute appendicitis without rupture with periappendicitis, retrocecal, 2. Terminal ileum unremarkable 3. Cecum unremarkable 4. Enlarged appendix over 10 cm x 2 cm with necrosis without perforation and with periappendicitis INDICATIONS: The patient is a 74-year-old male who presents with acute appendicitis. Benefits and risks, including infection, open surgery, and bleeding for additional surgery was discussed at length. Informed consent was obtained. All questions of the patient and family were answered. DESCRIPTION: The patient was transferred to the operating room and placed in supine position. The patient had previously voided. The abdomen was then prepped and draped in standard sterile fashion as Ioban was placed along the abdomen to minimize any contamination of skin floor. After a timeout protocol was performed, attention was then brought to the left upper quadrant whereby a 0 degree 5 mm laparoscopic trocar entry was performed. The abdominal cavity was entered and insufflated to 12 mmHg pressure, which was tolerated well. Diagnostic laparoscopy demonstrated no injury to bowel, viscera or mesentery. Next a robotic 8-mm trocar was placed along the left lower quadrant, 10-cm lateral to the midline. A 12 mm port was placed along the left upper quadrant and another 8-mm port left lateral abdominal wall. Ports were placed 8 cm apart from each other including 15-20 cm away from the target anatomy of the right pelvis. The patient was then placed in Trendelenburg position, at least 14 down and right side up at least 7. The robotic da Fidel XI system was primed and docked from the left side of the patient. Using atraumatic graspers and vessel sealer, the robotic system was docked and primed as described. Instruments were interchanged by the community assistant including graspers, robotic stapler and vessel sealer. Next, attention was brought to identify the cecum. A systematic view within the abdominal cavity was started with the small bowel which was unremarkable. The base of the cecum was unremarkable. The appendix was retrocecal. The body of the appendix was moderately dilated with moderate periappendicitis. No perforation was identified. The appendix was dissected free from its surrounding tissues. Blue 45 mm robotic staple loads were fired along the base of the appendix. The staple line was hemostatic. Hemostasis was checked prior to undocking the robot. The robot was undocked. I re-scrubbed into the case. The specimen was removed from the abdominal cavity with an Endo Catch bag through the 12 mm trocar at the left upper quadrant. All instruments and pneumoperitoneum were evacuated from the abdominal cavity. Local anesthetic was infiltrated to all wounds for postop analgesia. All incisions were also cleansed with diluted hydrogen peroxide. The incisions were closed with 4-0 Monocryl. Exofin glue was applied to the rest of the skin incisions. The patient had tolerated the procedure well. The patient was extubated successfully. The patient was transferred to the postanesthesia care unit in stable condition.
--- NOTE | 2025-03-09 21:11 | P.DS ---
Providers Date of admission: 02/21/25 07:44 Expected date of discharge: 02/22/25 Attending physician: Bhavana Yates Primary care physician: Riccardo Rizo [facility] Course: Postoperative Diagnosis: 1. Acute appendicitis, retrocecal with periappendicitis 2. Hypertensive heart disease 3. Kidney stone 4. Diabetes type 2, insulin-dependent 5. Hyperlipidemia 6. Asthma 7. Depressive disorder COURSE: The patient is a 74-year-old male who presents with acute appendicitis. He underwent robotic appendectomy. Postoperatively, pain had improved. He was voiding spontaneously. He was tolerating diet. Procedures: Procedure(s) Performed: 1. Robotic-assisted daVinci Xi laparoscopic appendectomy Anesthesia: GETA, local Estimated Blood Loss (ml): 10 Pathology: other (appendix) Condition: stable Disposition: floor Operative Findings: 1. Acute appendicitis without rupture with periappendicitis, retrocecal, 2. Terminal ileum unremarkable 3. Cecum unremarkable 4. Enlarged appendix over 10 cm x 2 cm with necrosis without perforation and with periappendicitis Patient Condition at Discharge: Stable Plan - Discharge Summary Discharge Rx Participant: No New Discharge Prescriptions: New Simethicone [Gas-X] 125 mg PO AC-TID PRN #20 capsule PRN Reason: Pain Acetaminophen Tab [Tylenol Tab] 1,000 mg PO Q6HR PRN #30 tablet PRN Reason: Pain Simethicone 40 mg/0.6 ml Drops [Mylicon Drops] 40 mg PO QID ml Continue Escitalopram Oxalate [Lexapro] 20 mg PO DAILY lisinopriL [Zestril] 5 mg PO DAILY allopurinoL 100 mg PO DAILY Insulin Glargine,Hum.rec.anlog [Wendy Price] 45 units SQ DAILY Sodium Bicarbonate Tab 650 mg PO DAILY Semaglutide [Ozempic] 1 mg SQ TAVARES Dapagliflozin Propanediol [Farxiga] 5 mg PO DAILY INSULIN LISPRO (humaLOG) [humaLOG] 15 units SQ AC-BID@1300,1700 INSULIN LISPRO (humaLOG) [humaLOG] 10 units SQ AC-BRKFST Atorvastatin [Lipitor] 20 mg PO DAILY Discharge Medication List Escitalopram Oxalate [Lexapro] 20 mg PO DAILY 09/19/18 [History] INSULIN LISPRO (humaLOG) [humaLOG] 10 units SQ AC-BRKFST 08/19/22 [History] INSULIN LISPRO (humaLOG) [humaLOG] 15 units SQ AC-BID@1300,1700 08/19/22 [History] Atorvastatin [Lipitor] 20 mg PO DAILY 01/31/25 [History] Dapagliflozin Propanediol [Farxiga] 5 mg PO DAILY 01/31/25 [History] Insulin Glargine,Hum.rec.anlog [Toujeo Solostar] 45 units SQ DAILY 01/31/25 [History] Semaglutide [Ozempic] 1 mg SQ TAVARES 01/31/25 [History] Sodium Bicarbonate Tab 650 mg PO DAILY 01/31/25 [History] allopurinoL 100 mg PO DAILY 01/31/25 [History] lisinopriL [Zestril] 5 mg PO DAILY 01/31/25 [History] Acetaminophen Tab [Tylenol Tab] 1,000 mg PO Q6HR PRN #30 tablet 02/22/25 [Rx] Simethicone 40 mg/0.6 ml Drops [Mylicon Drops] 40 mg PO QID ml 02/22/25 [Rx] Simethicone [Gas-X] 125 mg PO AC-TID PRN #20 capsule 02/22/25 [Rx] Follow up Appointment(s)/Referral(s): Riccardo Rizo MD [Primary Care Provider] - 1-2 days Bhavana Yates MD [STAFF PHYSICIAN] - 02/25/25 7:15 pm (Telehealth) Patient Instructions/Handouts: Laparoscopic Appendectomy (GEN) Activity/Diet/Wound Care/Special Instructions: TELEHEALTH - DR WILL CALL YOU BETWEEN 9 am to 8 pm NO LONG DRIVES OR AIRPLANE RIDES OVER 60 MINUTES FOR THE NEXT 2 WEEKS, 03/07/25, DUE TO HIGH RISK OF PULMONARY EMBOLISM/DVTs May drive in 24 to 48 hrs No lifting over 10 pounds in 2 weeks until 03/07/25, May shower. No bath tub soaks for two weeks until 03/07/25, Diet as tolerated. Use Tylenol, simethicone and gas-x scheduled for the next 24-48 hours for best pain relief. Use ice along incisions for today to prevent swelling. Discharge Disposition: HOME SELF-CARE
== END 2025-02-22 12:05 | disposition home or self-care (01) ==
LOC: EC 03:46 → 6NMEDSUR 07:44
PROVIDERS: ADMIT Surgery Plastic and Reconstructive Surgery; ATTEND Surgery Plastic and Reconstructive Surgery
DX: K35.80 Unspecified acute appendicitis (principal); R74.8 Abnormal levels of other serum enzymes; E78.5 Hyperlipidemia, unspecified; I12.9 Hypertensive chronic kidney disease with stage 1 through stage 4 chronic kidney disease, or unspecified chronic kidney disease; N18.9 Chronic kidney disease, unspecified; E11.22 Type 2 diabetes mellitus with diabetic chronic kidney disease; F32.A Depression, unspecified; Z79.4 Long term (current) use of insulin; Z79.899 Other long term (current) drug therapy; Z79.84 Long term (current) use of oral hypoglycemic drugs; Z79.85 Long-term (current) use of injectable non-insulin antidiabetic drugs; I13.10 Hypertensive heart and chronic kidney disease without heart failure, with stage 1 through stage 4 chronic kidney disease, or unspecified chronic kidney disease; N20.0 Calculus of kidney; J45.909 Unspecified asthma, uncomplicated
CPT/HCPCS: 44970; S2900; 36415; 74176; 80053; 81003; 82150; 83690; 85025; 87040; 88304; 93005; 96361; 96365; 96366; 96367; 96375; 96376; 99285